=== PATIENT | male | born 1965 | race Caucasian/White ===

== ENCOUNTER 2021-12-31 10:44 | Emergency (ER) | payer OTHER, SELFPAY ==
--- NOTE | ~2021-12-31 | XR_ITS ---
EXAMINATION: XR chest 2V DATE: 12/31/2021 11:24 INDICATION: Chest pain TECHNIQUE: PA and lateral views of the chest were obtained. COMPARISON: None FINDINGS: Hyperexpansion of lungs with increased retrosternal clear space consistent with emphysema better appr eciated on prior cervical spine CT dated 03/20/2015. A couple small calcified nodules in the right low er lung zone and calcified right hilar lymph nodes consistent with old granulomatous disease. No pneu monia, pulmonary edema, pleural effusion or pneumothorax. The cardiomediastinal silhouette is normal. Moderate thoracic spondylosis. Mild anterior wedging of a midthoracic vertebral body. IMPRESSION: 1. No acute cardiopulmonary disease. 2. Emphysema. Reviewed, dictated and finalized at location B.
[2021-12-31 11:03] VITALS: BP 133/56; PULSE 67; RESP 16; TEMP 36.4; O2SAT 99
--- NOTE | 2021-12-31 11:09 | ED.CHESTPAIN ---
HPI - Chest Pain General Chief Complaint: Chest Pain Stated Complaint: Chest pain Time Seen by Provider: 12/31/21 11:09 Source: patient, RN notes reviewed and old records reviewed Mode of arrival: ambulatory Limitations: no limitations History of Present Illness HPI narrative: 56 year old male who presents to [facility] with complaints of upper epigastric pain radiating into chest causing a tightness feeling into his chest. Patient states that pain started about 1300 yesterday and he had to machine puller over on his way home from work due to his discomfort. Patient reports that he has had no nausea or vomiting or any diarrhea,has taken some antacids and also Pepto Bismol for his upper epigastric discomfort, also states that he feels bloated. Patient reports that he is a daily tobacco user, states no alcohol use for 27 years. Patient reports history of hypertension that he takes Lisinopril daily and he has history of anxiety and depression and ADHD. MD complaint: other (chest tightness) Onset (ago): hour(s) (since 1300 yesterday) Pain location: epigastric and parasternal Pain radiation: none Pain scale (0-10): 3 Quality: tightness Treatment prior to arrival: other (antacids) Related Data Allergies Allergy/AdvReac Type Severity Reaction Status Date / Time No Known Allergies Allergy Verified 12/31/21 13:10 Review of Systems Review of Systems: CONSTITUTIONAL: Denies fever, chills, or sweats. EYES: Denies visual changes, redness, or discharge. ENT: Denies rhinorrhea, congestion, sore throat, or otalgia. CARDIOVASCULAR: Reports tightness to his chest,no palpitations, or edema. RESPIRATORY: Denies cough or any acute dyspnea. GASTROINTESTINAL: Reports upper abdominal pain,denies nausea, vomiting, or diarrhea. GENITOURINARY: Denies dysuria or hematuria. SKIN: Denies rash or itching. MUSCULOSKELETAL: Denies back pain, joint pain, or myalgia. NEUROLOGIC: Denies headache, numbness, or weakness. PSYCHIATRIC: Positive for anxiety or depression, ADHD All systems reviewed & are unremarkable except as noted in HPI and below PMFSH Past Medical History Medical History Acute renal failure ADHD Anemia Essential hypertension Herniated disc Surgical History Surgical History H/O inguinal hernia repair History of surgery on lower extremity right lower leg surgery Family History Family History Mother Diabetes mellitus Social History Social History Smoking status: Current every day smoker Tobacco type: cigarettes Alcohol intake: former Alcohol use details: quit 27 years ago Substance use: unknown Gender identity (if verbalized by the patient): Male Comments At time of signature, agree with nursing past medical, surgical, social and family history. There is no relevant family history pertinent to the presenting complaint Exam Narrative: GENERAL: Well-appearing, fair nourished, and in no acute distress. HEAD: Normocephalic, atraumatic. EYES: PERRLA and EOMI. ENT: Nares clear, no rhinorrhea or epistaxis. Mucous membranes moist.TM's normal with good light reflex, throat pink with no lesions or exudate or tonsil swelling NECK: Supple.no lymphadenopathy CHEST: Clear to auscultation. No respiratory distress.SAO2 99% on room air HEART: Regular rate and rhythm. No murmur heard. Normal peripheral pulses.midsternal chest tightness with no radiation of pain no diaphoresis ABDOMEN: Soft, tender upper abdomen, nondistended, normal active bowel sounds denies any vomiting or any nausea or any episodes of diarrhea EXTREMITIES: Normal range of motion. No edema. SKIN: Warm, dry, no rash. NEURO: No focal deficits. Alert and oriented x3. Course Course Level of Care: Express Care Visit Vital Signs Vital signs: Vital Signs Tem
--- NOTE | 2021-12-31 12:01 | ECG_ITS ---
Measurements Intervals [place] Rate: 57 P: 68 OH: 147 QRS: 33 QRSD: 102 T: 66 QT: 417 QTc: 409 Interpretive Statements SINUS BRADYCARDIA POSSIBLE LEFT ATRIAL ENLARGEMENT [-0.1mV P-WAVE IN V1/V2] POSSIBLE LEFT VENTRICULAR HYPERTROPHY [VOLTAGE CRITERIA PLUS LAE OR QRS WIDENING] ABNORMAL ECG NO PREVIOUS ECG AVAILABLE FOR COMPARISON Electronically Signed On 12-31-2021 16:30:13 CDT by Gunnar Villarreal M.D.
== END 2021-12-31 12:14 | disposition short-term general hospital (02) ==
PROVIDERS: Emergency Provider Registered Nurse; PCP Physician Assistant
DX: R07.9 Chest pain, unspecified (principal); I10 Essential (primary) hypertension; Z87.891 Personal history of nicotine dependence; R94.31 Abnormal electrocardiogram [ECG] [EKG]
CPT/HCPCS: 71046; 93005; 99215; G0463

== ENCOUNTER 2021-12-31 12:36 | Observation (INO) | payer OTHER, SELFPAY ==
[2021-12-31] VITALS (12 sets, daily range): BP systolic 125–146; BP diastolic 81–92; PULSE 56–88; RESP 14–20; TEMP 36.2–36.6; O2SAT 98–100
--- NOTE | ~2021-12-31 | CT_ITS ---
EXAMINATION: CT abdomen pelvis wo con DATE: 01/01/2022 08:46 INDICATION: Abdominal pain. TECHNIQUE: Computed tomography (CT) of the abdomen and pelvis was performed without intravenous contr ast. Automated exposure control and iterative reconstruction technique were employed. The dose-length product was 208.31 mGy-cm. COMPARISON: CT abdomen and pelvis 05/27/2018 FINDINGS: The visualized portions of the lung bases demonstrate mild atelectasis. No pleural effusion . The heart size is normal. No pericardial effusion. There is a 13 mm cyst in the liver. The gallblad maureen, spleen, pancreas, and adrenal glands are normal. There is cortical thinning of the kidneys. Ther e are cysts in the kidneys measuring up to 10 mm on the right. There is no urolithiasis. The prostate is mildly enlarged. There are no dilated loops of bowel. The appendix is normal. There is fat strand ing adjacent to the gastric antrum. There are no pathologically enlarged lymph nodes. There is no richard e intraperitoneal fluid. There is severe lower lumbar spondylosis. IMPRESSION: 1. Fat stranding adjacent to the gastric antrum suspicious for peptic ulcer disease. Reviewed, dictated and finalized at location A. IMPRESSION: 1. Fat stranding adjacent to the gastric antrum suspicious for peptic ulcer dis ease.
--- NOTE | ~2021-12-31 | NM_ITS ---
EXAMINATION: NM leelee stress w perfusion DATE: 01/01/2022 13:32 INDICATION: Chest pain TECHNIQUE: Rest images were obtained following intravenous administration of 10.2 mCi Tc99m tetrofosm in (Myoview). The patient was infused intravenously with Lexiscan (Regadenoson). Then, 31.6 mCi Tc99m tetrofosmin (Myoview) was administered intravenously, and stress images were obtained. Data was dmitry nstructed into short axis and horizontal and vertical long axis SPECT images. Gated SPECT images were also obtained. COMPARISON: None. FINDINGS: Mild nonreversible perfusion defect consistent with infarct involving the apical septal, mi d anteroseptal and mid inferoseptal segments. No reversible ischemia. There is normal left ventricul ar chamber size, wall motion and ejection fraction. Left ventricular ejection fraction measures >70% . IMPRESSION: 1. Mild nonreversible infarct at the apical septal, mid anteroseptal and mid posterior septal segment s. 2. Normal left ventricular ejection fraction measuring >70%. Reviewed, dictated and finalized at location B. IMPRESSION: 1. Mild nonreversible infarct at the apical septal, mid anteroseptal and mid po sterior septal segments. 2. Normal left ventricular ejection fraction measuring >70%.
--- NOTE | 2021-12-31 12:40 | ECG_ITS ---
Measurements Intervals [place] Rate: 61 P: 58 DC: 145 QRS: 29 QRSD: 106 T: 71 QT: 395 QTc: 400 Interpretive Statements SINUS RHYTHM NO PREVIOUS ECG AVAILABLE FOR COMPARISON Electronically Signed On 01-02-2022 13:09:15 CDT by Gloria Castillo M.D.
--- NOTE | 2021-12-31 13:04 | ED.CHESTPAIN ---
HPI - Chest Pain General Chief Complaint: Chest Pain Stated Complaint: chest pain Time Seen by Provider: 12/31/21 12:39 Source: patient Mode of arrival: ambulatory Limitations: no limitations History of Present Illness HPI narrative: Patient is a 56-year-old male complain of chest pain, midsternal, tightness, was 6 out of 10, currently no pain, nonradiating started last night. Patient denies any shortness of breath, abdominal pain, nausea, vomiting, diaphoresis, fever or chills. Related Data Allergies Allergy/AdvReac Type Severity Reaction Status Date / Time No Known Allergies Allergy Verified 12/31/21 13:10 Review of Systems Review of Systems: All systems reviewed & are unremarkable except as noted in HPI and below Constitutional: Constitutional: Denies body ache(s), Denies chills, Denies excessive sweating, Denies fatigue, Denies fever(s), Denies headache(s), Denies lethargy, Denies malaise, Denies weakness and Denies weight loss Eyes: Eyes: Denies blurry vision, Denies change in vision and Denies loss of vision ENT: Denies dizziness, Denies ear discharge, Denies headache(s), Denies lip swelling, Denies epistaxis, Denies nasal congestion, Denies neck pain, Denies throat swelling and Denies tongue swelling Cardiovascular: Cardiovascular: Denies chest pain at rest, Denies chest pain with activity, Denies diaphoresis, Denies rapid heart rate, Denies edema, Denies irregular heart rhythm, Denies lightheadedness, Denies palpitations, Denies dyspnea and Denies dyspnea on exertion Respiratory: Respiratory: Denies chest congestion, Denies cough, Denies hemoptysis, Denies dyspnea and Denies dyspnea on exertion Gastrointestinal: Gastrointestinal: Denies abdominal pain, Denies melena, Denies hematochezia, Denies diarrhea, Denies nausea, Denies vomiting and Denies hematemesis Musculoskeletal: Musculoskeletal: Denies abnormal gait, Denies deformity, Denies joint swelling, Denies limited range of motion, Denies neck pain and Denies numbness Neurologic: Denies Abnormal speech present, Denies abnormal gait, Denies confusion, Denies dizziness, Denies headache(s), Denies focal weakness, Denies loss of vision, Denies numbness, Denies Other visual disturbances, Denies Sensory deficit (Neuro) and Denies weakness Psychiatric: Psychiatric: Denies confusion, Denies depression, Denies auditory hallucinations, Denies homicidal ideation and Denies suicidal ideation Endocrine: Endocrine: Denies cold intolerance, Denies excessive sweating, Denies fatigue, Denies heat intolerance and Denies palpitations Hematologic/Lymphatic: Hematologic/Lymphatic: Denies easy bleeding and Denies easy bruising Allergic/Immunologic: Allergic/Immunologic: Denies lip swelling, Denies throat swelling and Denies tongue swelling PMFSH Past Medical History Medical History Acute renal failure ADHD Anemia Essential hypertension Herniated disc Surgical History Surgical History H/O inguinal hernia repair History of surgery on lower extremity right lower leg surgery Family History Family History Mother Diabetes mellitus Social History Social History Smoking status: Current every day smoker Tobacco type: cigarettes Alcohol intake: former Alcohol use details: quit 27 years ago Substance use: unknown Gender identity (if verbalized by the patient): Male Exam Const: General: cooperative, healthy appearing, comfortable, no acute distress, well developed, alert and awake; No confusion Orientation/consciousness: oriented to person, oriented to place, oriented to time, patient oriented x3 and No confusion Limitations: no limitations HENMT: Head: normal to inspection, normocephalic and atraumatic Ears: hearing grossly normal bilaterally,
[2021-12-31] MEDS: ASPIRIN 81 MG CHEWABLE TABLET 324 MG PO (13:11)
[2021-12-31 13:20] LABS: Basophils Percent Auto 0.5 % (0.2-1.2); Eosinophils Absolute Auto 0.2 K/mm3 (0-0.3); Eosinophils Percent Auto 2.3 % (0-4.4); Hematocrit 33.9 % (42.0-52.0); Hemoglobin 10.9 g/dL (14.0-18.0); Immature Granulocyte Absolute 0.02 K/mm3 (0.00-0.031); Immature Granulocyte Percent A 0.2 % (0-0.5); Lymphocytes Percent Auto 23.7 % (18.3-44.2); Mean Corpuscular HGB Conc 32.2 g/dl (32-36); Mean Corpuscular Hemoglobin 30.1 pg (26-34); Mean Corpuscular Volume 93.6 fl (80-100); Mean Platelet Volume 8.7 fl (7.4-10.4); Monocytes Absolute Auto 0.9 K/mm3 (0.1-0.6); Monocytes Percent Auto 9.8 % (2.6-8.5); Neutrophils Absolute Auto 5.6 K/mm3 (1.3-6.7); Neutrophils Percent Auto 63.5 % (45.5-73.1); Platelet Count Result 335 k/mm3 (150-375); Red Blood Count 3.62 M/mm3 (4.6-6.20); Red Cell Distribution Width 13.5 % (11.5-14.5); White Blood Count 8.9 K/mm3 (4.5-10.0)
[2021-12-31 13:29] LABS: Alanine Aminotransferase 21 U/L (4-50); Albumin Level 4.4 g/dL (3.5-5.1); Alkaline Phosphatase 66 U/L (38-126); Anion Gap 6 mmol/L (8-16); Aspartate Amino Transferase 30 U/L (17-59); Bilirubin,Total 0.1 mg/dL (0.2-1.3); Blood Urea Nitrogen 23 mg/dL (9-20); Calcium 9.1 mg/dL (8.4-10.2); Carbon Dioxide 23 mmol/L (22-30); Chloride 108 mmol/L (98-107); Estimated CRCL calculation 54 ml/min; Estimated Glomerular Filt Rate 57; Glucose 85 mg/dL (65-110); Lipase 147 U/L (23-300); Potassium 3.8 mmol/L (3.4-5.0); Sodium 137 mmol/L (137-145)
[2021-12-31 13:41] LABS: Troponin I < 0.012 ng/mL (0.000-0.034)
[2021-12-31 15:39] LABS: Troponin I < 0.012 ng/mL (0.000-0.034)
[2021-12-31 16:01] LABS: INR 1.1; Prothrombin Time 13.9 Seconds (11.1-14.7)
--- NOTE | 2021-12-31 17:07 | PC.NURSE ---
nitro not given, pt denied pain, provider aware
--- NOTE | 2021-12-31 19:52 | PM.IMHP ---
H&P: HPI History of Present Illness Date/Time: 12/31/21 19:52 Chief Complaint: Chest pain. Narrative: This is a 56-year-old male with past medical history significant for hypertension, generalized anxiety disorder. Patient presented to emergency room due to epigastric pain with near-syncope episode, diaphoresis, dizziness, no shortness of breath, no nausea, no vomiting patient had similar episode the day before when driving home have to stop by the side of the road patient resolved on its own to repeat today when patient decided to come to the emergency room for evaluation. Patient initially presented to urgent care facility where he was urged to come to the emergency room and he was sent by ambulance. Patient has been in his usual state of health prior to these denies any PND, orthopnea, leg swelling, shortness of breath. Pain is localized to the epigastric area nonradiating. Preliminary workup has been essentially nonrevealing. Review of Systems Review of Systems: Epigastric pain. Constitutional: Constitutional: Denies chills, Denies fatigue, Denies fever(s), Denies malaise, Denies night sweats, Denies poor appetite and Denies weakness Eyes: Eyes: Denies change in vision ENT: Denies dysphagia, Denies vertigo, Denies nasal congestion, Denies nasal discharge, Denies nasal obstruction and Denies odynophagia Cardiovascular: Cardiovascular: Reports chest pain, Denies pedal edema, Denies leg edema, Reports lightheadedness, Denies radiating jaw, neck or arm pain, Denies palpitations, Denies dyspnea on exertion and Denies orthopnea Respiratory: Respiratory: Denies cough Gastrointestinal: Gastrointestinal: Denies dyspepsia, Denies heartburn, Denies nausea and Denies vomiting Genitourinary: Genitourinary: Denies dysuria Musculoskeletal: Musculoskeletal: Denies arthralgias Integumentary/Breasts: Skin/Breast: Denies rash Neurologic: Denies focal weakness and Denies Sensory deficit (Neuro) Psychiatric: Psychiatric: Reports no additional psychiatric complaints and Reports as per HPI Endocrine: Endocrine: Denies cold intolerance, Denies heat intolerance, Denies polyphagia, Denies polydipsia and Denies palpitations Hematologic/Lymphatic: Hematologic/Lymphatic: Reports no additional hematologic/lymphatic complaints and Reports as per HPI Allergic/Immunologic: Allergic/Immunologic: Reports no additional allergic/immunologic complaints and Reports as per HPI [facility] Past Medical History Medical History (Updated 01/01/22 @ 02:58 by Heydi Martin MD) Acute renal failure ADHD Anemia Essential hypertension Herniated disc Surgical History Surgical History H/O inguinal hernia repair History of surgery on lower extremity right lower leg surgery Family History Family History Mother Diabetes mellitus Social History Social History Smoking status: Light tobacco smoker Tobacco type: cigarettes Alcohol intake: never Alcohol use details: quit 27 years ago Substance use: never Substance use type: does not use Gender identity (if verbalized by the patient): Male Spiritual care concerns: No Meds Home Medications and Allergies Home Medications Medication Instructions Recorded Confirmed Type lisinopril 10 mg tablet 10 mg PO DAILY #90 tablet 12/01/19 12/31/21 Rx bupropion HCl 150 mg PO Q12H 12/31/21 12/31/21 History Allergies Allergy/AdvReac Type Severity Reaction Status Date / Time No Known Allergies Allergy Verified 12/31/21 13:10 Vital Signs Vital Signs - 24 hr 12/31/21 12:36 12/31/21 13:10 12/31/21 13:30 Temperature 97.6 F Pulse Rate 57 L 56 L 63 Respiratory Rate 16 17 Blood Pressure 126/83 125/89 Pulse Oximetry 98 98 12/31/21 14:30 12/31/21 15:19 12/31/21 16:50 Temperature Pulse Rate 58 L 60 88 Respirato
--- NOTE | 2021-12-31 21:12 | PC.NURSE ---
Patient ate [employer] brought in by family member. Reports chest pain worsened after eating. Admitting physician Mario made aware. Morphine ordered and administered.
[2021-12-31] MEDS: MORPHINE SULFATE (*CRX) 2 MG/ML INJ 1 MG IV PUSH (21:13)
[2021-12-31 21:48] LABS: Troponin I < 0.012 ng/mL (0.000-0.034)
--- NOTE | 2021-12-31 21:56 | ADMGEN ---
This patient, Damon Raymundo Jr., was admitted to IMU Room 231-01. Patient/family oriented to hospital policies and general routines including ID bracelet, bed and alarms, visiting hours, pain management, procedures, bathroom and other care routines, personal items, smoking policy, room service/diet, and visiting hours. Information on how to activate the Rapid Response Team has been discussed. Patient/Family are encouraged to report perceived risks to care and to ask questions if they do not understand what they are told or what they should do.
[2021-12-31] MEDS: PANTOPRAZOLE SODIUM IV 40 MG VIAL IV PUSH (23:44)
[2021-12-31] MEDS: buPROPion HCL SR (12 HR) 150 MG TAB PO (23:44)
[2021-12-31] MEDS: polyethylene glycoL 3350 17 GM POWD.PACK PO (23:44)
[2021-12-31] MEDS: HYDROmorphone HCL INJ (*CRX) 1 MG/ML SYR 0.5 MG IV PUSH (23:45)
[2022-01-01] VITALS (15 sets, daily range): BP systolic 101–120; BP diastolic 62–75; PULSE 60–89; RESP 18–20; TEMP 36.1–37.2; O2SAT 96–100
--- NOTE | 2022-01-01 02:51 | EST_ITS ---
Patient Info Name: Damon Raymundo Age: 56 years : 1965 Gender: Male Ht: 68 in Wt: 160 lbs BSA: 1.87 m2 Exam Date: 01/01/2022 12:07 PM Exam Location: [facility] Stress Patient Status: Inpatient Admit Date: 12/31/2021 Staff Ordering Physician: Heydi Martin MD Attending Provider: HELLEN TREVIÑO NP Exercise Technologist: Alyce Montalvo RDCS Nurse: HELLEN TREVIÑO NP Exam Type: CA stress leelee w NM Study Info Indications R07.9 - Chest pain, unspecified A regadenoson stress test was performed. Summary 1. No abnormal ST-T wave changes with lexiscan. 2. Nuclear test results to follow. Protocol: Lexiscan Stress ECG Details Stage: REST Duration (min): 8 min : 8 sec HR (bpm): 64 SBP (mmHg): 113 DBP (mmHg): 81 Stage: REST Duration (min): 21 min : 38 sec HR (bpm): 74 SBP (mmHg): 113 DBP (mmHg): 81 Stage: STAGE 1 Duration (min): 1 min : 0 sec HR (bpm): 84 SBP (mmHg): 121 DBP (mmHg): 81 Stage: RECOVERY Duration (min): 1 min : 0 sec HR (bpm): 92 SBP (mmHg): 138 DBP (mmHg): 84 Stage: RECOVERY Duration (min): 2 min : 0 sec HR (bpm): 93 SBP (mmHg): 138 DBP (mmHg): 84 Stage: RECOVERY Duration (min): 3 min : 0 sec HR (bpm): 88 SBP (mmHg): 136 DBP (mmHg): 73 Stage: RECOVERY Duration (min): 3 min : 4 sec HR (bpm): 88 SBP (mmHg): 136 DBP (mmHg): 73 Rest HR: 74 bpm Peak HR: 98 bpm Rest Sys BP: 113 mmHg Peak Sys BP: 138 mmHg Max Pred HR: 163 bpm % Max Pred HR: 60 % Target HR: 139 bpm Max RPP: 13,524 bpm*mmHg Total Time: 1 min : 0 sec Rest Barger BP: 81 mmHg Peak Barger BP: 84 mmHg Total Dose: 0.4 mg Resting ECG Normal sinus rhythm - normal ECG. Stress ECG No abnormal ST/T wave changes with exercise. Arrhythmias None. Report Signatures
[2022-01-01] MEDS: lisinopriL 10 MG TABLET PO (09:09)
[2022-01-01] MEDS: buPROPion HCL SR (12 HR) 150 MG TAB PO ×2 (09:09→20:52)
[2022-01-01] MEDS: ENOXAPARIN 40 MG/0.4 ML SYRINGE SUB-Q (09:09)
[2022-01-01] MEDS: HYDROmorphone HCL INJ (*CRX) 1 MG/ML SYR 0.5 MG IV PUSH ×3 (09:17→23:30)
--- NOTE | 2022-01-01 11:20 | PC.NURSE ---
Patient off floor to Stress test.
--- NOTE | 2022-01-01 13:20 | PC.NURSE ---
Patient back from stress test without issue.
--- NOTE | 2022-01-01 16:46 | PM.IMPN ---
Progress Note: A&P Assessment and Plan (1) Chest pain: Qualifiers: Chest pain type: unspecified Qualified Code(s): R07.9 - Chest pain, unspecified Code(s): R07.9 - Chest pain, unspecified Status: Acute Assessment and Plan: Stress test in the morning Serial troponins EKG reviewed Continue to monitor Supportive care 01/01/2022 interval history: patient with complaint of chest pain with near syncopal episode, diaphoresis dizziness while driving patient had a similar episodes twice presented emergency department for further evaluation history sets of cardiac enzymes are negative there are no acute changes on EKG to further evaluate patient had a Lexiscan test it showed my non reversible defect, however patient symptoms as a convincing for CO will consult disaster director for further recommendation, will monitor and follow up. (2) Essential hypertension: Code(s): I10 - Essential (primary) hypertension Status: Acute Assessment and Plan: Continue home meds Continue to monitor Subjective Date/time seen: 01/01/22 16:46 Chief Complaint: Chest pain. Narrative: This is a 56-year-old male with past medical history significant for hypertension, generalized anxiety disorder. Patient presented to emergency room due to epigastric pain with near-syncope episode, diaphoresis, dizziness, no shortness of breath, no nausea, no vomiting patient had similar episode the day before when driving home have to stop by the side of the road patient resolved on its own to repeat today when patient decided to come to the emergency room for evaluation. Patient initially presented to urgent care facility where he was urged to come to the emergency room and he was sent by ambulance. Patient has been in his usual state of health prior to these denies any PND, orthopnea, leg swelling, shortness of breath. Pain is localized to the epigastric area nonradiating. Preliminary workup has been essentially nonrevealing. 01/01/2022 interval history: patient with complaint of chest pain with near syncopal episode, diaphoresis dizziness while driving patient had a similar episodes twice presented emergency department for further evaluation history sets of cardiac enzymes are negative there are no acute changes on EKG to further evaluate patient had a Lexiscan test it showed my non reversible defect, however patient symptoms as a convincing for CO will consult disaster director for further recommendation, will monitor and follow up. Review of Systems Review of Systems: All systems reviewed & are unremarkable except as noted in HPI and below Exam Narrative: Patient is comfortable, NAD HEENT: eyes are clear and none icteric LUNGS: normal respiratory effort ABD: not distended Lower extremities: no edema SKIN: nonjaundiced Neuro: grossly intact. Objective Data Vital Signs Vital Signs: Vital Signs - 24 hr 12/31/21 16:50 12/31/21 20:00 12/31/21 21:00 Temperature 98 F Pulse Rate 88 75 69 Respiratory Rate 16 17 18 Blood Pressure 146/88 H 143/85 H 139/89 Pulse Oximetry 98 99 98 12/31/21 21:31 12/31/21 22:00 12/31/21 22:13 Temperature 97.2 F L Pulse Rate 75 64 62 Respiratory Rate 17 20 Blood Pressure 132/89 140/81 Pulse Oximetry 98 100 12/31/21 23:19 01/01/22 00:00 01/01/22 02:00 Temperature 97.2 F L Pulse Rate 72 60 64 Respiratory Rate 18 18 Blood Pressure 135/86 Pulse Oximetry 100 100 01/01/22 04:00 01/01/22 06:00 01/01/22 08:00 Temperature 97.1 F L Pulse Rate 66 68 89 Respiratory Rate 20 Blood Pressure 101/75 Pulse Oximetry 99 01/01/22 08:06 01/01/22 08:12 01/01/22 10:00 Temperature 99.0 F Pulse Rate 80 63 Respiratory Rate 18 Blood Pressure 120/75 Pulse Oximetry 97 97 01/01/22 12:00 01/01/22 14:00 01/01/22 16:00 Temperature Pulse Rate 69 77 76 Respiratory Rate Blood Pressure Pulse Oximetry 01/01/22 16:10 Temperature 98.0 F Pulse Rate 79
--- NOTE | 2022-01-01 17:16 | PM.CNCAR ---
Assessment and Plan Additional Plan This is a 56-year-old man with no prior cardiac history who has had a couple of episodes of concerning chest pain. Risk factors include hypertension and smoking. ECG and biomarkers do not show any evidence of acute coronary syndrome. He does however have a Lexiscan nuclear study which interestingly shows mild fixed defects in the anteroseptal segment and septum. It is therefore not a normal exam. He should undergo a coronary angiogram in this setting I will arrange for the procedure to be done tomorrow morning. The catheterization procedure in detail as well as the risks of been explained to the patient he understands this and is agreeable to proceed Gunnar Villarreal MD [facility] History of Present Illness History of Present Illness Consult date/time: 01/01/22 17:16 Consult reason: chest pain Reason For Visit: Chest Pain Narrative: This is a 56-year-old man that I am seeing at the request of the hospitalist because of chest pain and presumably because of abnormal findings on a nuclear stress test that was done earlier today. The patient has no prior history of cardiac problems. He does have hypertension and a longstanding history of cigarette smoking. 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 in the morning. He described a severe pressure-like sensation in the center of the chest with some radiation into the epigastrium. The discomfort lasted for a while is very hard time answering questions as to how long it was there all together. Eventually it subsided and he went home and rested the rest of the night. The discomfort occurred again this morning while he was at work in his coworkers told him to go home from work he came to the emergency department where he was evaluated and admitted. Patient's electrocardiograms that are in the chart look normal. His troponin levels look normal. A Lexiscan nuclear stress test was done which is mildly abnormal with what is described as a fixed defect in the anteroseptal segment and the septum. The patient in this setting is being seen in consultation. In his usual health he states he is able to conduct normal activities and does not notice any exertional symptomatology. He is not reporting any symptoms orthopnea PND or edema. He appears to be comfortable when I entered the room to see him is a talking on the telephone with his sister. Review of Systems Constitutional: Constitutional: Reports no additional constitutional complaints Eyes: Eyes: Reports no additional eye complaints ENT: Reports system reviewed and no additional complaints, except as documented Cardiovascular: Cardiovascular: Reports as per HPI Respiratory: Respiratory: Reports as per HPI Gastrointestinal: Gastrointestinal: Reports no additional gastrointestinal complaints Musculoskeletal: Musculoskeletal: Reports no additional musculoskeletal complaints Integumentary/Breasts: Skin/Breast: Reports system reviewed and no additional complaints, except as docu Neurologic: Reports system reviewed and no additional complaints, except as documented Endocrine: Endocrine: Reports no additional endocrine complaints Hematologic/Lymphatic: Hematologic/Lymphatic: Reports no additional hematologic/lymphatic complaints Allergic/Immunologic: Allergic/Immunologic: Reports no additional allergic/immunologic complaints [facility] Past Medical History Medical History (Updated 01/01/22 @ 02:58 by Heydi Martin MD) Acute renal failure ADHD Anemia Essential hypertension Herniated disc Surgical History Surgical History H/O inguinal hernia repair History of surgery on lower extremity right lower leg surgery Family History Family History (Reviewed 12/31/21 @ 13:06 by Kunal
--- NOTE | 2022-01-01 19:30 | PC.NURSE ---
Reviewed plan of care with patient and sister
[2022-01-02] VITALS (16 sets, daily range): BP systolic 97–118; BP diastolic 63–77; PULSE 63–88; RESP 16–20; TEMP 36.2–37; O2SAT 94–98
[2022-01-02] MEDS: lisinopriL 10 MG TABLET PO (08:29)
[2022-01-02] MEDS: buPROPion HCL SR (12 HR) 150 MG TAB PO (08:29)
[2022-01-02] MEDS: HYDROmorphone HCL INJ (*CRX) 1 MG/ML SYR 0.5 MG IV PUSH (08:35)
--- NOTE | 2022-01-02 10:21 | WPDCARDPROC ---
Cardiac Cath Procedure Note Date of procedure:: 01/02/22 Performing physician:: Gunnar Villarreal MD Indication:: chest pain abnormal nuclear stress Brief clinical history:: this is a 56-year-old man with a couple of recent episodes of chest pain that are atypical of angina. He does have risk factors including hypertension and dyslipidemia. He had a nuclear stress test yesterday which showed a anteroapical and septal defect that appears to be fixed. Patient's ECG and biomarkers were negative for ACS. In this setting and angiogram has been recommended. Procedure Procedure performed:: Left ventriculogram coronary angiogram Angio-Seal to right femoral artery Sedation/Medication given:: fentanyl 25 mg Versed 2 mg case start time 10:03 a.m. case end time 10:17 a.m. sedation provided by Lizette Voss RN, trained observer Access site:: right femoral artery Estimated blood loss:: 20 cc Procedure note:: patient was brought to the cardiac catheterization lab in the postabsorptive state where the right femoral triangle was prepared and draped in the normal fashion. Anesthesia was provided with 1% lidocaine infiltrated locally. Using the modified Seldinger technique the right common femoral artery was punctured 5 Haitian vascular sheath was placed. After this a 5 Haitian angled pigtail catheter was used to perform a left ventriculogram in the AQUINO projection and to document left-sided central hemodynamics. Following this standard 5 Haitian FL4 catheter was used to engage and inject the left coronary artery in multiple projections. A 5 Haitian JR4 catheter was used to engage and inject the right coronary artery. After this the cineangiograms were reviewed and the case was terminated. An angiogram was done of the femoral artery through the sheath after which an Angio-Seal device was deployed with a good hemostatic result. There were no signs of any procedural complications and patient left the pathology laboratory technologist with no evidence of a groin hematoma. Findings:: Hemodynamics: Central aortic pressure is 130 over 72 left ventricle 130/0 end-diastolic pressure 8 there is no gradient on pullback across the aortic valve. Left ventricle: The LV is normal in size all segments contract appropriately the global ejection fraction I would visually estimated to be 60%. The left main coronary artery is nicely patent the left anterior descending is a medium caliber artery extending down to around the apex providing the apical portion of the inferior wall as well. The LAD has some moderate tortuosity but otherwise is angiographically normal. The circumflex is a medium caliber artery giving rise to the marginal branches. The circumflex is smooth and angiographically normal. The right coronary artery is large caliber dominant to the posterior circulation. The proximal RCA has a copeland's crook appearance but is otherwise widely patent smooth and angiographically normal in appearance. Conclusion:: 1. Right coronary dominant circulation no evidence of coronary artery disease 2. normal left ventricular systolic function 3. based on these findings recent chest pain episodes appear to be not related to myocardial ischemia 4. stress test is a false-positive [facility]real [facility]
[2022-01-02] MEDS: SODIUM CHLORIDE 0.9% IV 1,000 ML 125 ML IV CONT (10:40)
--- NOTE | 2022-01-02 13:47 | PM.DS ---
DS: Admitting Diagnosis Discharge Date 01/02/2022 Admitting Diagnosis Chest pain DS: Discharge Diagnosis Discharge Diagnosis (1) Chest pain: Qualifiers: Chest pain type: unspecified Qualified Code(s): R07.9 - Chest pain, unspecified Code(s): R07.9 - Chest pain, unspecified Status: Acute Assessment and Plan: Stress test in the morning Serial troponins EKG reviewed Continue to monitor Supportive care 01/01/2022 interval history: patient with complaint of chest pain with near syncopal episode, diaphoresis dizziness while driving patient had a similar episodes twice presented emergency department for further evaluation history sets of cardiac enzymes are negative there are no acute changes on EKG to further evaluate patient had a Lexiscan test it showed my non reversible defect, however patient symptoms as a convincing for [place] will consult director of math for further recommendation, will monitor and follow up. (2) Essential hypertension: Code(s): I10 - Essential (primary) hypertension Status: Acute Assessment and Plan: Continue home meds Continue to monitor DS: Summary Hospital Course Reason for hospitalization: Chief Complaint: Chest pain. Narrative: This is a 56-year-old male with past medical history significant for hypertension, generalized anxiety disorder. Patient presented to emergency room due to epigastric pain with near-syncope episode, diaphoresis, dizziness, no shortness of breath, no nausea, no vomiting patient had similar episode the day before when driving home have to stop by the side of the road patient resolved on its own to repeat today when patient decided to come to the emergency room for evaluation. Patient initially presented to urgent care facility where he was urged to come to the emergency room and he was sent by ambulance. Patient has been in his usual state of health prior to these denies any PND, orthopnea, leg swelling, shortness of breath. Pain is localized to the epigastric area nonradiating. Preliminary workup has been essentially nonrevealing. Hospital Course: 01/01/2022 interval history: patient with complaint of chest pain with near syncopal episode, diaphoresis dizziness while driving patient had a similar episodes twice presented emergency department for further evaluation history sets of cardiac enzymes are negative there are no acute changes on EKG to further evaluate patient had a Lexiscan test it showed my non reversible defect, however patient symptoms as a convincing for [place] will consult director of math for further recommendation, will monitor and follow up. patient with chest 3 sets of cardiac enzymes were negative no acute changes on EKG patient had a Lexiscan test did not show any reversible ischemia however patient presentation with chest pain diaphoresis and he had to stop while driving suspicious for coronary artery disease patient was seen by director of math and had a cardiac catheterization was essentially normal suggested his pain did not originate from heart, most likely musculoskeletal and anxiety and patient is on the lateral is from work and home Status at Discharge Functional status at discharge: independent ambulation Overall status at discharge: patient is back to baseline Time Spent with Patient Time attestation: Total time spent providing and/or coordinating discharge services: Patient was seen and examined at the time of the discharge Condition at discharge is stable Code status: Full code. Time spent preparing discharge summary, discharge medications, discussing discharge planning with block and case maker and patient is 35 minutes. Time spent: Greater than 30 minutes Exam Narrative: Patient is comfortable, NAD HEENT: eyes are clear and none icteric LUNGS: normal respiratory effort ABD: not distended Lower extremities: no edema SKIN: nonjaundiced Neuro: grossly intact. Discharge Plan Discharge Attending physician on discharge:
== END 2022-01-02 14:36 | disposition home or self-care (01) ==
LOC: ANHED 15:23 → ANHIMU 22:34
PROVIDERS: Specialist; Admitting Provider Internal Medicine; Emergency Provider Emergency Medicine; PCP Physician Assistant; Visit Provider Family Medicine
PROC: 4A023N7 Measurement of Cardiac Sampling and Pressure, Left Heart, Percutaneous Approach (ICD-10-PCS; CPT 93452; principal; 2022-01-02 10:00)
DX: R07.9 Chest pain, unspecified (principal); I10 Essential (primary) hypertension; F17.210 Nicotine dependence, cigarettes, uncomplicated; R94.39 Abnormal result of other cardiovascular function study; E78.5 Hyperlipidemia, unspecified
CPT/HCPCS: 36415; 71046; 74176; 78452; 80053; 83690; 84484; 85025; 85610; 85730; 93005; 93017; 93458; 96372; 96374; 96375; 96376; 99285; A9270; A9502; C1760; C1887; C1894; C9113; G0269; G0378; J1170; J1644; J1650; J2250; J2270; J2785; J3010; J7030; J7040

== ENCOUNTER 2022-01-25 17:07 | Emergency (ER) | payer OTHER, SELFPAY ==
[2022-01-25 17:19] VITALS: BP 141/101; PULSE 93; RESP 24; TEMP 37.2; O2SAT 97
--- NOTE | 2022-01-25 17:28 | ED.WOUNDLAC ---
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 Patient states that his tetanus is not up to date so will be updated while here today. Patient has moderate amount of bleeding noted from laceration site with full mobility of finger noted. Patient reports that he has no tingling or numbness in his left middle finger, nail bed blanches briskly. Onset (ago): hour(s) (within the past) Extremity Location: Left: hand (dorsal aspect left medial phalange 3rd finger) Place: work Patient tetanus UTD: No Context: accidental Associated symptoms: none Treatments prior to arrival: bandage and other (cleansed with peroxide) Related Data Home Medications Medication Instructions Recorded Confirmed bupropion HCl 150 mg PO Q12H 12/31/21 01/25/22 aripiprazole 2 mg PO DAILY 01/25/22 01/25/22 omeprazole 40 mg PO DAILY 01/25/22 01/25/22 sucralfate 1 g PO DAILY 01/25/22 01/25/22 Allergies Allergy/AdvReac Type Severity Reaction Status Date / Time No Known Allergies Allergy Verified 01/25/22 17:08 Review of Systems Review of Systems: CONSTITUTIONAL: Denies fever, chills, or sweats. EYES: Denies visual changes, redness, or discharge. ENT: Denies rhinorrhea, congestion, sore throat, or otalgia. CARDIOVASCULAR: Denies chest pain, palpitations, or edema. RESPIRATORY: Denies cough or dyspnea. GASTROINTESTINAL: Denies abdominal pain, nausea, vomiting, or diarrhea. GENITOURINARY: Denies dysuria or hematuria. SKIN: Denies rash or itching.Positive for laceration to left dorsal finger 1.5cm linear wound. MUSCULOSKELETAL: Denies back pain, joint pain, or myalgia. NEUROLOGIC: Denies headache, numbness, or weakness. PSYCHIATRIC: Denies anxiety or depression. All systems reviewed & are unremarkable except as noted in HPI and below PMFSH Past Medical History Medical History Acute renal failure ADHD Anemia Essential hypertension Herniated disc Surgical History Surgical History H/O inguinal hernia repair History of surgery on lower extremity right lower leg surgery Family History Family History Mother Diabetes mellitus Social History Social History Smoking status: Light tobacco smoker Tobacco type: cigarettes Alcohol intake: never Alcohol use details: quit 27 years ago Substance use: never Substance use type: does not use Gender identity (if verbalized by the patient): Male Spiritual care concerns: No Comments At time of signature, agree with nursing past medical, surgical, social and family history. There is no relevant family history pertinent to the presenting complaint Exam Narrative: GENERAL: Well-appearing, well-nourished, and in no acute distress. HEAD: Normocephalic, atraumatic. EYES: PERRLA and EOMI. ENT: Nares clear, no rhinorrhea or epistaxis. Mucous membranes moist.TM's normal with good light reflex, throat pink with no lesions or exudates no swelling of tonsils NECK: Supple.no lymphadenopathy CHEST: Clear to auscultation. No respiratory distress.respiration even and nonlabored with SAO2 97% on room air HEART: Regular rate and rhythm. No murmur heard. Normal peripheral pulses. ABDOMEN: Soft, nontender, nondistended, normal active bowel sounds. EXTREMITIES: Normal range of motion. No edema. 1.5cm laceration noted to left dorsal 3rd finger with full mobility of fi
[2022-01-25] MEDS: TETANUS,DIPHTHERIA,AC PERTUSSIS ADULT (0.5 ML) BOOSTRIX IM (18:06)
== END 2022-01-25 18:16 | disposition home or self-care (01) ==
PROVIDERS: Emergency Provider Registered Nurse; PCP Physician Assistant
DX: S61.219A Laceration without foreign body of unspecified finger without damage to nail, initial encounter (principal); W26.8XXA Contact with other sharp object(s), not elsewhere classified, initial encounter; Z23 Encounter for immunization; F17.210 Nicotine dependence, cigarettes, uncomplicated; I10 Essential (primary) hypertension
CPT/HCPCS: 12001; 90471; 90715; 99213; G0463

== ENCOUNTER 2024-02-25 13:34 | Outpatient (CLI) | payer OTHER, SELFPAY ==
--- NOTE | ~2024-02-25 | XR_ITS ---
EXAMINATION: XR barium swallow DATE: 02/25/2024 14:14 INDICATION: Dysphagia. TECHNIQUE: The patient drank thick barium, gas-producing crystals, and thin barium. Fluoroscopy of th e hypopharynx and esophagus was performed. Fluoroscopy exposure time was 0.5 minutes. The total numbe r of images was 492. The dose-area product was 0.7 Gy-cm^2. COMPARISON: CT abdomen and pelvis 01/01/2022 FINDINGS: There is no mass or stricture of the esophagus. Esophageal motility is normal. There is no hiatal hernia. There was no gastroesophageal reflux with provocative maneuvers. IMPRESSION: 1. Normal esophagram. Reviewed, dictated and finalized at location A. IMPRESSION: 1. Normal esophagram.
[2024-02-25 14:30] LABS: Basophils Absolute Auto 0.1 K/mm3 (0.0-0.1); Basophils Percent Auto 0.9 % (0.2-1.2); Eosinophils Absolute Auto 0.5 K/mm3 (0-0.3); Eosinophils Percent Auto 5.5 % (0-4.4); Hematocrit 32.1 % (42.0-52.0); Hemoglobin 10.1 g/dL (14.0-18.0); Immature Granulocyte Absolute 0.02 K/mm3 (0.00-0.031); Immature Granulocyte Percent A 0.2 % (0-0.5); Lymphocytes Absolute Auto 1.85 K/mm3 (0.9-3.2); Lymphocytes Percent Auto 22.6 % (18.3-44.2); Mean Corpuscular HGB Conc 31.5 g/dl (32-36); Mean Corpuscular Volume 92.2 fl (80-100); Mean Platelet Volume 8.7 fl (7.4-10.4); Monocytes Absolute Auto 1.2 K/mm3 (0.1-0.6); Monocytes Percent Auto 14.3 % (2.6-8.5); Neutrophils Absolute Auto 4.6 K/mm3 (1.3-6.7); Neutrophils Percent Auto 56.5 % (45.5-73.1); Platelet Count Result 312 k/mm3 (150-375); Red Blood Count 3.48 M/mm3 (4.6-6.20); Red Cell Distribution Width 14.1 % (11.5-14.5); White Blood Count 8.2 K/mm3 (4.5-10.0)
[2024-02-25 18:06] LABS: Alanine Aminotransferase 25 U/L (6-50); Albumin Level 4.1 g/dL (3.5-5.1); Alkaline Phosphatase 59 U/L (38-126); Anion Gap 6 mmol/L (4-12); Aspartate Amino Transferase 34 U/L (17-59); Bilirubin,Total 0.2 mg/dL (0.2-1.3); Blood Urea Nitrogen 22 mg/dL (9-20); Calcium 9.4 mg/dL (8.4-10.2); Carbon Dioxide 29 mmol/L (22-30); Chloride 109 mmol/L (98-107); Cholesterol 187 mg/dL (0-200); Estimated Glomerular Filt Rate 57; Glucose 84 mg/dL (65-110); HDL Direct 50 mg/dL; Potassium 4.3 mmol/L (3.4-5.0); Sodium 144 mmol/L (137-145); Triglycerides 116 mg/dL (<150)
[2024-02-25 18:19] LABS: LDL Cholesterol Direct 107 mg/dL
[2024-02-25 18:38] LABS: Prostate Specific Antigen 5.5 ng/mL (< OR = 4.0); Thyroid Stimulating Hormone 0.465 uIU/mL (0.465-4.680)
[2024-02-25 18:52] LABS: Hemoglobin A1C 5.2 % (<5.7)
== END 2024-02-25 13:35 | disposition home or self-care (01) ==
PROVIDERS: PCP Physician Assistant; Visit Provider Physician Assistant
DX: R13.19 Other dysphagia (principal); Z79.899 Other long term (current) drug therapy; Z13.29 Encounter for screening for other suspected endocrine disorder; Z13.220 Encounter for screening for lipoid disorders; Z13.1 Encounter for screening for diabetes mellitus; Z12.5 Encounter for screening for malignant neoplasm of prostate
CPT/HCPCS: 36415; 74220; 80053; 80061; 83036; 84153; 84439; 84443; 85025

== ENCOUNTER 2024-10-08 09:51 | Emergency (ER) | payer OTHER, SELFPAY ==
--- NOTE | ~2024-10-08 | CT_ITS ---
EXAMINATION: CTA chest PE protocol DATE: 10/08/2024 13:32 LEASE EXAMINER INDICATION: Chest pain and shortness of breath with near syncope TECHNIQUE: Computed tomographic angiography (CTA) of the chest was performed with 100 mL Omnipaque-35 0 intravenous contrast. The dose-length product was 217.01 mGy-cm. Maximum intensity projection 3D-re constructions of the aorta and other arteries were constructed by the technologist on a separate work station. COMPARISON: None. FINDINGS: No filling defect is identified within the main or proximal pulmonary arteries. The thoracic aorta is nonaneurysmal, and otherwise unremarkable. No dissection is appreciated. The heart is of normal size, without pericardial effusion. Calcified granuloma within the right lower lobe. Azygous fissure is incidentally noted. Reflux of intravenous contrast is present within the hepatic veins suggesting right heart dysfunction . IMPRESSION: No pulmonary embolus. No aortic dissection. The lungs are clear. Reviewed, dictated and finalized at location A. E EXAMINER
--- NOTE | ~2024-10-08 | XR_ITS ---
EXAMINATION: XR chest 2V 10/08/2024 10:56 INDICATION: Chest pain PROCEDURE: 2 view chest COMPARISON: 12/31/2021 FINDINGS: The lungs are clear. The cardiomediastinal silhouette is within normal limits. There are no pleural effusions. There is no pneumothorax suspected. There is a healed right seventh rib fract ure laterally. There are calcified granulomas of the lungs. IMPRESSION: 1: NO ACUTE CARDIOPULMONARY DISEASE. Reviewed, dictated and finalized at location A. STAPLER
--- NOTE | 2024-10-08 09:55 | ECG_ITS ---
Test Date: 2024-10-08 09:59:09 Measurements Intervals Butler Rate: 65 P: 78 MD: 137 QRS: 20 QRSD: 108 T: 50 QT: 408 QTc: 425 Interpretive Statements SINUS RHYTHM POSSIBLE LEFT ATRIAL ENLARGEMENT [-0.1mV P WAVE IN V1/V2] POSSIBLE LEFT VENTRICULAR HYPERTROPHY [VOLTAGE CRITERIA PLUS LAE OR QRS WIDENING] No previous ECG available for comparison Electronically Signed On 10-08-2024 14:37:53 DIRECTOR OF PROPERTY MANAGEMENT by Nichole Tapia M.D.
--- OUTSIDE RECORDS SUMMARY | 2024-10-08 10:07 | XMS_ITS | Clinical Summary ---
Author Organization [facility] Address [address] [place] [address] Care Team Providers Care Lifeguard Name Role Phone Beto Rivers DO Primary Care Provider [phone] Source Comments [facility],non-owned Affiliates and Associated Physician Practices is amultiple site organization consisting of ambulatory clinics and hospital sitesin [place], [place], [place] and [place]. This disclosure is being madepursuant to the Care Everywhere program and may not contain all information available regarding this patient. Last updated 18.[facility] Social History Tobacco Use Types Packs/Day Years Used Date Smoking Tobacco: Never Assessed Sex and Gender Information Value Date Recorded Sex Assigned at Not on file Gender Identity Not on file Sexual Orientation Not on file Last Filed Vital Signs Vital Sign Reading Time Taken Comments Blood Pressure 127/83 10/29/2017 9:01 AM ELDERLY COMPANION Pulse 74 10/29/2017 9:01 AM ELDERLY COMPANION Temperature 36.7 ??C (98 ??F) 10/01/2017 8:44 AM ELDERLY COMPANION Respiratory Rate - - Oxygen Saturation 97% 10/29/2017 9:01 AM ELDERLY COMPANION Inhaled Oxygen Concentration - - Weight 74.8 kg (165 lb) 10/29/2017 9:01 AM ELDERLY COMPANION Height 182.9 cm (6') 10/29/2017 9:01 AM ELDERLY COMPANION Body Mass Index 22.38 10/29/2017 9:01 AM ELDERLY COMPANION Plan of Treatment Health Maintenance Due Date Last Done Comments OGLIOR (AGES 45-75) - COL ON CA SCREENING 1964 COLON MONITORING 1964 COLONOSCOPY - COLON CA SCREENING 1964 CT COLONOGRAPHY - COLON CA SCREENING 1964 Colorectal Cancer Screening 1964 FIT - COLON CA SCREENING 1964 FLEX SIG - COLON CA SCREENING 1964 LIPID TESTING 1964 HIV SCREENING 1979 HEPATITIS C SCREENING 08/27/1982 DTAP/TDAP/TD VACCINES (1 - Tdap) 1983 PNEUMOCOCCAL VACCINE 50+ (1 of 1 - PCV) 2014 ZOSTER VACCINE (1 of 2) 2014 COVID-19 VACCINE (1 - 2023-2 5 season) 2024 INFLUENZA VACCINE (#1) 2024 DEPRESSION SCREENING 09/08/2024 Respiratory Syncytial Virus (RSV) Vaccine Pt: or over 60 yrs (1 - 1-dose 75+ series) 2039 HEPATITIS B VACCINE Aged Out No longe r eligible based on patient's age to complete this topic HIB VACCINE Aged Out No longer eligi ble based on patient's age to complete this topic HPV VACCINE Aged Out No longer eligi ble based on patient's age to complete this topic MENINGOCOCCAL (Group B) VACCINE Aged Out No longer eligible based on patient's age to complete this topic MENINGOCOCCAL VACCINE Aged Out No oren vignesh eligible based on patient's age to complete this topic PNEUMOCOCCAL VACCINE Aged Out No long er eligible based on patient's age to complete this topic Care Teams Lifeguard Relationship Specialty Start Date End Date Beto Rivers DO PCP - General 07/22/18
--- OUTSIDE RECORDS SUMMARY | 2024-10-08 10:07 | XMS_ITS | Continuity of Care Document ---
Author Organization [facility] Address [address] [place] [address] Phone Care Team Providers Care Store Facility Technician Name Role Phone Unavailable Unavailable Unavailable Allergies, Adverse Reactions, Alerts Substance Reaction Status Criticality No Known allergies Medications Medication Instructions Dosage Effective Dates (start - stop) Status Comments Bactrim DS 800 mg-160 mg Tab take 1 tablet by oral route every 12 hours 1.00 tablet - Active Procedures Procedure Date OFFICE/OUTPATIENT VISIT, [facility] Advance Directives Directive Yes / No Effective Date File Name Resuscitation Not Answered N/A N/A Life Support Not Answered N/A N/A Intubation Not Answered N/A N/A Antibiotics Not Answered N/A N/A IV Fluid Support Not Answered N/A N/A Tube Feed Not Answered N/A N/A Other Directive N/A N/A WARNING:The information contained in this section is historical and is provided for information only and does not constitute a legal document or any assurance that the information is still accurate. Please verify the information with the feliz of the legal document before using it for clinical purposes. Encounters Encounter Description Practice Location Reason(s) For Visit Diagnoses Date Provider Providers Copied on Encounter OFFICE/OUTPAT IENT VISIT, [facility] , [address], [place], [place], [id number], [place] tel:[phone] Tsering Middleton Rommel swollen face (chief complaint) Sialoadenitis 1 No Information Family History Family Member Type Diagnosis Age At Onset No Information Payers Payer name Insurance type Covered republican ID Authoriza tion(s) No Information Social History Type Description Quantity Date Captured Comments Alcohol Use Details Unknown Caffeine Use Details Unknown Tobacco Use Status No Information Smoking Status No Information Sex Male Vital Signs Date / Time: Height Weight BMI Pulse Rate Blood Pressure Temperature Respiratory Rate Body Surface Area Head Circumference Head Circ. Percentile Wt./John. Percentile BMI percentile Pulse Ox Inhaled Ox 3:25 PM 72.00 in 158.00 lbs 21.4 3 kg/m eter (2) 75 /min 98/69 mm[Hg] 97.10 F 18 /min Chief Complaint And Reason For Visit From encounter dated 09/04/2011 13:40'. swollen face (chief complaint) Reason For Referral Reason For Referral No Information History Of Present Illness Encounter Date Complaint History Of Prese nt Illness No Information Functional Status Date Functional Assessmen t Pain Score 7/10 Instructions Date Instruction Additional Infor mation No Information Assessments Type Assessment Date No Information Patient Care Teams Name Effective Dates (start - stop) Status Members No Information
--- OUTSIDE RECORDS SUMMARY | 2024-10-08 10:07 | XMS_ITS | Data Portability ---
Author Organization [facility] Address [address] [place] [address] Care Team Providers Care Booth Usher Name Role Phone NOELLE NG Primary Care Provider Unavailab le Assessment No assessment recorded. Plan of Treatment Reminders Order Date Submit Date Provider Last Modified By Organization Details Last Modified Time Details Appointments ANY 15 2024 10:15A M NELLY Yang Not available Not available Not available NEW PATIENT 60 2024 09:30A M Ferny gonsalves NP Not available Not available Not available Lab urinalysi s, dipstick 2017 018 [facility] In-Office Order, Internal Use Only DO Not Attach Compendium DO Not Attach Compendium, Do Not Delete/merge, [id number] 05/29/2018 16:47:24 CT + NG RNA, PCR, unspecifi ed specimen 2017 018 [facility], [address] [place] [address], [address], [place], [address], 06/01/2018 20:08:40 TSH + free T4, serum 2023 024 [facility], [address], [place], [address], 03/19/2024 15:33:25 CBC w/ auto diff 2023 024 [facility], [address], [place], [address], 03/15/2024 16:37:19 CMP, serum or plasma 2023 024 [facility], [address], [place], [address], 03/19/2024 15:33:24 lipid panel, serum 2023 024 [facility], [address], [place], [address], 03/19/2024 15:33:24 PSA, total, serum or plasma 2023 024 [facility], [address], [place], [address], 03/19/2024 15:33:25 HbA1c (hemoglob in A1c), blood 2023 024 [facility], [address], [place], [address], 03/19/2024 15:33:24 Referral None recorded. Procedures None recorded. Surgeries None recorded. Imaging XR, esophagra m 2023 024 [facility], [address], [place], [address], 02/25/2024 17:46:58 Medication Orders bupropion HCl SR 150 mg tablet,12 hr sustained -release 2017 018 [facility] #[id number], [address] [place], [place], [id number], 12/04/2023 14:24:53 prednison e 20 mg tablet 2018 019 [id number], [address], [place], [id number], 12/04/2023 14:13:24 triamcino lone acetonide 0.1 % topical cream 2018 019 [facility] #[id number], [address], [place], [id number], 02/04/2024 15:31:35 quetiapin e 25 mg tablet 2023 025 [facility] [address] [place], [address], 09/28/2024 11:49:31 sertralin e 50 mg tablet 2023 024 [facility] [address] [place], [address], 02/04/2024 16:03:20 bupropion HCl SR 200 mg tablet,12 hr sustained -release 2023 024 [facility] [address] [place], [address], 09/28/2024 11:23:53 lisinopri l 10 mg tablet 2023 024 [facility] [address] [place], [address], 09/28/2024 11:23:05 Patient TargetsNo targets recorded. Patient Instructions Encounter Date Encounter Id Patient Instructions Last Modified By Organization Details Last Modified Time 05/29/2018 [id number] peptic ulcer disease: care instructions graciela Not available 05/29/2018 15:37:06 bladder training : care instructions graciela Not available 05/29/2018 15:37:06 -Getting records from Pt's last pcm, Dr Porsha Rivers and [facility], where pt recently went to ER. I was present and available in the Family Medicine clinic to discuss this patients care during the appointment. I agree with the residents assessment and plan as documented. JESUS melton Not available 06/03/2018 14:58:10 11/12/2018 [id number] I certify that I was present and available in the family medicine clinic for discussion of this patient. I have reviewed the resident's note and agree with the stated assessment and treatment plan. DESIRE [email or web address] Not available 11/18/2018 23:30:07 Reason for Referral Psychiatrist Referral for Mi xed anxiety and depressive disorder establish care. really needs specialist of mental health med management. and restructure. Referring Physician: Noelle Ng, Internal Medicine, Encounter Date: 09/28/2024 Results Created Date Observation Date Name Description Value Unit Range Abnormal Flag Note LastModifiedBy Organization Detail LastModifiedTime 05/29/20 18 06/01/2018 CT + NG RNA, PCR, unspe cifie d speci men chlamydia trachomatis, MARITZA Negati ve negati ve Not Available [facility] ([facility]) [address] [place], [address], 06/01/2018 20:08:40 05/29/20 18 06/01/2018 CT + NG RNA, PCR, unspe cifie d speci men neisseria gonorrhoeae, MARITZA Negati ve negati ve Not Available [facility] ([facility]) [address] [facility], [place], [address], 06/01/2018 20:08:40 05/29/20 18 05/29/2018 urina lysis , dipst ick Color Yellow Not Available In-Office Order Internal Use Only DO Not Attach Compendium DO Not Attach Compendium, Do Not Delete/merge, [id number] 05/29/2018 15:36:58 05/29/20 18 05/29/2018 urina lysis , dipst ick Appearance Slight ly Cloudy Not Available In-Office Order Internal Use Only DO Not Attach Compendium DO Not Attach Compendium, Do Not Delete/merge, [id number] 05/29/2018 15:36:58 05/29/20 18 05/29/2018 urina lysis , dipst ick Glucose Negati ve Not Available In-Office Order Internal Use Only DO Not Attach Compendium DO Not Attach Compendium, Do Not Delete/merge, [id number] 05/29/2018 15:36:58 05/29/20 18 05/29/2018 urina lysis , dipst ick Bilirubin Negati ve Not Available In-Office Order Internal Use Only DO Not Attach Compendium DO Not Attach Compendium, Do Not Delete/merge, 05/29/2018 15:36:58 05/29/20 18 05/29/2018 urina lysis , dipst ick Ketone Negati ve Not Available In-Office Order Internal Use Only DO Not Attach Compendium DO Not Attach Compendium, Do Not Delete/merge, 05/29/2018 15:36:58 05/29/20 18 05/29/2018 urina lysis , dipst ick Specific [place] 1.020 Not Available In-Off ice Order Internal Use Only DO Not Attach Compendium DO Not Attach Compendium, Do Not Delete/merge, 05/29/2018 15:36:58 05/29/20 18 05/29/2018 urina lysis , dipst ick Blood Negati ve Not Available In-Office Order Internal Use Only DO Not Attach Compendium DO Not Attach Compendium, Do Not Delete/merge, 05/29/2018 15:36:58 05/29/20 18 05/29/2018 urina lysis , dipst ick pH 6.0 Not Available In-Office Order Internal Use Only DO Not Attach Compendium DO Not Attach Compendium, Do Not Delete/merge, 05/29/2018 15:36:58 05/29/20 18 05/29/2018 urina lysis , dipst ick Protein Negati ve Not Available In-Office Order Internal Use Only DO Not Attach Compendium DO Not Attach Compendium, Do Not Delete/merge, 05/29/2018 15:36:58 05/29/20 18 05/29/2018 urina lysis , dipst ick Urobilinogen .2 Not Available In-Of fice Order Internal Use Only DO Not Attach Compendium DO Not Attach Compendium, Do Not Delete/merge, 05/29/2018 15:36:58 05/29/20 18 05/29/2018 urina lysis , dipst ick Nitrite negati ve Not Available In-Office Order Internal Use Only DO Not Attach Compendium DO Not Attach Compendium, Do Not Delete/merge, 05/29/2018 15:36:58 05/29/20 18 05/29/2018 urina lysis , dipst ick Leukocytes Negati ve Not Available In-Office Order Internal Use Only DO Not Attach Compendium DO Not Attach Compendium, Do Not Delete/merge, [id number] 05/29/2018 15:36:58 02/25/20 24 02/25/2024 XR, william meier No observ ation record ed. [place] [address], [place], [address], 02/27/2024 15:54:26 Result Notes None recorded. Problems Name Problem SNOMED Code Status Onset Date Resolution Date Notes Provider Name and Address Organization Details Recorded Time Dysuria 12992120 Active Dary [place], [place] [facility] 8 15:25:19 Urinary incontinenc e 040830394 Active 2017 D[place] [facility] 15:27:25 Abdominal pain 15300130 Active 2017 D[place] [facility] 15:30:17 Cramp in lower limb 180590905 Active 2017 [place] [facility] 15:31:34 Dysphagia 00355627 Active 2017 [place] [facility] 15:39:26 Hypertensiv e disorder 68705476 Completed 201705/29/2018 [place] [facility] 16:48:07 Essential hypertensio n 87496714 Active 2017 [place] [facility] 16:48:13 Tobacco user 031534312 Active [place] [facility] 16:51:13 Dyssomnia 29934204 Active 2023 NELLY Yang Attn: Elma umana,[address] [facility], [place], [address], [place] - [facility] 4 10:47:54 Intermitten t dysphagia 43274145 Active 2023 NELLY Yang Attn: Accountin g,[address] [facility], [place], [address], [place] - [facility] 4 10:47:56 Benign essential hypertensio n 1331023 Active 2023 NELLY Yagn Attn: Accountin g,[address] [facility], [place], [address], [place] [facility] 4 10:47:57 Mixed anxiety and depressive disorder 769833263 Active 2023 NELLY Yang Attn: Accountin g,[address] [facility], [place], [address], [place] [facility] 4 10:47:59 Prostate specific antigen above reference range 823396326 Active 2024 NELLY Yang Attn: Accountin g,[address] [facility], [place], [address], [place] [facility] 5 11:51:33 Anemia 410720162 Active 2024 NELLY Yang Attn: Accountin g,[address] [facility], [place], [address], [place] [facility] 5 11:51:34 Long-term drug therapy Active 2024 NELLY Yang Attn: Accountin g,[address] [facility], [place], [address], [place] [facility] 5 11:51:39 Body mass index less than 20 657667416 Active 2024 NELLY Yang Attn: Accountin g,[address] [facility], [place], [address], [place] [facility] 5 11:51:52 Problem Notes None recorded. Procedures Surgical History Date Name Laterality Status Provider Name and Address Organization Details Recorded Time 10/09/19 24 Cholecystectomy completed Eri Resendiz [place] [facility] 02/04/2024 16:06:38 04/03/20 23 colonoscopy completed Nadine Espino LPN [place] [facility] 04/01/2024 09:50:38 09/08/19 14 Hernia Repair completed Dary Le [place] [facility] 05/29/2018 14:39:31 Back Surgery completed Eri Resendiz [place] - [facility] 02/04/2024 16:06:29 Imaging Results Imaging Date Name Status LastModified by Organiz ation Details LastModified Time 02/25/2024 XR, esophagram completed [facility] [address], [place], [address], 02/27/2024 15:54:26 Procedure Notes None recorded. Medical Equipment None Reported. Allergies No known drug allergies Medications Name Sig Start Date Stop Date Status Note LastModified by Organization Details LastModified Time quetiapine 25 mg tablet Take 1 tablet every day by oral route for 30 days. 09/28 completed Not Available Not Available Not Available amoxicillin 500 mg capsule 05/29 completed Not Available Not Available Not Available bupropion HCl SR 150 mg tablet,12 hr sustained-r elease TAKE 2 TABLETS BY MOUTH EVERY DAY 12/03 completed Not Available Not Available Not Available trazodone 50 mg tablet TAKE 1 TABLET BY MOUTH NEEDED AT BEDTIME FOR 30 DAYS 02/03 completed Not Available Not Available Not Available ibuprofen 800 mg tablet 05/29 completed Not Available Not Available Not Available hydrocodone 5 mg-acetamin ophen 325 mg tablet 05/29 completed Not Available Not Available Not Available famotidine 40 mg tablet TAKE 1 TABLET BY MOUTH TWICE DAILY WITH MEALS active Not Available Not Available No t Available methylpheni date 5 mg tablet 05/29 completed Not Available Not Available Not Available prednisone 20 mg tablet Day 1-7: Take three tablets in am with foodDay 8-14: Take two tablets in am with foodDay 15-21: Take one tablet in am with food 12/03 completed Not Available Not Available Not Available hydroxyzine pamoate 50 mg capsule TAKE 1 CAPSULE BY MOUTH NEEDED AT BEDTIME 02/03 completed Not Available Not Available Not Available hydroxyzine HCl 50 mg tablet Take 1 tablet every day by oral route at bedtime. 2024 active Not Available Not Available Not Avai lable peg-electro lyte solution 420 gram oral solution DRINK 1/2 OF THE SOLUTION AT 5PM ON 04/02 AND THE OTHER 1/2 AT 5AM ON 04/03 completed Not Available Not Available Not Available triamcinolo ne acetonide 0.1 % topical cream APPLY A THIN LAYER TO THE AFFECTED AREA(S) BY TOPICAL ROUTE 2 TIMES PER DAY 02/03 completed Not Available Not Available Not Available pantoprazol e 40 mg tablet,leslie yed release 02/03 completed Not Available Not Available Not Available lisinopril 10 mg tablet Take 1 tablet every day by oral route. 2024 active Not Available Not Available Not Avai lable sertraline 50 mg tablet Take 1.5 tablets every day by oral route. 2024 active Not Available Not Available Not Avai lable hydroxyzine pamoate 25 mg capsule TAKE 1 CAPSULE BY MOUTH NEEDED AT BEDTIME FOR 30 DAYS 02/03 completed Not Available Not Available Not Available bupropion HCl SR 200 mg tablet,12 hr sustained-r elease Take 1 tablet twice a day by oral route. 2024 active Not Available Not Available Not Avai lable nicotine (polacrilex ) 2 mg buccal lozenge 05/29 completed Not Available Not Available Not Available Vitals Date Recorded Body height Provider Name an d Address Organization Details Last Updated DateTime 05/29/2018 179.07 cm Neel Knott [facility] 05/29/20 18 13:52:35 Date Recorded Body mass index (BMI) Body weight Provider Name and Address Organization Details Last Updated DateTime 05/29/2018 21.1 kg/m2 89013.06 g Neel Knott [facility] 05/29/2018 13:52:41 Date Recorded Heart rate Provider Name an d Address Organization Details Last Updated DateTime 05/29/2018 57 /min Neel Knott [facility] 05/29/20 18 13:55:38 Date Recorded Oxygen saturation Oxygen saturation in Arterial blood by Pulse oximetry Provider Name and Address Organization Details Last Updated DateTime 05/29/2018 98 % 98 % Neel Knott [facility] 05/29/2018 13:55:41 Date Recorded Body temperature Provider Name a nd Address Organization Details Last Updated DateTime 05/29/2018 97.7 [degF] Neel Knott CMA [facility] 018 13:55:45 Date Recorded Respiratory rate Provider Name a nd Address Organization Details Last Updated DateTime 05/29/2018 16 /min Neel Knott CMA [facility] 05/29/20 18 13:55:47 Date Recorded Body height Provider Name an d Address Organization Details Last Updated DateTime 11/12/2018 179.07 cm [place] [facility] 11/12 15:40:55 Date Recorded Body mass index (BMI) Body weight Provider Name and Address Organization Details Last Updated DateTime 11/12/2018 21.5 kg/m2 71904.04 g [place] [facility] 11/12/2018 15:40:59 Date Recorded Heart rate Provider Name an d Address Organization Details Last Updated DateTime 11/12/2018 79 /min [place] [facility] 11/12 15:41:38 Date Recorded Oxygen saturation Oxygen saturation in Arterial blood by Pulse oximetry Provider Name and Address Organization Details Last Updated DateTime 11/12/2018 98 % 98 % [place] [facility] 11/12/2018 15:41:39 Date Recorded Body temperature Provider Name a nd Address Organization Details Last Updated DateTime 11/12/2018 98 [degF] [place] [facility] 11/12/2018 15:44:16 Date Recorded Body height Provider Name an d Address Organization Details Last Updated DateTime 02/04/2024 179.07 cm Eri Resendiz [place] [facility] 2023 15:24:30 Date Recorded Body mass index (BMI) Body weight Provider Name and Address Organization Details Last Updated DateTime 02/04/2024 18.8 kg/m2 00937.14 g Eri Resendiz [place] [facility] 02/04/2024 15:34:27 Date Recorded Respiratory rate Provider Name a nd Address Organization Details Last Updated DateTime 02/04/2024 18 /min Eri Resendiz [place] [facility] 02/04/2024 15:34:29 Date Recorded Oxygen saturation Oxygen saturation in Arterial blood by Pulse oximetry Provider Name and Address Organization Details Last Updated DateTime 02/04/2024 97 % 97 % Eri Resendiz [place] [facility] 02/04/2024 15:34:49 Date Recorded Heart rate Provider Name an d Address Organization Details Last Updated DateTime 02/04/2024 73 /min Eri Resendiz [place] [facility] 2023 15:34:50 Date Recorded Body height Provider Name an d Address Organization Details Last Updated DateTime 09/28/2024 179.07 cm Eri Resendiz [place] [facility] 2024 11:19:57 Date Recorded Body mass index (BMI) Body weight Provider Name and Address Organization Details Last Updated DateTime 09/28/2024 19 kg/m2 93145.38 g Eri Resendiz [place] [facility] 09/28/2024 11:21:27 Date Recorded Oxygen saturation Oxygen saturation in Arterial blood by Pulse oximetry Provider Name and Address Organization Details Last Updated DateTime 09/28/2024 98 % 98 % Eri Resendiz [place] [facility] 09/28/2024 11:25:52 Date Recorded Heart rate Provider Name an d Address Organization Details Last Updated DateTime 09/28/2024 70 /min Eri Resendiz [place] [facility] 2024 11:26:58 Date Recorded Respiratory rate Provider Name a nd Address Organization Details Last Updated DateTime 09/28/2024 18 /min NELLY Yang Attn: Accounting,[address] [place], [address], [facility] 09/28/2024 11:51:29 Date Recorded Systolic blood pressure Diastolic blood pressure Provider Name and Address Organization Details Last Updated DateTime 05/29/2018 132 mm[Hg] 88 mm[Hg] Neel [place]nott C[place] [facility] 05/29/2018 13:56:37 Date Recorded Systolic blood pressure Diastolic blood pressure Provider Name and Address Organization Details Last Updated DateTime 11/12/2018 130 mm[Hg] 90 mm[Hg] [place] [facility] 11/12/2018 15:44:14 Date Recorded Systolic blood pressure Diastolic blood pressure Provider Name and Address Organization Details Last Updated DateTime 02/04/2024 142 mm[Hg] 98 mm[Hg] Eri Resendiz MA [facility] 02/04/2024 15:35:54 Date Recorded Systolic blood pressure Diastolic blood pressure Provider Name and Address Organization Details Last Updated DateTime 02/04/2024 140 mm[Hg] 80 mm[Hg] NELLY Yang Attn: Accounting,[address] [place], [address], [facility] 02/04/2024 15:56:36 Date Recorded Systolic blood pressure Diastolic blood pressure Provider Name and Address Organization Details Last Updated DateTime 09/28/2024 138 mm[Hg] 82 mm[Hg] Eri Resendiz MA [facility] 09/28/2024 11:27:02 Date Recorded Systolic blood pressure Diastolic blood pressure Provider Name and Address Organization Details Last Updated DateTime 09/28/2024 130 mm[Hg] 84 mm[Hg] NELLY Yang Attn: Accounting[address] [place], [address], [facility] 09/28/2024 11:51:27 Social History Question Answer Notes LastModified by Organizat ion Details LastModified Time Tobacco Smoking Status Current Every Day Smoker DENNIS Chris, [facility] 05/29/2018 13:54:25 Do You Have An Advance Directive? No Information not available 02/04/2024 What Is Your Level Of Alcohol Consumption? None Information not available 02/04/2024 Are You Blind Or Do You Have Difficulty Seeing? No Information not available 02/04/2024 What Is Your Level Of Caffeine Consumption? Moderate [employer] Drink Information not available 02/04/2024 In The 14 Days Before Symptom Onset, Have You Had Close Contact With A Laboratory-confir med COVID-19 While That Case Was Ill? No Information not available 02/04/2024 In The 14 Days Before Symptom Onset, Have You Had Close Contact With A Person Who Is Under Investigation For COVID-19 While That Person Was Ill? No Information not available 02/04/2024 Have You Been To An Area Known To Be High Risk For COVID-19? No Information not available 02/04/2024 Are You Currently Employed? Yes Information not available 09/28/2024 Are You Deaf Or Do You Have Serious Difficulty Hearing? No Information not available 02/04/2024 What Type Of Diet Are You Following? REGULAR Information not available 02/04/2024 Are There Any Guns Present In Your Home? No Information not available 02/04/2024 What Was The Date Of Your Most Recent Tobacco Screening? 09/28/2024 Information not available 09/28/2024 Do You Use Your Seat Belt Or Car Seat Routinely? Yes Information not available 02/04/2024 Do You Have Smoke And Carbon Monoxide Detectors In Your Home? Yes Information not available 02/04/2024 How Much Tobacco Do You Smoke? 0.25 PPD 2 A Day Information not available 09/28/2024 Do You Use Any Illicit Or Recreational Drugs? No Information not available 02/04/2024 Do You Use Sunscreen Routinely? No Information not available 02/04/2024 Has Tobacco Cessation Counseling Been Provided? Yes Information not available 02/04/2024 On What Date Was Tobacco Cessation Counseling Provided? 09/28/2024 Information not available 09/28/2024 How Many Years Have You Smoked Tobacco? 38 tshopema Information not available 05/29/2018 Do You Or Have You Ever Used Any Other Forms Of Tobacco Or Nicotine? No Information not available 02/04/2024 Sex: Male Functional Status Question Answer Note LastModified by Organization D etails LastModified Time Are you able to care for yourself? Yes Information n ot available 02/04/2024 What is your exercise level? None Information not available 02/04/2024 Mental Status None recorded. Family History Relationship Description Onset Age of this Age Resolved Age Notes LastModified by Organization Details LastModified Time Sister Migraine [email or web address] Not availabl e 02/04/2024 16:07:05 Medical History Condition Response Coronary Artery Disease N Other N Atrial Fibrillation N High Blood Pressure Y Thyroid Problems N Kidney or Bladder Problems N Depression N COPD N Blood Clots N GI Problems N Skin Problems N Anemia N Heart Attack (MD) N Diabetes N Anxiety Disorder N Muscle, Joint, or Bone Problems N Seizures/Epilepsy N Acid Reflux (GERD) N Cancer N Stroke N Allergies N Asthma N High Cholesterol N Hepatitis N Liver Disease N Headaches N Osteoporosis N Heart Failure N Past Encounters Encounter ID Performer Location Encounter Start Date Encounter Closed Date Diagnosis/Indication Diagnosis SNOMED-CT Code Diagnosis ICD10 Code Diagnosis Note [id number] Laurie Bernabe MD [facility] [address] [facility] [address] [place] [address] 05/29/2018 13:00:43 06/02/2018 09:48:42 Dysuria 40871539 R30.0 Burning sensation when urinating. UA WNL. DDX STI. Urinary incontinence 165 135285 R32 Pt waits until he suddenly has to urinate to go to the bathroom, sometimes loses control of his bladder for 1-2 months. Assoc dysuria and nocturia. Likely urge incontinen ce.-Advise d pt to: schedule bathroom breaks every 1-2 hr whether he has to go or not, reduce caffeine intake, limit beverages 2 hours before bed and urinate before sleeping-P rovided handout Abdominal pain 09213757 R10.9 Diffuse abdominal pain alleviated w/ food, pantoprazo le helps a little. Assoc dark stool and constipati on, unintentio nal 20lb weight loss in last couple months. Smokes cigarettes . Epigastric and RLQ tenderness on PE. DDx ulcer and constipati on.-Contin ue Pantoprazo le. Pt to call if no improvemen t-Begin OTC stool softener PRN-Counse lled on smoking cessation Cramp in lower limb 1176 42563 R25.2 B/l LE cramps like 2/2 standing on feet all day.-Provi ded handout on leg stretches Dysphagia 37405046 R13.1 0 Food getting stuck in his throat and coming back up while swallowing for 4 months, drinking water w/ food helps.-Ref erral for GI for swallow study or endoscopy Essential hypertension 80207459 I10 132/88 today. Has been on lisinopril 10mg but stopped in mid april (1 month ago).-F/u in 6 months, restart lisinopril if elevated Tobacco user [id number] Z 72.0 1/2 ppd, 39 pack year hx. Reports Wellbutrin has worked in the past.-Coun selled on tobacco use risks. Pt understand s. [id number] [facility] [address] [facility] [facility] [address] [place] [address] 11/12/2018 15:18:17 11/16/2018 09:50:03 Contact dermatitis [id number] L25.9 Allergic contact dermatitis since starting new job wearing nitrile gloves. Erythemato us excoriated rash on palm and dorsal hands and wrist and elbows bilaterall y.- stop wearing nitrile gloves, note provided to work- steroid 60-40-20, 3 wk taper- kenalog cream- fu one week [id number] NELLY Yang [facility] [employer] [address] [place] [address] 02/04/2024 15:14:27 04/26/2024 19:46:32 Mixed anxiety and depressive disorder [id number] F41.8 refill on sertraline 75mg total daily. refill on wellbutrin SR 200mg bid. Benign ess ential hypertension 0389494 I10 refill on lisinopril 10mg daily. Dyssomnia 29463543 G47.9 trial of quetiapine 25mg qhs for sleep and mood combinatio n. Long-term drug therapy [id number] Z79.899 routine labs are due Intermitte nt dysphagia 78809747 R13.19 refer for esophagram screening xray Cholesterol screening 27 5290047 Z13.220 fasting lipids due Diabetes m ellitus screening 696629285 Z13.1 a1c screening due Screening for malignant neoplasm of prostate 292488784 Z12.5 annual psa due Thyroid di sorder screening 999246969 Z13.29 routine thyroid panel due [id number] NELLY Yang [facility] [employer] [address] [place] [address] 09/28/2024 11:14:03 09/28/2024 15:03:39 Mixed anxiety and depressive disorder [id number] F41.8 on sertraline 75mg total daily. refill on wellbutrin SR 200mg bid. Benign ess ential hypertension 0173564 I10 on lisinopril 10mg daily. Intermitte nt dysphagia 94380772 R13.19 esophagram summer 2023 was normal. EGD was still ordered but he lost his insurance and did not f/u to schedule this. Dyssomnia 97394908 G47.9 Long-term drug therapy 309373739 Z79.899 Prostate s pecific antigen above reference range 963674760 R97.20 pt did not complete additional UA and psa labs that were ordered in f/u for mildly elevated PSA. calls were made to remind and also letter mailed. He must go to [facility] to complete. Anemia 261186367 D64.9 pt did not complete additional labs that were ordered in the summer 2023. Body mass index less than 20 [id number] Z68.1 Health Concerns Section Related Observation LastModified by Organization Detai ls LastModified Time None Recorded Concern Status LastModified by Organization Details LastModified Time None Recorded Advance Directives Directive N: Payers Encounter Date Sequence Insurance Name Policy Number Policy Stephens Covered Member ID Stephens Member ID Guarantor Name 05/29/2018 1 [employer] (MEDICAID HMO) Damon Raymundo [id number] Damon Raymundo 02/04/2024 2 [place] [facility] Damon Raymundo [id number] Damon Raymundo 02/04/2024 1 [facility] [id number] Damon Raymundo [id number] Damon Raymundo Notes Date Note Type Note Provider Name and Address Organization Details Recorded Time 05/29/20 18 text/htm l 52yo M w/ a PMH of HTN coming in to urinary incontinence, ER f/u for abdominal pain, and to establish care.ER: Went to ER on 05/27 for 6/10 abdominal pain, worsening for 4 days and dark stools. Alleviated w/ GI cocktail. Negative FOBT. Discharged w/ pantoprazole 40mg QD. Also c/o dysuria--neg UA. abdominal pain: diffuse abdominal pain but more so on R side described as pressure sensation but sometimes sharp. Intermittent. Alleviated w/ food, pantoprazole helps a little. Currently 4/10. Nonradiating. Reports dark stool since onset. Last BM was yesterday, 05/28, and hard, pt was straining to go. C/o: gas, unintentional 20lb weight loss in last couple months. Also reports food getting stuck in his throat and coming back up while swallowing for 4 months, drinking water w/ food helps. Has not seen a GI for this. Denies: bright red blood in his stool, nausea, vomiting, diarrhea, previous episodes. urinary incontinence: 1-2 months. Pt usually waits until he has the sudden urge to go to urinate. C/o urgency, urinary incontinence w/ anxiety, on his feet and moving a lot. Wakes up 2x/night to urinate. C/o dysuria. Denies: feeling like he still has to go after urinating, trouble initiating stream, blood in urine. Leg cramps: muscle cramps in b/l calves and soles of feet. Pt on feet all day for work. Social: Drinks 1 cola/day, no coffee. 1/2ppd since 14yo, 19 pack year hx, wants to quit smoking and Wellbutrin worked before. Denies sexually activity, Etoh use, rec drug use. 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 Lives w/ roommate. 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 Itchy and painful. Does not remember any abnormal exposure i.e new chemicals or plant exposures (addended as we now know nitrile gloves). Work as a learning engineer whom wears gloves. Rash on palm and dorsal surface with spread to wrists and elbows bilaterally. Denies any recent f/c/cp/sob/n/v/changes in bowel or bladder habits/changes in vision/dizziness/lightheadedne ss/unexplained weight loss Mckenna Montes DO Attn: Accounting,[address] [facility], [place], [address], [facility] 11/18/2018 23:30:10 02/04/20 24 text/htm l Anxiety/DepressionReported bypatient.Notes:pt has depression and anxiety with long hx of mental health diagnosis.DysphagiaReported bypatient.Location:throat Quality:tightness;sticking Severity:mild Duration:intermittent; present for 1-6 months Onset/Timing:gradual onset Context:no specific foods cause problems; no history of GERD Alleviating Factors:drinking liquids; clears on its own Aggravating Factors:eating fast;eating large volumes of food;specific foods Associated Symptoms:no chest pain; no weight loss; not spitting up blood; not spitting up coffee ground-like material; no anemia; no red blood in stool; no black/tarry stoolsHypertensionReported bypatient.Notes:pt is taking lisinopril 10mg daily.InsomniaReported bypatient.Notes:pt is waking up several times nightly still. hydroxyzine is not helping. pt has questions about adhd diagnosis from remote past psychiatry. he thinks he has it and wonders if he should be treated. NELLY Yang Attn: Accounting,[address] [facility], [place], [address], [facility] 04/15/2024 17:49:56
--- OUTSIDE RECORDS SUMMARY | 2024-10-08 10:07 | XMS_ITS | Referral Summary ---
Author Organization [facility] Address [address] [place] [address] Care Team Providers Care Cash Management Associate Name Role Phone Beto Rivers DO Primary Care Provider [phone] Source Comments [facility],non-owned Affiliates and Associated Physician Practices is amultiple site organization consisting of ambulatory clinics and hospital sitesin [place], [place], [place] and [place]. This disclosure is being madepursuant to the Care Everywhere program and may not contain all information available regarding this patient. Last updated 18.[facility] [employer] Social History Tobacco Use Types Packs/Day Years Used Date Smoking Tobacco: Never Assessed Sex and Gender Information Value Date Recorded Sex Assigned at Not on file Gender Identity Not on file Sexual Orientation Not on file Last Filed Vital Signs Vital Sign Reading Time Taken Comments Blood Pressure 127/83 10/29/2017 9:01 AM MUSIC PRODUCER Pulse 74 10/29/2017 9:01 AM MUSIC PRODUCER Temperature 36.7 ??C (98 ??F) 10/01/2017 8:44 AM MUSIC PRODUCER Respiratory Rate - - Oxygen Saturation 97% 10/29/2017 9:01 AM MUSIC PRODUCER Inhaled Oxygen Concentration - - Weight 74.8 kg (165 lb) 10/29/2017 9:01 AM MUSIC PRODUCER Height 182.9 cm (6') 10/29/2017 9:01 AM MUSIC PRODUCER Body Mass Index 22.38 10/29/2017 9:01 AM MUSIC PRODUCER Plan of Treatment Not on file Care Teams Cash Management Associate Relationship Specialty Start Date End Date Beto Rivers DO PCP - General 07/22/18
--- OUTSIDE RECORDS SUMMARY | 2024-10-08 10:07 | XMS_ITS | Patient Health Summary ---
Author Organization [facility] [employer] Address [address] [place] [address] Care Team Providers Care Radio News Anchor Name Role Phone Beto Rivers DO Primary Care Provider [phone] Note from [facility],non-owned Affiliates and Associated Physician Practices is amultiple site organization consisting of ambulatory clinics and hospital sitesin [place], [place], [place] and [place]. This disclosure is being madepursuant to the Care Everywhere program and may not contain all information available regarding this patient. Last updated 18.[facility] [employer] Social History Tobacco Use Types Packs/Day Years Used Date Smoking Tobacco: Never Assessed Sex and Gender Information Value Date Recorded Sex Assigned at Not on file Gender Identity Not on file Sexual Orientation Not on file Last Filed Vital Signs Vital Sign Reading Time Taken Comments Blood Pressure 127/83 10/29/2017 9:01 AM LEARNING SERVICES COORDINATOR Pulse 74 10/29/2017 9:01 AM LEARNING SERVICES COORDINATOR Temperature 36.7 ??C (98 ??F) 10/01/2017 8:44 AM LEARNING SERVICES COORDINATOR Respiratory Rate - - Oxygen Saturation 97% 10/29/2017 9:01 AM LEARNING SERVICES COORDINATOR Inhaled Oxygen Concentration - - Weight 74.8 kg (165 lb) 10/29/2017 9:01 AM LEARNING SERVICES COORDINATOR Height 182.9 cm (6') 10/29/2017 9:01 AM LEARNING SERVICES COORDINATOR Body Mass Index 22.38 10/29/2017 9:01 AM LEARNING SERVICES COORDINATOR Procedures * MRI CERVICAL SPINE WO CONTRAST(Performed 10/14/2017) * MRI LUMBAR SPINE WO CONTRAST(Performed 10/14/2017) * HEMOGLOBIN A1C(Performed 10/01/2017) * CULTURE AEROBIC(Performed 03/08/2017) * LAB HISTORICAL RESULTS-ONBASE(Performed 03/06/2017) Results * MRI CERVICAL SPINE WO CONTRAST (10/14/2017 4:05 PM LEARNING SERVICES COORDINATOR) Anatomical Region Laterality Modality Pelvis Other Impressions 10/14/2017 4:07 PM LEARNING SERVICES COORDINATOR IMPRESSION: 1. Multilevel degenerative disc disease in the cervical spine most pronounced at C5-6 where there is mild to moderate central canal stenosis. 2. Multilevel facet and uncovertebral joint osteoarthritis most pronounced at C5-6 where there is moderate to severe bilateral neural foraminal stenosis and at C6- 7 where there is moderate bilateral neural foraminal stenosis. No definite abnormal cord signal is identified in the cervical spine. This report was electronically signed by SHEA MARTINEZ M.D. ??on 10/14/2017 4:07 PM . Narrative 10/14/2017 4:07 PM LEARNING SERVICES COORDINATOR This is a summary report. The complete report is available in the patient's medical record. If you cannot access the medical record, please contact the sending organization for a detailed fax or copy. EXAMINATION: Magnetic resonance imaging (MRI) of the cervical spine without contrast HISTORY: abnormal mri in 2016. myelopathy, SS and NF stenosis. Symptoms worsened TECHNIQUE: MRI of the cervical spine was performed without contrast according to standard protocol. FINDINGS: No prior study is available for comparison at the time of this dictation. There is mild kyphosis centered at C5-6. Mild anterior wedging of the C5 vertebral body without STIR hyperintensity to suggest acute fracture. Modic endplate changes noted at C6-7. The craniocervical junction and visualized portions of the posterior fossa appear normal. The spinal cord appears normal. Multilevel degenerative disc disease is present. There is a T1 and T2 hyperintense lesion in the C7 vertebral body which does not completely suppress on STIR imaging and is indeterminate but may represent atypical hemangioma. No soft tissue abnormality is identified. Normal flow voids are identified in the vertebral arteries. C2-3: There is no disc bulge. There is no central canal stenosis. There is mild bilateral facet osteoarthritis. There is no uncovertebral joint osteoarthritis. There is no neural foraminal stenosis. C3-4: There is posterior disc osteophyte complex. There is no central canal stenosis. There is mild bilateral facet osteoarthritis. There is mild bilateral uncovertebral joint osteoarthritis. There is mild left neural foraminal stenosis. C4-5: There is a posterior disc osteophyte complex. There is no central canal stenosis. There is mild bilateral facet osteoarthritis. There is mild bilateral uncovertebral joint osteoarthritis. There is mild left neural foraminal stenosis. C5-6: There is a posterior disc osteophyte complex. There is mild to moderate central canal stenosis. There is mild bilateral facet osteoarthritis. There is severe bilateral uncovertebral joint osteoarthritis. There is moderate to severe bilateral neural foraminal stenosis. C6-7: There is posterior disc osteophyte complex. There is mild central canal stenosis. There is mild bilateral facet osteoarthritis. There is moderate bilateral uncovertebral joint osteoarthritis. There is moderate bilateral neural foraminal stenosis. C7-T1: There is no disc bulge. There is no central canal stenosis. There is no facet osteoarthritis. There is no uncovertebral joint osteoarthritis. There is no neural foraminal stenosis. Procedure Note Shea Martinez MD - 12/10/2017 This is a summary report. The complete report is available in thepatient's medical record. If you cannot access the medical record, pleasecontact the sending organization for a detailed fax or copy. EXAMINATION: Magnetic resonance imaging (MRI) of the cervical spinewithout contrast HISTORY: abnormal mri in 2016. myelopathy, SS and NF stenosis. Symptomsworsened TECHNIQUE: MRI of the cervical spine was performed without contrastaccording to standard protocol. FINDINGS: No prior study is available for comparison at the time of thisdictation. There is mild kyphosis centered at C5-6. Mild anterior wedging of the H0vdewmkvsw body without STIR hyperintensity to suggest acute fracture.Modic endplate changes noted at C6-7. The craniocervical junction andvisualized portions of the posterior fossa appear normal. The spinal cord appears normal. Multileveldegenerative disc disease is present. There is a T1 and T2 hyperintenselesion in the C7 vertebral body which does not completely suppress on STIRimaging and is indeterminate but may represent atypical hemangioma. No soft tissue abnormality is identified.Normal flow voids are identified in the vertebral arteries. C2-3: There is no disc bulge. There is no central canal stenosis. There ismild bilateral facet osteoarthritis. There is no uncovertebral jointosteoarthritis. There is no neural foraminal stenosis. C3-4: There is posterior disc osteophyte complex. There is no centralcanal stenosis. There is mild bilateral facet osteoarthritis. There ismild bilateral uncovertebral joint osteoarthritis. There is mild leftneural foraminal stenosis. C4-5: There is a posterior disc osteophyte complex. There is no centralcanal stenosis. There is mild bilateral facet osteoarthritis. There ismild bilateral uncovertebral joint osteoarthritis. There is mild leftneural foraminal stenosis. C5-6: There is a posterior disc osteophyte complex. There is mild tomoderate central canal stenosis. There is mild bilateral facetosteoarthritis. There is severe bilateral uncovertebral jointosteoarthritis. There is moderate to severe bilateral neural foraminal stenosis. C6-7: There is posterior disc osteophyte complex. There is mild centralcanal stenosis. There is mild bilateral facet osteoarthritis. There ismoderate bilateral uncovertebral joint osteoarthritis. There is moderatebilateral neural foraminal stenosis. C7-T1: There is no disc bulge. There is no central canal stenosis. Thereis no facet osteoarthritis. There is no uncovertebral jointosteoarthritis. There is no neural foraminal stenosis. IMPRESSION IMPRESSION: 1. Multilevel degenerative disc disease in the cervical spine mostpronounced at C5-6 where there is mild to moderate central canalstenosis. 2. Multilevel facet and uncovertebral joint osteoarthritis most pronouncedat C5- 6 where there is moderate to severe bilateral neural foraminalstenosis and at C6-7 where there is moderate bilateral neural foraminalstenosis. No definite abnormal cord signal is identified in the cervical spine. This report was electronically signed by SHEA MARTINEZ M.D. on 10/14/20174:07 PM . Amalia Pizano MD MR ORDERABLES * MRI LUMBAR SPINE WO CONTRAST (10/14/2017 4:05 PM LEARNING SERVICES COORDINATOR) Anatomical Region Laterality Modality Spine Other Impressions 10/14/2017 4:27 PM LEARNING SERVICES COORDINATOR IMPRESSION: 1. Disc protrusion at the level of L3-L4 with narrowing of the foramina but no root compression 2. Disc bulge at the level of L5-S1 with posterior osteophytes causing narrowing of the right intervertebral foramen with root compression. This report was electronically signed by DESHAUN Marie?on 10/14/2017 4:27 PM . Narrative 10/14/2017 4:27 PM LEARNING SERVICES COORDINATOR This is a summary report. The complete report is available in the patient's medical record. If you cannot access the medical record, please contact the sending organization for a detailed fax or copy. EXAMINATION: Magnetic resonance imaging (MRI) of the lumbar spine without contrast HISTORY: Myelopathy hyperreflexia right leg symptoms TECHNIQUE: MRI of the lumbar spine was performed without contrast according to standard protocol. FINDINGS: No prior study is available for comparison. The alignment is normal. Vertebral bodies are normal in height without compression fractures. Marrow signal ??intensity is normal. The conus medullaris terminates at the level of L1-L2 and the distal spinal cord signal intensity is normal. Intervertebral discs are normal in height and signal intensity except for desiccation at the level of L5-S1. No soft tissue abnormality is identified. L1-L2: The disc is normal without central canal stenosis. The facets are normal without foraminal stenosis. L2-L3: The disc is normal without central canal stenosis. The facets are normal with foraminal stenosis but no root compression seen. L3-L4: Mild disc protrusion at the level of L3-L4 is noted without central canal stenosis. The facets are normal without foraminal stenosis. L4-L5: The disc is normal without central canal stenosis. The facets are normal without foraminal stenosis. L5-S1: The disc is narrowed with disc protrusion and posterior osteophytes seen without central canal stenosis. The facets are normal with foraminal stenosis seen bilaterally more on the right side associated with compression. Irregularity of the outline of the right kidney is noted Procedure Note Marielena, Deshaun Buckley MD - 12/10/2017 This is a summary report. The complete report is available in thepatient's medical record. If you cannot access the medical record, pleasecontact the sending organization for a detailed fax or copy. EXAMINATION: Magnetic resonance imaging (MRI) of the lumbar spine withoutcontrast HISTORY: Myelopathy hyperreflexia right leg symptoms TECHNIQUE: MRI of the lumbar spine was performed without contrastaccording to standard protocol. FINDINGS: No prior study is available for comparison. The alignment is normal. Vertebral bodies are normal in height withoutcompression fractures. Marrow signal intensity is normal. The conusmedullaris terminates at the level of L1-L2 and the distal spinal cordsignal intensity is normal. Intervertebral discs are normal in height and signal intensity except for desiccation atthe level of L5-S1. No soft tissue abnormality is identified. L1-L2: The disc is normal without central canal stenosis. The facets arenormal without foraminal stenosis. L2-L3: The disc is normal without central canal stenosis. The facets arenormal with foraminal stenosis but no root compression seen. L3-L4: Mild disc protrusion at the level of L3-L4 is noted without centralcanal stenosis. The facets are normal without foraminal stenosis. L4-L5: The disc is normal without central canal stenosis. The facets arenormal without foraminal stenosis. L5-S1: The disc is narrowed with disc protrusion and posterior osteophytesseen without central canal stenosis. The facets are normal with foraminalstenosis seen bilaterally more on the right side associated withcompression. Irregularity of the outline of the right kidney is noted IMPRESSION IMPRESSION: 1. Disc protrusion at the level of L3-L4 with narrowing of the foraminabut no root compression 2. Disc bulge at the level of L5-S1 with posterior osteophytes causingnarrowing of the right intervertebral foramen with root compression. This report was electronically signed by DESHAUN BA on 10/14/20174:27 PM . Amalia Pizano MD MR ORDERABLES * HEMOGLOBIN A1C (10/01/2017 10:11 AM LEARNING SERVICES COORDINATOR) Hemoglobin A1c 6.2 4.4 - 6.3 % [facility] Estimated Average Glucose 131 mg/dL [facility] Comment: HbA1c Interpretation: Treatment target values recommended by ADA and other clinical organizations should be used to evaluate metabolic control in patients. Treatment Target Values: Normal : < 5.7% Pre-diabetes: 5.7-6.4% Diabetes: Equal to or greater than 6.5% Reference: [place] Diabetes Association Standards of Care in Diabetes -2014 In patients 70 years and older consider HbA1c target range of 7.0-7.5% Reference: ??Diabetes Mellitus in Older People: Position Statement on behalf of the International Association of Gerontology and Geriatrics (IAGG), the Diabetes Working Libertarian for Older People (EDWPOP), and the International Task Force of Experts in Diabetes. ??Jm Smith, et al. J [employer] Association. 2012 Test results diagnostic of diabetes should be repeated for confirmation. The Tosoh G8 assay for the measurement of HbA1c is a National Glycohemoglobin Standardization Program (NGSP)certified method. Results for patients with HbE disease should be interpreted with caution as this hemoglobinopathy has been shown to interfere with the Tosoh G8 assay. Blood specimen (specimen) BLOOD SPECIMEN / Unknown 10/01/2017 10:11 AM LEARNING SERVICES COORDINATOR 10/01/2017 10:28 AM LEARNING SERVICES COORDINATOR Amalia Pizano MD LAB - CHEMISTRY ANDRE BETTENCOURT [facility] [address] [phone] * CULTURE AEROBIC (03/08/2017 2:00 PM CDT) Culture Aerobic SEE NOTE [facility] ([facility]) Comment: ??CULTURE, AEROBIC BACTERIA WITH GRAM STAIN ?MICRO NUMBER: ?[id number] ??TEST STATUS: ? FINAL ??SPECIMEN SOURCE: ?? L FOREARM ??SPECIMEN QUALITY: ??ADEQUATE ??GRAM STAIN: ?Rare epithelial cells ? No white blood cells seen ? Rare Gram positive cocci ? Few Gram negative bacilli ??RESULT: ?A mix of non-predominating organisms of ? questionable significance was recovered on culture ? and not further identified. (Note: Growth did not ? detect the presence of S. Aureus, beta-hemolytic ? Streptococci or P. Aeruginosa). NO COLLECTION DATE RECEIVED. WE HAVE USED THE DATE THE SPECIMEN WAS RECEIVED BY THIS LABORATORY THE COLLECTION DATE. IF THIS IS INCORRECT, PLEASE CONTACT CLIENT SERVICES. PHONE NUMBER: [phone] Test Performed at: [facility] [address] ??[id number] NUZHAT SARABIA MD 03/08/2017 2:00 PM CDT 03/06/2017 2:34 AM CDT Riccardo Chase MD LAB - MICROBIOLOGY O TOPHER Performing Organization Address [facility] Co de Phone Number [facility] ([facility]) * LAB HISTORICAL RESULTS-ONBASE (03/06/2017) 03/06/2017 Historical Provider LAB - CHEMISTRY O TOPHER Performing Organization Address [facility] Co de Phone Number [place] [phone] Care Teams Radio News Anchor Relationship Specialty Start Date End Date Beto Rivers DO PCP - General 07/22/18
--- OUTSIDE RECORDS SUMMARY | 2024-10-08 10:07 | XMS_ITS | Clinical Summary ---
Author Organization [facility] Address [address] [place] [address]. [place] [address] [place] [address] Care Team Providers Care City Controller Name Role Phone Unavailable Primary Care Provider Unavailabl e Social History Tobacco Use Types Packs/Day Years Used Date Smoking Tobacco: Never Assessed Sex and Gender Information Value Date Recorded Sex Assigned at Not on file Legal Sex Male 7:23 PM CDT Gender Identity Not on file Sexual Orientation Not on file Plan of Treatment Health Maintenance Due Date Last Done Comments Colorectal Cancer Screening Colonoscopy (10 Years) 1964 Annual Physical 1967 Hepatitis C 1982 DTaP, Tdap and Td Vaccines ( 1 - Tdap) 1983 Zoster Vaccines (1 of 2) 2014 COVID-19 Vaccine ( - 2023-2 5 season) 2024 Influenza Adult (#1) 2024 RSV Immunization or 60+ Years (1 - 1-dose 75+ series) 2039 Meningococcal B Vaccine Aged Out No l onger eligible based on patient's age to complete this topic Meningococcal Vaccine Aged Out No oren vignesh eligible based on patient's age to complete this topic Pneumococcal Vaccine: Pediat rics (0 to 5 Years) and At-Risk Patients (6 to 64 Years) Aged Out No longer eligible b ased on patient's age to complete this topic RSV Immunizations Under 20 Months Aged Out No longer eligible based on patient's age to complete this topic
--- OUTSIDE RECORDS SUMMARY | 2024-10-08 10:07 | XMS_ITS | Clinical Summary ---
Author Organization 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 Role Phone Unavailable Primary Care Provider Unavailabl e Social History Tobacco Use Types Packs/Day Years Used Date Smoking Tobacco: Never Assessed Sex and Gender Information Value Date Recorded Sex Assigned at Not on file Legal Sex Male 1:13 PM CDT Gender Identity Not on file Sexual Orientation Not on file Plan of Treatment Health Maintenance Due Date Last Done Comments Hepatitis C Virus (HCV) Screening 1965 TdaP Immunization 1965 Colonoscopy 2009 Colorectal Cancer Screening 2009 Cologuard 2014 Immunochemical Fecal Occult Blood 2014 Pneumococcal Immunization (5 0+ years) (1 of 1 - PCV) 2014 Zoster Immunization (1 of 2) 2014 PSA Discussion 2019 Influenza Immunization (#1) 2024 SARS-COV-2 Immunization (1 - 2023- season) 2024 Respiratory Syncytial Virus (RSV) Immunization (Adult) (1 - 1-dose 75+ series) 2039 Hepatitis B Immunization Aged Out No longer eligible based on patient's age to complete this topic Meningococcal Immunization (ACWY) Aged Out No longer eligible based on patient's age to complete this topic Pneumococcal Immunization Combined Aged Out No longer eligible based on patient's age to complete this topic Rotavirus Immunization Aged Out No lo nger eligible based on patient's age to complete this topic
--- OUTSIDE RECORDS SUMMARY | 2024-10-08 10:07 | XMS_ITS | Data Portability ---
Author Organization [place] - [facility] [employer], Main Office Address [address] [place] [address] Assessment No assessment recorded. Plan of Treatment Reminders Order Date Submit Date Provider Last Modified By Organization Details Last Modified Time Details Appointments None recorded. Lab TSH + free T4, serum 2022 023 [email or web address] [facility], [address], [place], [address], 4 14:37:39 lipid panel, serum 2022 023 [email or web address] [facility], [address], [place], [address], 4 14:37:38 iron + total iron-bindin g capacity (TIBC), serum 2022 023 [email or web address] [facility], [address], [place], [address], 4 14:37:38 ferritin, serum or plasma 2022 023 [email or web address] [facility], [address], [place], [address], 4 14:37:38 CBC w/ auto diff 2022 023 [email or web address] [facility], [address], [place], [address], 4 14:37:38 CMP, serum or plasma 2022 023 [email or web address] [facility], [address], [place], [address], 4 14:37:39 PSA, total, serum or plasma 2022 023 [email or web address] [facility], [address], [place], [address], 4 14:37:38 HbA1c (hemoglobin A1c), blood 2022 023 [email or web address] [facility], [address], [place], [address], 4 14:37:38 Referral psychiatris t referral 2022 023 [email or web address] [facility], [address] [place] [address], [address], [place], [address], 3 15:53:22 Procedures colonoscopy screening (PROC) 2022 023 [email or web address] Not available 3 15:52:45 Surgeries None recorded. Imaging None recorded. Medication Orders bupropion HCl SR 200 mg tablet,12 hr sustained-r elease 2022 023 [facility] [place], [address], 3 12:25:59 lisinopril 10 mg tablet 2022 023 [facility] [address] [place], [address], 3 12:26:01 Patient TargetsNo targets recorded. Patient InstructionsNo instructions recorded. Reason for Referral Psychiatrist Referral for Mi xed anxiety and depressive disorder Referring Physician: Noelle Ng, Internal Medicine, Encounter Date: 02/19/2023 Results Created Date Observation Date Name Description Value Unit Range Abnormal Flag Note LastModifiedBy Organization Detail LastModifiedTime 01/08/20 22 01/08/2022 CBC (INCL UDES DIFF/ PLT) white blood cell count 8.2 thous and/u L 3.8-10 .8 normal Not Available [address], [address], 01/08/2022 07:49:18 01/08/20 22 01/08/2022 CBC (INCL UDES DIFF/ PLT) red blood cell count 3.79 marycarmen on/uL 4.20-5 .80 low Not Available [facility] [address], [address], 01/08/2022 07:49:18 01/08/20 22 01/08/2022 CBC (INCL UDES DIFF/ PLT) hemoglobin 11.1 g/dL 13.2-1 7.1 low Not Available [facility] [address], [address], 01/08/2022 07:49:18 01/08/20 22 01/08/2022 CBC (INCL UDES DIFF/ PLT) hematocrit 34.0 % 38.5-5 0.0 low Not Available [facility] [address], [address], 01/08/2022 07:49:18 01/08/20 22 01/08/2022 CBC (INCL UDES DIFF/ PLT) MCV 89.7 fL 80.0-1 00.0 normal Not Available [address], [address], 01/08/2022 07:49:18 01/08/20 22 01/08/2022 CBC (INCL UDES DIFF/ PLT) MCH 29.3 pg 27.0-3 3.0 normal Not Available [facility] [address], [address], 01/08/2022 07:49:18 01/08/20 22 01/08/2022 CBC (INCL UDES DIFF/ PLT) MCHC 32.6 g/dL 32.0-3 6.0 normal Not Available [address], [address], 01/08/2022 07:49:18 01/08/20 22 01/08/2022 CBC (INCL UDES DIFF/ PLT) RDW 12.5 % 11.0-1 5.0 normal Not Available [address], [address], 01/08/2022 07:49:18 01/08/20 22 01/08/2022 CBC (INCL UDES DIFF/ PLT) platelet count 388 thous and/u L 140-40 0 normal Not Available [address], [address], 01/08/2022 07:49:18 01/08/20 22 01/08/2022 CBC (INCL UDES DIFF/ PLT) MPV 10.3 fL 7.5-12 .5 normal Not Available [address], [address], 01/08/2022 07:49:18 01/08/20 22 01/08/2022 CBC (INCL UDES DIFF/ PLT) absolute neutrophils 5027 cells /uL 1500-7 800 normal Not Available [address], [address], 01/08/2022 07:49:18 01/08/20 22 01/08/2022 CBC (INCL UDES DIFF/ PLT) absolute lymphocytes 2173 cells /uL 850-39 00 normal Not Available [facility] [address], [address], 01/08/2022 07:49:18 01/08/20 22 01/08/2022 CBC (INCL UDES DIFF/ PLT) absolute monocytes 763 cells /uL 200-95 0 normal Not Available [address], [address], 01/08/2022 07:49:18 01/08/20 22 01/08/2022 CBC (INCL UDES DIFF/ PLT) absolute eosinophils 189 cells /uL 15-500 normal Not Available [facility] [address], [address], 01/08/2022 07:49:18 01/08/20 22 01/08/2022 CBC (INCL UDES DIFF/ PLT) absolute basophils 49 cells /uL 0-200 normal Not Available [facility] [address], [address], 01/08/2022 07:49:18 01/08/20 22 01/08/2022 CBC (INCL UDES DIFF/ PLT) neutrophils 61.3 % normal Not Available [facility] [address], [address], 01/08/2022 07:49:18 01/08/20 22 01/08/2022 CBC (INCL UDES DIFF/ PLT) lymphocytes 26.5 % normal Not Available [facility] [address], [address], 01/08/2022 07:49:18 01/08/20 22 01/08/2022 CBC (INCL UDES DIFF/ PLT) monocytes 9.3 % normal Not Available [facility] [address], [address], 01/08/2022 07:49:18 01/08/20 22 01/08/2022 CBC (INCL UDES DIFF/ PLT) eosinophils 2.3 % normal Not Available [facility] [address], [address], 01/08/2022 07:49:18 01/08/20 22 01/08/2022 CBC (INCL UDES DIFF/ PLT) basophils 0.6 % normal Not Available [facility] [address], [address], 01/08/2022 07:49:18 01/08/20 22 01/08/2022 IRON, TIBC AND KEKE TIN PANEL iron, total 69 mcg/d L 50-180 normal Not Available [address] [address] [place], [address], 01/08/2022 07:49:17 01/08/20 22 01/08/2022 IRON, TIBC AND KEKE TIN PANEL iron binding capacity 384 mcg/d L_(ca lc) 250-42 5 normal Not Available [facility] [address] [address] [place], [address], 01/08/2022 07:49:17 01/08/20 22 01/08/2022 IRON, TIBC AND KEKE TIN PANEL % saturation 18 %_(ca lc) 20-48 low Not Available [address] [place], [address], 01/08/2022 07:49:17 01/08/20 22 01/08/2022 IRON, TIBC AND KEKE TIN PANEL ferritin 29 NG/mL 38-380 low Not Available [address] [place], [address], 01/08/2022 07:49:17 01/10/20 22 01/01/2022 CT, abdom en + pelvi s, w/ contr ast No observ ation record ed. [id number], [place], [address], 11/06/2022 17:50:29 Result Notes None recorded. Problems Name Problem SNOMED Code Status Onset Date Resolution Date Notes Provider Name and Address Organization Details Recorded Time Peptic ulcer 41877950 Active 2021 Not Available [facility] 3 17:47:19 Mixed anxiety and depressive disorder 709788589 Active 2021 Not Available [facility] 3 17:47:19 Anemia 103700662 Active 2021 Not Available [facility] 3 17:47:19 Hypertensive disorder 34878450 Active 2019 Not Available [facility] 3 17:47:19 Problem Notes None recorded. Procedures Surgical History Date Name Laterality Status Provider Name and Address Organization Details Recorded Time 01/03/20 cardiac catheterization completed Not Available [facility] 11/06/2022 17:44:52 09/08/19 Hernia repair w/mesh completed Not Available [facility] 11/06/2022 17:44:52 Imaging Results Imaging Date Name Status LastModified by Organiz ation Details LastModified Time 01/01/2022 CT, abdomen + pelvis, w/ contrast completed [id number] [address] [place] [address] [address], [place], [address], 11/06/2022 17:50:29 Procedure Notes None recorded. Medical Equipment None Reported. Allergies No known drug allergies Medications Name Sig Start Date Stop Date Status Note LastModified by Organization Details LastModified Time bupropion HCl SR 150 mg tablet,12 hr sustained-r elease Take 1 tablet twice a day by oral route as directed. active Not Available Not Available No t Available promethazin e-DM 6.25 mg-15 mg/5 mL oral syrup TK 5 ML PO Q 4 TO 6 H PRN COU AND NAUSEA 05/26 completed Not Available Not Available Not Available trazodone 50 mg tablet TAKE 1 TABLET BY MOUTH NEEDED AT BEDTIME FOR 30 DAYS active Not Available Not Available No t Available sucralfate 1 gram tablet TAKE 1 TABLET BY MOUTH TWICE DAILY 02/19 completed Not Available Not Available Not Available hydroxyzine pamoate 50 mg capsule TAKE 1 CAPSULE BY MOUTH NEEDED AT BEDTIME FOR 30 DAYS active Not Available Not Available No t Available peg-electro lyte solution 420 gram oral solution DRINK 1/2 OF THE SOLUTION AT 5PM ON 04/02 AND THE OTHER 1/2 AT 5AM ON 04/03 active Not Available Not Available No t Available omeprazole 40 mg capsule,del ayed release TAKE 1 CAPSULE BY MOUTH ONCE DAILY WITH MEALS 02/19 completed Not Available Not Available Not Available triamcinolo ne acetonide 0.1 % topical cream [place] THIN LAYER EXT AA BID 05/30 completed Not Available Not Available Not Available cephalexin 500 mg capsule TAKE 1 CAPSULE BY MOUTH EVERY 8 HOURS 02/19 completed Not Available Not Available Not Available lisinopril 10 mg tablet TAKE 1 TABLET BY MOUTH ONCE DAILY active Not Available Not Available No t Available prednisone 50 mg tablet TK 1 T PO D. TK WITH FOOD OR MILK. 05/26 completed Not Available Not Available Not Available mupirocin 2 % topical ointment [place] TOPICALLY AA BID 05/30 completed Not Available Not Available Not Available sertraline 50 mg tablet TAKE 1 & 1/2 (ONE & ONE-HALF) TABLETS BY MOUTH ONCE DAILY active Not Available Not Available No t Available hydroxyzine pamoate 25 mg capsule TAKE 1 CAPSULE BY MOUTH NEEDED AT BEDTIME FOR 30 DAYS active Not Available Not Available No t Available bupropion HCl SR 200 mg tablet,12 hr sustained-r elease TAKE 1 TABLET BY MOUTH TWICE DAILY DIRECTED active Not Available Not Available No t Available aripiprazol e 5 mg tablet Take 1 tablet every day by oral route. 02/19 completed Not Available Not Available Not Available melatonin active Not Available Not Lauren ilable Not Available Fish Oil otc, takes daily 2019 active Not Available Not Available Not Avai lable [place] 3 otc, takes daily 2019 active Not Available Not Available Not Avai lable Multivitami n 50 Plus takes daily 2019 active Not Available Not Available Not Avai lable aripiprazol e 2 mg tablet TAKE 1 TABLET BY MOUTH ONCE DAILY 02/19 completed Not Available Not Available Not Available Fruit and Vegetable Daily otc, takes daily 01/04 completed Not Available Not Available Not Available Vitals Date Recorded Body mass index (BMI) Body mass index (BMI) Body mass index (BMI) Systolic blood pressure Diastolic blood pressure Systolic blood pressure Diastolic blood pressure Provider Name and Address Organization Details Last Updated DateTime 3 20.8 kg/m2 19.4 kg/m2 20 kg/m2 120 mm[Hg] 80 mm[Hg] 124 mm[Hg] 80 mm[Hg] Not Available [facility] 3 17:46:15 Date Recorded Body height Body height Body height Oxygen saturation Oxygen saturation in Arterial blood by Pulse oximetry Oxygen saturation Oxygen saturation in Arterial blood by Pulse oximetry Oxygen saturation Oxygen saturation in Arterial blood by Pulse oximetry Heart rate Systolic blood pressure Diastolic blood pressure Systolic blood pressure Diastolic blood pressure Provider Name and Address Organization Details Last Updated DateTime 3 182.88 cm 182.88 cm 182.88 cm 96 % 96 % 99 % 99 % 97 % 97 % 72 /min 140 mm[Hg] 90 mm[Hg] 122 mm[Hg] 72 mm[Hg] Not Available [facility] 3 17:46:16 Date Recorded Heart rate Heart rate Respiratory rate Respiratory rate Body temperature Body temperature Body temperature Body weight Body weight Body weight Provider Name and Address Organization Details Last Updated DateTime 3 70 /min 89 /min 16 /min 16 /min 97.7 [degF] 97.8 [degF] 97.6 [degF] 72932.3 5 g 83515.7 1 g 12025.9 5 g Not Available [facility] 3 17:46:17 Date Recorded Body height Provider Name an d Address Organization Details Last Updated DateTime 02/19/2023 182.88 cm Sonia Arndt [facility] [employer] 02/19/2023 11:46:58 Date Recorded Body temperature Provider Name a nd Address Organization Details Last Updated DateTime 02/19/2023 97.6 [degF] Sonia Arndt [facility] [employer] 02/19/2023 11:47:06 Date Recorded Body mass index (BMI) Body weight Provider Name and Address Organization Details Last Updated DateTime 02/19/2023 19.4 kg/m2 71300.71 g MATTY Coello [employer] 02/19/2023 11:54:50 Date Recorded Respiratory rate Provider Name a nd Address Organization Details Last Updated DateTime 02/19/2023 16 /min Sonia Arndt [facility] [employer] 02/19/2023 11:55:50 Date Recorded Oxygen saturation Oxygen saturation in Arterial blood by Pulse oximetry Provider Name and Address Organization Details Last Updated DateTime 02/19/2023 97 % 97 % MATTY Coello [employer] 02/19/2023 11:55:57 Date Recorded Heart rate Provider Name an d Address Organization Details Last Updated DateTime 02/19/2023 61 /min MATTY Coello [facility] 02/19/2023 11:56:00 Date Recorded Systolic blood pressure Diastolic blood pressure Provider Name and Address Organization Details Last Updated DateTime 02/19/2023 128 mm[Hg] 80 mm[Hg] MATTY Coello [facility] 02/19/2023 11:55:49 Social History Question Answer Notes LastModified by Organizat ion Details LastModified Time Tobacco Smoking Status Current Every Day Smoker MATTY Coello [email or web address] [place] [facility] 02/19/2023 11:46:38 Do You Have An Advance Directive? No [id number] Information not available 11/06/2022 What Is Your Level Of Alcohol Consumption? None [id number] Information not available 11/06/2022 Do You Wear A Helmet When Biking? No [email or web address] Information not available 02/19/2023 What Is Your Level Of Caffeine Consumption? Moderate [id number] Information not available 11/06/2022 In The 14 Days Before Symptom Onset, Have You Had Close Contact With A Laboratory-confir med COVID-19 While That Case Was Ill? No [email or web address] Information not available 02/19/2023 In The 14 Days Before Symptom Onset, Have You Had Close Contact With A Person Who Is Under Investigation For COVID-19 While That Person Was Ill? No [email or web address] Information not available 02/19/2023 Are You Currently Employed? Yes [email or web address] Information not available 02/19/2023 What Type Of Diet Are You Following? 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 No [email or web address] Information no t available 02/19/2023 Are There Any Guns Present In Your Home? No [email or web address] Information not available 02/19/2023 Do You Use Insect Repellent Routinely? Yes [email or web address] Information not available 02/19/2023 Do You Have A Medical Power Of Visual Designer? No [email or web address] Information not available 02/19/2023 What Is Your Relationship Status? Single [id number] Information not available 11/06/2022 Do You Use Your Seat Belt Or Car Seat Routinely? Yes [email or web address] Information not available 02/19/2023 Do You Have Smoke And Carbon Monoxide Detectors In Your Home? Yes [email or web address] Information not available 02/19/2023 Are You Passively Exposed To Smoke? No [email or web address] Information no t available 02/19/2023 Are There Any Smokers In Your House? Yes [email or web address] Information not available 02/19/2023 How Much Tobacco Do You Smoke? 0.25 PPD [id number] Information not available 11/06/2022 Do You Feel Stressed (tense, Restless, Nervous, Or Anxious, Or Unable To Sleep At Night)? [id number] [email or web address] Information not available 02/19/2023 Do You Use Any Illicit Or Recreational Drugs? No [email or web address] Information not available 02/19/2023 Do You Use Sunscreen Routinely? Yes [email or web address] Information not available 02/19/2023 Has Tobacco Cessation Counseling Been Provided? No [email or web address] Information not available 02/19/2023 How Many Years Have You Smoked Tobacco? 26 Information not available 02/19/2023 Have You Recently Traveled Abroad? No [email or web address] Information not available 02/19/2023 Do You Have Any Dietary Restrictions? No [email or web address] Information not available 02/19/2023 Do You Or Have You Ever Used Any Other Forms Of Tobacco Or Nicotine? No Information not available 02/19/2023 Sex: Male Functional Status Question Answer Note LastModified by Organizat ion Details LastModified Time What is your exercise level? Moderate [id number] Information not available 11/06/2022 Mental Status None recorded. Family History Relationship Description Onset Age of this Age Resolved Age Notes LastModified by Organization Details LastModified Time Mother Type 2 diabetes mellitus [email or web address] Not available 02/19 11:46:37 Father Heart disease [id number] Not available 11/06/2022 17:44:54 Medical History Condition Response HEADACHES/MIGRAINES Y ANXIETY DISORDER Y DEPRESSION (INCLUDING POST ) Y DIZZINESS Y ASTHMA Y Past Encounters Encounter ID Performer Location Encounter Start Date Encounter Closed Date Diagnosis/Indication Diagnosis SNOMED-CT Code Diagnosis ICD10 Code Diagnosis Note [id number] [facility] [address] [place] [address] 07/03/2021 00:00:00 07/03/2021 13:54:38 [id number] [facility] [address] [place] [address] 01/04/2022 00:00:00 01/04/2022 17:25:27 [id number] [facility] [address] [place] [address] 01/30/2022 00:00:00 01/30/2022 11:59:01 [id number] NELLY Yang [facility] [address] [place] [address] 02/19/2023 11:44:15 02/19/2023 12:28:43 Adult health examination 047967067 Z00.01 well exam completed. Anemia 880065269 D64.9 hx of anemia from PUD> screening iron studies and cbc due Mixed anxi ety and depressive disorder 096555557 F41.[address] for more involved evaluation /managemen t of mental health. History of peptic ulcer 867456968 Z87.11 stable. asymptomat ic of flare up Cholesterol screening 27 2959371 Z13.220 fasting lipids due Diabetes m ellitus screening 285958987 Z13.1 a1c screening due Screening for malignant neoplasm of prostate 435438035 Z12.5 PSA due Screening for malignant neoplasm of colon 795159154 Z12.11 colonoscop y ordered again Thyroid di sorder screening 741076842 Z13.29 screening TFTs due Hypertensive disorder 38 069028 I10 stable on lisinopril 10mg daily Renewal of prescription 790001073 Z76.0 refill meds [id number] Madison Caicedo NP [facility] [address] [facility] [place], [address] [address] 03/13/2023 09:23:07 03/13/2023 15:54:27 [id number] Madison Caicedo NP [facility] [address] [facility] [address] 04/10/2023 11:22:32 04/10/2023 14:48:26 [id number] Madison Caicedo NP [facility] [address] [place] [address] [address] 05/08/2023 11:06:17 05/08/2023 11:46:32 [id number] Madison Caicedo NP [facility] [address] [facility] [address] 06/05/2023 11:24:59 06/05/2023 12:49:23 [id number] Madison Caicedo NP [facility] [address] [facility] [address] 07/03/2023 11:59:32 07/03/2023 12:38:30 [id number] Madison Caicedo NP [facility] [address] [place] [address] [address] 08/07/2023 12:14:40 08/07/2023 15:14:48 [id number] Madison Caicedo NP [facility] [address] [place] [address] [address] 09/11/2023 10:51:12 09/11/2023 13:17:31 Health Concerns Section Related Observation LastModified by Organization Detai ls LastModified Time None Recorded Concern Status LastModified by Organization Details LastModified Time None Recorded Advance Directives Directive N: Payers Encounter Date Sequence Insurance Name Policy Number Policy Stephens Covered Member ID Stephens Member ID Guarantor Name 02/19/2023 1 [facility] [id number] Damon Raymundo [id number] Damon Raymundo Notes Date Note Type Note Provider Name and Address Organization Details Recorded Time 07/03/20 21 text/htm l Anxiety, Generalized DisorderReported bypatient.Associated Symptoms:no difficulty concentrating; no difficulty controlling worry; no difficulty swallowing; no anxiety; no excessive sweating; no hot flashes; no palpitations; no shortness of breath; no nausea; no diarrhea; no fatigue; no irritability; no muscle tension; no muscle aches; no trembling; no twitching; no headaches; no restlessness; no sleep disturbancesHypertensionReport ed bypatient.Onset/Timing:better Self Care:not under emotional stress Associated Symptoms:no shortness of breath; no fatigue; no palpitations; no decline in exercise capacity; no snoring Not Available [facility] 07/03/2021 13:54:38 01/05/20 22 text/htm l Generic HPI TemplateReported bypatient.Notes:Pt is here for a en e/r f/u from 12/31/21 for chest pain. They ended up admitting him and doing a heart cath. It was normal. Records are in the room w/him. (D/C was not signed off yet so I dont have that yet. ) Today he is feeling alright. This morning he did get up at 2am and got oatmeal and when he came up stairs he got the chest pain and dizziness that lasted 1-2 min. At the hospital they did find emphysema in both lungs. Upon review of notes, a CT scan a/p shows some signs of peptic ulcer disease and his labs showed lower H/H that wasn't discussed with him. Not Available [facility] [employer] 01/04/2022 17:25:27 01/31/20 22 text/htm l Generic HPI TemplateReported bypatient.Notes:Pt is here to f/u on a peptic ulcer after starting omeprazole. He is getting his scopes done next week. He is feeling good today and no issues w/the omeprazole. also following up on abilify 2mg daily that was added to his wellbutrin to help with the depression and emotional episodes that happen often for him. He isn't noticing much of any change yet on that dose. He is interested in re-establishing with psychiatry to help evaluate and manage him in more depth. Not Available [facility] [employer] [facility] 01/30/2022 11:59:01 02/20/20 23 text/htm l Anxiety/DepressionReported bypatient.Quality:symptoms worse during the day Severity:denies suicidal ideations; able to maintain relationships;interference with sleep Duration:symptoms lasting over 2 weeks Onset/Timing:still present Context:no major life stressors Modifying Factors:rx Associated Symptoms:denies homicidal ideations; no significant weight gain; no significant weight loss; no visual/auditory hallucinations; no delusions; no shortness of breathHypertensionReported bypatient.Duration:has noted for years Onset/Timing:better Alleviating Factors:medication Associated Symptoms:no shortness of breath; no palpitations; no decline in exercise capacity; no snoring;fatigue Wellness NELLY Yang [address] [facility] [address], [place], [address], [facility] 03/07/2023 22:23:09
[2024-10-08 10:09] VITALS: BP 146/90; PULSE 68; RESP 16; TEMP 36.6; O2SAT 100
[2024-10-08 10:10] LABS: Basophils Absolute Auto 0.1 K/mm3 (0.0-0.1); Basophils Percent Auto 0.9 % (0.2-1.2); Eosinophils Absolute Auto 0.6 K/mm3 (0-0.3); Eosinophils Percent Auto 7.5 % (0-4.4); Hematocrit 35.7 % (42.0-52.0); Hemoglobin 11.3 g/dL (14.0-18.0); Immature Granulocyte Absolute 0.01 K/mm3 (0.00-0.031); Immature Granulocyte Percent A 0.1 % (0-0.5); Lymphocytes Absolute Auto 1.88 K/mm3 (0.9-3.2); Lymphocytes Percent Auto 24.4 % (18.3-44.2); Mean Corpuscular HGB Conc 31.7 g/dl (32-36); Mean Corpuscular Volume 88.6 fl (80-100); Monocytes Absolute Auto 0.7 K/mm3 (0.1-0.6); Monocytes Percent Auto 9.2 % (2.6-8.5); Neutrophils Absolute Auto 4.4 K/mm3 (1.3-6.7); Neutrophils Percent Auto 57.9 % (45.5-73.1); Platelet Count Result 378 k/mm3 (150-375); Red Blood Count 4.03 M/mm3 (4.6-6.20); Red Cell Distribution Width 15.7 % (11.5-14.5); White Blood Count 7.7 K/mm3 (4.5-10.0)
[2024-10-08 10:20] LABS: Alanine Aminotransferase 28 U/L (6-50); Albumin Level 4.3 g/dL (3.5-5.1); Alkaline Phosphatase 80 U/L (38-126); Anion Gap 10 mmol/L (4-12); Aspartate Amino Transferase 36 U/L (17-59); Bilirubin,Total 0.3 mg/dL (0.2-1.3); Blood Urea Nitrogen 25 mg/dL (9-20); Calcium 10.4 mg/dL (8.4-10.2); Carbon Dioxide 28 mmol/L (22-30); Chloride 102 mmol/L (98-107); Estimated CRCL calculation 52 ml/min; Estimated Glomerular Filt Rate > 60; Glucose 99 mg/dL (65-110); Lipase 282 U/L (23-300); Potassium 4.2 mmol/L (3.4-5.0); Sodium 140 mmol/L (137-145)
[2024-10-08 10:30] LABS: INR 0.9; Partial Thromboplastin Time 27.4 Seconds (22.3-36.8); Prothrombin Time 12.8 Seconds (11.1-14.7)
[2024-10-08 10:31] LABS: Troponin I < 0.012 ng/mL (0.000-0.034)
[2024-10-08 10:46] LABS: Influenza A QL RT-PCR Negative (Negative); Influenza B QL RT-PCR Negative (Negative); RSV RNA, RT-PCR Negative (Negative); SARS-CoV-2 RNA PCR Negative (Negative)
--- OUTSIDE RECORDS SUMMARY | 2024-10-08 12:08 | XMS_ITS | Clinical Summary ---
Author Organization [facility] Address [address] [place] [address] Care Team Providers Care City Carrier Name Role Phone Unavailable Primary Care Provider [...]
--- OUTSIDE RECORDS SUMMARY | 2024-10-08 12:08 | XMS_ITS | Referral Summary ---
Author Organization [facility] Address [address] [place] [address] Care Team Providers Care Systems Software Manager Name Role Phone Beto Rivers DO Primary Care Provider [phone] Source Comments [facility],non-owned Affiliates and Associated Physician Practices is amultiple site organization consisting of ambulatory clinics and hospital sitesin [place], [place], [place] and [place]. This disclosure is being madepursuant to the Care Everywhere program and may not contain all information available regarding this patient. Last updated 18.[facility] [employer] Social History Tobacco Use Types Packs/Day Years Used Date Smoking Tobacco: Never Assessed Sex and Gender Information Value Date Recorded Sex Assigned at Not on file Gender Identity Not on file Sexual Orientation Not on file Last Filed Vital Signs Vital Sign Reading Time Taken Comments Blood Pressure 127/83 10/29/2017 9:01 AM CORN CHIP MAKER Pulse 74 10/29/2017 9:01 AM CORN CHIP MAKER Temperature 36.7 ??C (98 ??F) 10/01/2017 8:44 AM CORN CHIP MAKER Respiratory Rate - - Oxygen Saturation 97% 10/29/2017 9:01 AM CORN CHIP MAKER Inhaled Oxygen Concentration - - Weight 74.8 kg (165 lb) 10/29/2017 9:01 AM CORN CHIP MAKER Height 182.9 cm (6') 10/29/2017 9:01 AM CORN CHIP MAKER Body Mass Index 22.38 10/29/2017 9:01 AM CORN CHIP MAKER Plan of Treatment Not on file Care Teams Systems Software Manager Relationship Specialty Start Date End Date Beto Rivers DO PCP - General 07/22/18
--- OUTSIDE RECORDS SUMMARY | 2024-10-08 12:08 | XMS_ITS | Clinical Summary ---
Author Organization [facility] Address [address] [place] [address] Care Team Providers Care Hop Farm Worker Name Role Phone Beto Rivers DO Primary Care Provider [phone] Source Comments [facility],non-owned Affiliates and Associated Physician Practices is amultiple site organization consisting of ambulatory clinics and hospital sitesin [place], [place], [place] and [place]. This disclosure is being madepursuant to the Care Everywhere program and may not contain all information available regarding this patient. Last updated 18.[facility] Social History Tobacco Use Types Packs/Day Years Used Date Smoking Tobacco: Never Assessed Sex and Gender Information Value Date Recorded Sex Assigned at Not on file Gender Identity Not on file Sexual Orientation Not on file Last Filed Vital Signs Vital Sign Reading Time Taken Comments Blood Pressure 127/83 10/29/2017 9:01 AM CITY DISPATCH SUPERVISOR Pulse 74 10/29/2017 9:01 AM CITY DISPATCH SUPERVISOR Temperature 36.7 ??C (98 ??F) 10/01/2017 8:44 AM CITY DISPATCH SUPERVISOR Respiratory Rate - - Oxygen Saturation 97% 10/29/2017 9:01 AM CITY DISPATCH SUPERVISOR Inhaled Oxygen Concentration - - Weight 74.8 kg (165 lb) 10/29/2017 9:01 AM CITY DISPATCH SUPERVISOR Height 182.9 cm (6') 10/29/2017 9:01 AM CITY DISPATCH SUPERVISOR Body Mass Index 22.38 10/29/2017 9:01 AM CITY DISPATCH SUPERVISOR Plan of Treatment Health Maintenance Due Date [...] age to complete this topic Care Teams Hop Farm Worker Relationship Specialty Start Date End Date Beto Rivers DO PCP - General 07/22/18
--- OUTSIDE RECORDS SUMMARY | 2024-10-08 12:08 | XMS_ITS | Clinical Summary ---
Author Organization [facility] Address [address] [place] [address]. [place] [address] [place] [address] Care Team Providers Care Bank Reconciliator Name Role Phone Unavailable Primary Care Provider [...]
--- OUTSIDE RECORDS SUMMARY | 2024-10-08 12:08 | XMS_ITS | Continuity of Care Document ---
Author Organization [facility] Address [address] [place] [address] Phone Care Team Providers Care Odd Bundle Worker Name Role Phone Unavailable Unavailable Unavailable Allergies, Adverse Reactions, Alerts Substance Reaction Status Criticality No Known allergies Medications Medication Instructions Dosage Effective Dates (start - stop) Status Comments Bactrim DS 800 mg-160 mg Tab take 1 tablet by oral route every 12 hours 1.00 tablet - Active Procedures Procedure Date OFFICE/OUTPATIENT VISIT, [facility] Advance Directives Directive Yes / No [...] Providers Copied on Encounter OFFICE/OUTPAT IENT VISIT, [facility] , [address], [place], [place], [id number], [place] tel:[phone] Tsering Middleton Rommel swollen face (chief complaint) Sialoadenitis 1 No Information Family History Family Member Type Diagnosis Age At Onset No Information Payers Payer name Insurance type Covered green party ID Authoriza tion(s) No Information Social History [...]
--- OUTSIDE RECORDS SUMMARY | 2024-10-08 12:08 | XMS_ITS | Patient Health Summary ---
Author Organization [facility] Address [address] [place] [address] Care Team Providers Care Child And Adolescent Psychiatrist Name Role Phone Beto Rivers DO Primary Care Provider [phone] Note from [facility],non-owned Affiliates and Associated Physician Practices is amultiple site organization consisting of ambulatory clinics and hospital sitesin [place], [place], [place]. This disclosure is being madepursuant to the Care Everywhere program and may not contain all information available regarding this patient. Last updated 18.[facility] Social History Tobacco Use Types Packs/Day Years Used Date Smoking Tobacco: Never Assessed Sex and Gender Information Value Date Recorded Sex Assigned at Not on file Gender Identity Not on file Sexual Orientation Not on file Last Filed Vital Signs Vital Sign Reading Time Taken Comments Blood Pressure 127/83 10/29/2017 9:01 AM SENIOR SPECIALIST Pulse 74 10/29/2017 9:01 AM SENIOR SPECIALIST Temperature 36.7 ??C (98 ??F) 10/01/2017 8:44 AM SENIOR SPECIALIST Respiratory Rate - - Oxygen Saturation 97% 10/29/2017 9:01 AM SENIOR SPECIALIST Inhaled Oxygen Concentration - - Weight 74.8 kg (165 lb) 10/29/2017 9:01 AM SENIOR SPECIALIST Height 182.9 cm (6') 10/29/2017 9:01 AM SENIOR SPECIALIST Body Mass Index 22.38 10/29/2017 9:01 AM SENIOR SPECIALIST Procedures * MRI CERVICAL SPINE WO CONTRAST(Performed 10/14/2017) * MRI LUMBAR SPINE WO CONTRAST(Performed 10/14/2017) * HEMOGLOBIN A1C(Performed 10/01/2017) * CULTURE AEROBIC(Performed 03/08/2017) * LAB HISTORICAL RESULTS-ONBASE(Performed 03/06/2017) Results * MRI CERVICAL SPINE WO CONTRAST (10/14/2017 4:05 PM SENIOR SPECIALIST) Anatomical Region Laterality Modality Pelvis Other Impressions 10/14/2017 4:07 PM SENIOR SPECIALIST IMPRESSION: 1. Multilevel degenerative disc disease in [...] 4:07 PM . Narrative 10/14/2017 4:07 PM SENIOR SPECIALIST This is a summary report. The complete [...] at C5-6. Mild anterior wedging of the V8eewyiaogs body without STIR hyperintensity to suggest acute [...] LUMBAR SPINE WO CONTRAST (10/14/2017 4:05 PM SENIOR SPECIALIST) Anatomical Region Laterality Modality Spine Other Impressions 10/14/2017 4:27 PM SENIOR SPECIALIST IMPRESSION: 1. Disc protrusion at the level of L3-L4 with narrowing of the foramina but no root compression 2. Disc bulge at the level of L5-S1 with posterior osteophytes causing narrowing of the right intervertebral foramen with root compression. This report was electronically signed by DESHAUN Marie?on 10/14/2017 4:27 PM . Narrative 10/14/2017 4:27 PM SENIOR SPECIALIST This is a summary report. The complete [...] ORDERABLES * HEMOGLOBIN A1C (10/01/2017 10:11 AM SENIOR SPECIALIST) Hemoglobin A1c 6.2 4.4 - 6.3 % [facility] Estimated Average Glucose 131 mg/dL [facility] Comment: HbA1c Interpretation: Treatment target values recommended by ADA and other clinical organizations should be used to evaluate metabolic control in patients. Treatment Target Values: Normal : < 5.7% Pre-diabetes: 5.7-6.4% Diabetes: Equal to or greater than 6.5% Reference: [place] [employer] Association Standards of Care in Diabetes -2014 In patients 70 years and older consider HbA1c target range of 7.0-7.5% Reference: ??Diabetes Mellitus in Older People: Position Statement on behalf of the International Association of Gerontology and Geriatrics (IAGG), the Diabetes Working Constitution Party for Older People (EDWPOP), and the International Task Force of Experts in Diabetes. ??Jm Smith, et al. J [employer] Association. 2012 Test results diagnostic [...] BLOOD SPECIMEN / Unknown 10/01/2017 10:11 AM SENIOR SPECIALIST 10/01/2017 10:28 AM SENIOR SPECIALIST Amalia Pizano MD LAB - CHEMISTRY ANDRE BETTENCOURT [facility] [address] [phone] * CULTURE AEROBIC (03/08/2017 2:00 PM CDT) Culture Aerobic SEE NOTE [facility] ([facility]) Comment: ??CULTURE, AEROBIC BACTERIA WITH GRAM STAIN ?MICRO NUMBER: ?[id number] ??TEST STATUS: ? FINAL ??SPECIMEN SOURCE: ?? [...] INCORRECT, PLEASE CONTACT CLIENT SERVICES. PHONE NUMBER: [phone] Test Performed at: [facility] [address] ??[id number] NUZHAT SARABIA MD 03/08/2017 2:00 PM CDT 03/06/2017 2:34 AM CDT Riccardo Chase MD LAB - MICROBIOLOGY O TOPHER Performing Organization Address [facility] Phone Number [facility] ([facility]) * LAB HISTORICAL RESULTS-ONBASE (03/06/2017) 03/06/2017 Historical Provider LAB - CHEMISTRY O TOPHER Performing Organization Address [facility] Phone Number [place] [id number] Care Teams Child And Adolescent Psychiatrist Relationship Specialty Start Date End Date Beto Rivers DO PCP - General 07/22/18
[2024-10-08 12:40] VITALS: PULSE 60; RESP 13; O2SAT 98
--- NOTE | 2024-10-08 12:50 | ED.GENADULT ---
HPI - General Adult General Chief complaint: Chest Pain Stated complaint: chest pain Time Seen by Provider: 10/08/24 12:03 History of Present Illness HPI narrative: 59-year-old male presenting to the emergency department for evaluation for chest pain. Patient states that he was walking to toilet time this morning when he had onset of dizziness. Patient states when he sat down on the toilet he had approximately 40 seconds chest pain that did radiate to his lower back. Patient states the pain then resolved. Patient denies any current chest pain. Patient's only complaint at this time is feel tired. Patient states he was not bearing down at that time. Patient states he did not fall from the toilet has no pain or injury. Patient states he is currently being worked up for gastritis and is taking omeprazole. Related Data Home Medications ?Medication ?Instructions ?Recorded ?Confirmed ?Last Taken ?Type bupropion HCl 150 mg tablet,12 hr 150 mg PO Q12H 12/31/21 01/25/22 Unknown History sustained-release aripiprazole 2 mg tablet 2 mg PO DAILY 01/25/22 01/25/22 Unknown History omeprazole 40 mg capsule,delayed 40 mg PO DAILY 01/25/22 01/25/22 Unknown History release sucralfate 1 gram tablet 1 g PO DAILY 01/25/22 01/25/22 Unknown History Allergies Allergy/AdvReac Type Severity Reaction Status Date / Time No Known Allergies Allergy Verified 01/25/22 17:08 Review of Systems Review of Systems: All systems reviewed & are unremarkable except as noted in HPI and below PMFSH Past Medical History Medical History Acute renal failure ADHD Anemia Essential hypertension Herniated disc Surgical History Surgical History H/O inguinal hernia repair History of surgery on lower extremity right lower leg surgery Family History Family History Mother Diabetes mellitus Social History Social History Smoking status: Light tobacco smoker Tobacco type: cigarettes Alcohol intake: never Alcohol use details: quit 27 years ago Substance use: never Substance use type: does not use Living arrangements: alone Gender identity (if verbalized by the patient): Male Spiritual care concerns: No Exam Narrative: APPEARANCE: Well appearing, no pain, no distress, well-nourished. HEAD: normocephalic, atraumatic. EYES: PERRLA/EOMI, conjunctivae clear. NOSE: Normal no drainage EARS:TMS clear with good light reflex. THROAT: Pharynx clear, no exudate. NECK: Supple. No adenopathy, no masses. RESPIRATORY: Airway patent, respirations nonlabored. Clear to auscultation bilaterally, no rales, rhonchi, wheezing. CARDIOVASCULAR: Regular rate and rhythm without murmurs rubs or gallops. ABDOMINAL: Soft, nontender, nondistended, normal bowel sounds MUSCULOSKELETAL: Moves all extremities. Strength/ROM intact, No edema, No calf tenderness. NEURO: Alert. Cranial nerves II through XII intact. Good gait. Good coordination SKIN: Warm, dry. Normal Color PSYCHIATRIC: Anxious affect Course Vital Signs Vital signs: Vital Signs Temperature 97.9 F 10/08/24 10:09 Pulse Rate 68 10/08/24 10:09 Respiratory Rate 16 10/08/24 10:09 Blood Pressure 146/90 H 10/08/24 10:09 Pulse Oximetry 100 10/08/24 10:09 Oxygen Delivery Room Air 10/08/24 10:09 Temperature 98.5 F 10/08/24 15:45 Pulse Rate 70 10/08/24 15:45 Respiratory Rate 17 10/08/24 15:45 Blood Pressure 139/76 10/08/24 15:45 Pulse Oximetry 98 10/08/24 15:45 Oxygen Delivery Room Air 10/08/24 13:24 Medical Decision Making [facility] Narrative Medical decision making narrative: 59-year-old male present to the emergency department for evaluation for 40 seconds of chest pain. Patient is afebrile with no leukocytosis and hemoglobin 11.3. Patient had negative serial troponins and negative serial EKGs. Patient was negative for influenza RSV and for COVID. CT was negative for pulmonary embolism and dissection. At time of re-evaluation patient continues to deny any current pain. Patient was encouraged of close follow-up with his primary care physician. All questions concerns were addressed patient was well-appearing at time of discharge. Differential Diagnosis Differential Diagnosis: Costochondritis, ACS, pulmonary embolism, pneumonia, pneumothorax, pleurisy COVID, RSV, influenza Vital Signs Vital Signs: Vital Signs Temperature 97.9 F 10/08/24 10:09 Pulse Rate 68 10/08/24 10:09 Respiratory Rate 16 10/08/24 10:09 Blood Pressure 146/90 H 10/08/24 10:09 Pulse Oximetry 100 10/08/24 10:09 Oxygen Delivery Room Air 10/08/24 10:09 Temperature 98.5 F 10/08/24 15:45 Pulse Rate 70 10/08/24 15:45 Respiratory Rate 17 10/08/24 15:45 Blood Pressure 139/76 10/08/24 15:45 Pulse Oximetry 98 10/08/24 15:45 Oxygen Delivery Room Air 10/08/24 13:24 Lab Data Lab results reviewed: Yes I reviewed the patient's lab results. 10/08/24 10:01 10/08/24 10:01 Labs: Lab Results 10/08/24 10/08/24 Range/Units 10:01 13:26 WBC 7.7 (4.5-10.0) K/mm3 RBC 4.03 L (4.6-6.20) M/mm3 Hgb 11.3 L (14.0-18.0) g/dL Hct 35.7 L (42.0-52.0) % MCV 88.6 (80-100) fl MCH 28.0 (26-34) pg MCHC 31.7 L (32-36) g/dl RDW 15.7 H (11.5-14.5) % Plt Count 378 H (150-375) k/mm3 MPV 9.0 (7.4-10.4) fl Immature Gran % (Auto) 0.1 (0-0.5) % Neut % (Auto) 57.9 (45.5-73.1) % Lymph % (Auto) 24.4 (18.3-44.2) % Harney % (Auto) 9.2 H (2.6-8.5) % Eos % (Auto) 7.5 H (0-4.4) % Baso % (Auto) 0.9 (0.2-1.2) % Lymph # (Auto) 1.88 (0.9-3.2) K/mm3 Harney # (Auto) 0.7 H (0.1-0.6) K/mm3 Eos # (Auto) 0.6 H (0-0.3) K/mm3 Baso # (Auto) 0.1 (0.0-0.1) K/mm3 Abs Immat Gran (auto) 0.01 (0.00-0.031) K/mm3 Absolute Neuts (auto) 4.4 (1.3-6.7) K/mm3 Absolute Nucleated RBC 0.000 (0.0-0.012) K/mm3 Nucleated RBC % 0.0 (0.0-0.2) % PT 12.8 (11.1-14.7) Seconds INR 0.9 APTT 27.4 (22.3-36.8) Seconds Sodium 140 (137-145) mmol/L Potassium 4.2 (3.4-5.0) mmol/L Chloride 102 (98-107) mmol/L Carbon Dioxide 28 (22-30) mmol/L Anion Gap 10 (4-12) mmol/L BUN 25 H (9-20) mg/dL Creatinine 1.14 (0.7-1.3) mg/dL Estim Creat Clear Calc 52 ml/min Estimated GFR > 60 (59 - ) Glucose 99 (65-110) mg/dL Calcium 10.4 H (8.4-10.2) mg/dL Total Bilirubin 0.3 (0.2-1.3) mg/dL AST 36 (17-59) U/L ALT 28 (6-50) U/L Alkaline Phosphatase 80 (38-126) U/L Troponin I < 0.012 < 0.012 (0.000-0.034) ng/mL Total Protein 8.0 (6.3-8.2) g/dL Albumin 4.3 (3.5-5.1) g/dL Lipase 282 (23-300) U/L Influenza A (RT-PCR) Negative (Negative) Influenza B (RT-PCR) Negative (Negative) RSV (RT-PCR) Negative (Negative) SARS-CoV-2 RNA (RT-PCR) Negative (Negative) Imaging Data Radiologist's impression: Impressions Chest X-Ray 10/08/24 10:57 IMPRESSION: 1: NO ACUTE CARDIOPULMONARY DISEASE. Chest CTA 10/08/24 13:31 IMPRESSION: No pulmonary embolus. No aortic dissection. The lungs are clear. Discharge Plan Discharge Clinical Impression: Atypical chest pain Patient Disposition: Home, Self-Care Condition: Stable Instructions: Antibiotic Form, Costochondritis (ED), Chest Wall Pain (ED) Additional Instructions: Ibuprofen for pain control. Have close follow-up with your primary care physician for additional outpatient cardiac follow-up. If you have any worsening symptoms then please call or return to the emergency department. Patient Language: South African Prescriptions: No Action sucralfate 1 gram tablet 1 g PO DAILY omeprazole 40 mg capsule,delayed release(DR/EC) 40 mg PO DAILY aripiprazole 2 mg tablet 2 mg PO DAILY cephalexin 500 mg capsule 500 mg PO Q8H 7 Days Qty: 21 0RF bupropion HCl 150 mg tablet sustained-release 12 hr 150 mg PO Q12H lisinopril 10 mg tablet 10 mg PO DAILY Qty: 90 0RF Follow-up/Referrals: Hernandez,JENNIFER Drake [Primary Care Provider] - Stand Alone Forms: Work/School Release IP Quality HEART score for chest pain patients History: slightly suspicious ECG: normal Age: > 45 and < 65 years Risk factors: 1 or 2 risk factors Troponin: < or = to 1x normal limit Heart score: 2
[2024-10-08 13:23] VITALS: BP 155/100; PULSE 68; RESP 19; O2SAT 100
[2024-10-08 13:24] VITALS: O2SAT 100
--- NOTE | 2024-10-08 13:26 | ECG_ITS ---
Test Date: 2024-10-08 14:21:45 Measurements Intervals [place] Rate: 61 P: 69 UT: 141 QRS: 8 QRSD: 109 T: 44 QT: 436 QTc: 441 Interpretive Statements SINUS RHYTHM POSSIBLE LEFT ATRIAL ENLARGEMENT [-0.1mV P WAVE IN V1/V2] POSSIBLE LEFT VENTRICULAR HYPERTROPHY [VOLTAGE CRITERIA PLUS LAE OR QRS WIDENING] Compared to ECG 10/08/2024 09:59:09 No significant changes Electronically Signed On 10-08-2024 14:49:31 HORTICULTURE/FLORICULTURE TEACHER by Nichole Tapia M.D.
[2024-10-08 14:02] LABS: Troponin I < 0.012 ng/mL (0.000-0.034)
[2024-10-08 14:17] VITALS: BP 139/92; PULSE 63; RESP 16; O2SAT 98
[2024-10-08 15:45] VITALS: BP 139/76; PULSE 70; RESP 17; TEMP 36.9; O2SAT 98
== END 2024-10-08 15:45 | disposition home or self-care (01) ==
PROVIDERS: Emergency Medicine; Emergency Provider Emergency Medicine; PCP Physician Assistant
DX: R07.89 Other chest pain (principal); I10 Essential (primary) hypertension; F90.9 Attention-deficit hyperactivity disorder, unspecified type; F17.210 Nicotine dependence, cigarettes, uncomplicated; D64.9 Anemia, unspecified; R94.31 Abnormal electrocardiogram [ECG] [EKG]
CPT/HCPCS: 36415; 71046; 71275; 80053; 83690; 84484; 85025; 85610; 85730; 87637; 93005; 99284; Q9967

== ENCOUNTER 2024-12-25 13:05 | Emergency (ER) | payer OTHER, SELFPAY ==
--- OUTSIDE RECORDS SUMMARY | 2024-12-25 13:07 | XMS_ITS ---
Author Organization [facility] Address [address] [place], [place] [address] Care Team Providers Care Clinical Lab Specialist Name Role Phone MISAEL PITTMAN Unavailable [phone] Noelle Ng Unavailable Unavailable REASON FOR VISIT *General care Encounters Encounter Location Date Provider Diagnosis [facility] [address] [facility] [address] [place], [place] [id number] 10/22/2023 MISAEL PITTMAN Plan Of Treatment No Information Progress Notes * Damon RAYMUNDODOB:1965 (59 yo M)Acc No.[id number]:10/22/2023 Patient: Damon TOM Provider: Aime Pittman DPM :1965 A ge:58 Y S ex:Male Date:10/22/2023 Address:[facility] [address] [id number] Subjective: * Chief Complaints: * 1 . *General care. * Medical History: Objective: * Vitals: Assessment: Plan: * Treatment: * Billing Information: * Visit Code: * Procedure Codes: * Electronic signature of MISAEL PITTMAN DPM on 12/25/2024 at 01:07 PM CDT Sign off status: Pending * Provider: Aime Pittman DPM Date: 10/22/2023 Generated for Jay monet/Brittany/eTransmitting on: 0 12/25/2024 01:07 PM CDT
--- OUTSIDE RECORDS SUMMARY | 2024-12-25 13:07 | XMS_ITS | Continuity of Care Document ---
Author Organization [facility] Address [address] [place] [address] Phone Care Team Providers Care Ore Roaster Name Role Phone Unavailable Unavailable Unavailable Allergies, Adverse Reactions, Alerts Substance Reaction Status Criticality No Known allergies Medications Medication Instructions Dosage Effective Dates (start - stop) Status Comments Bactrim DS 800 mg-160 mg Tab take 1 tablet by oral route every 12 hours 1.00 tablet - Active Procedures Procedure Date OFFICE/OUTPATIENT VISIT, [facility] Advance Directives Directive Yes / No Effective [...] Providers Copied on Encounter OFFICE/OUTPAT IENT VISIT, [facility] , [address], [place], [place], [id number], [place] tel:[phone] Tsering Escoto swollen face (chief complaint) Sialoadenitis No Information Family History Family Member Type Diagnosis Age At Onset No Information Payers Payer name Insurance type Covered constitution party ID Authoriza tion(s) No Information Social [...] And Reason For Visit From encounter dated '09/04/2011 13:40'. swollen face (chief complaint) Reason For [...]
--- OUTSIDE RECORDS SUMMARY | 2024-12-25 13:08 | XMS_ITS | Data Portability ---
Author Organization JILLIAN [facility] L[facility]SAY Address [address] [facility] [place] [address] Care Team Providers Care Airport Guide Name Role Phone NOELLE NG Primary Care Provider Unavailab le Assessment No assessment recorded. Plan of Treatment Reminders Order Date Submit Date Provider Last Modified By Organization Details Last Modified Time Details Appointments ANY 15 2024 10:45A M NELLY Yang Not available Not available Not available Lab PSA, serum or plasma 2024 025 [facility], [address], [place], [address], 12/14/2024 16:06:31 culture, urine 2024 025 [email or web address], [address], [place], [address], 12/14/2024 16:06:49 urinalysi s, complete 2024 025 [email or web address], [address], [place], [address], 12/14/2024 16:06:25 CMP, serum or plasma 2024 025 [email or web address], [address], [place], [address], 12/14/2024 16:06:18 CBC w/ auto diff 2024 025 [email or web address] [facility], [address], [place], [address], 12/14/2024 16:06:43 iron + TIBC + ferritin, serum [email or web address], [address], [place], [address], 12/14/2024 16:06:37 TSH + free T4, serum 2023 024 [facility], [address], [place], [address], 03/19/2024 15:33:25 CBC w/ auto diff 2023 024 [facility], [address], [place], [address], 03/15/2024 16:37:19 CMP, serum or plasma 2023 024 [facility], [address], [place], [address], 03/19/2024 15:33:24 lipid panel, serum 2023 024 [facility], [address], [place], [address], 03/19/2024 15:33:24 PSA, total, serum or plasma 2023 024 [facility], [address], [place], [address], 03/19/2024 15:33:25 HbA1c (hemoglob in A1c), blood 2023 024 [facility], [address], [place], [address], 03/19/2024 15:33:24 urinalysi s, dipstick 2017 018 [facility] In-Office Order, Internal Use Only DO Not Attach Compendium DO Not Attach Compendium, Do Not Delete/merge, [id number] 05/29/2018 16:47:24 CT + NG RNA, PCR, unspecifi ed specimen 2017 018 [facility], [address] [facility], [address], [place], [address], 06/01/2018 20:08:40 Referral psychiatr ist referral 2024 025 selene Rawls (), [address] [place], [address], 12/22/2024 14:15:04 Procedures None recorded. Surgeries None recorded. Imaging XR, esophagra m 2023 024 [facility], [address], [place], [address], 02/25/2024 17:46:58 Medication Orders hydroxyzi ne HCl 50 mg tablet 2024 025 [facility], [address], [place], [id number], 09/28/2024 11:51:07 lisinopri l 10 mg tablet 2024 025 [facility] #45177, [address], [place], [id number], 09/28/2024 11:51:12 bupropion HCl SR 200 mg tablet,12 hr sustained -release 2024 025 [facility] #94313, [address], [place], [id number], 09/28/2024 11:51:06 sertralin e 50 mg tablet 2024 025 [facility] #82246, [address], [place], [id number], 09/28/2024 11:51:08 quetiapin e 25 mg tablet 2023 025 [facility] [address], [place], [address], 09/28/2024 11:49:31 sertralin e 50 mg tablet 2023 024 [facility] [address], [place], [address], 02/04/2024 16:03:20 bupropion HCl SR 200 mg tablet,12 hr sustained -release 2023 024 [facility] [address], [place], [address], 09/28/2024 11:23:53 lisinopri l 10 mg tablet 2023 024 [facility] [address], [place], [address], 09/28/2024 11:23:05 prednison e 20 mg tablet 2018 019 [facility] #22863, [address], [place], [id number], 12/04/2023 14:13:24 triamcino lone acetonide 0.1 % topical cream 2018 019 [facility] #79638, [address] [facility] [place], [id number], 02/04/2024 15:31:35 bupropion HCl SR 150 mg tablet,12 hr sustained -release 2017 018 [facility] #18115, [address], [place], [id number], 12/04/2023 14:24:53 Patient TargetsNo targets recorded. Patient Instructions Encounter Date Encounter Id Patient Instructions Last Modified By Organization Details Last Modified Time 05/29/2018 [id number] peptic ulcer disease: care instructions graciela Not available 05/29/2018 15:37:06 bladder training : care instructions graciela Not available 05/29/2018 15:37:06 -Getting records from Pt's last pcm, Dr Porsha Rivers and [facility], where pt recently went to ER. I was present and available in the Family Medicine clinic to discuss this patients care during the appointment. I agree with the residents assessment and plan as documented. JESUS melton Not available 06/03/2018 14:58:10 11/12/2018 [id number] I certify that I was present and available in the family medicine clinic for discussion of this patient. I have reviewed the resident's note and agree with the stated assessment and treatment plan. DESIRE nick Not available 11/18/2018 23:30:07 Reason for Referral [...] Negati ve negati ve Not Available [facility] ([facility]) [address] [place], [address], 06/01/2018 20:08:40 05/29/20 18 06/01/2018 CT + NG RNA, PCR, unspe cifie d speci men neisseria gonorrhoeae, MARITZA Negati ve negati ve Not Available [facility] ([facility]) [address] [place], [address], 06/01/2018 20:08:40 05/29/20 18 05/29/2018 urina lysis [...] 05/29/2018 urina lysis , dipst ick Specific [place] 1.020 Not Available In-Off ice Order Internal [...] DO Not Attach Compendium, Do Not Delete/merge, [id number] 05/29/2018 15:36:58 05/29/20 18 05/29/2018 urina lysis [...] Attach Compendium, Do Not Delete/merge, 05/29/2018 15:36:58 01/08/20 22 01/08/2022 CBC W Auto Diffe renti al panel - Blood leukocytes [#/volume] in blood by automated count white blood cell count Not Available Not Available 11/01/2024 17:56:58 01/08/20 22 01/08/2022 CBC W Auto Diffe renti al panel - Blood erythrocytes [#/volume] in blood by automated count low red blood cell count Not Available Not Available 11/01/2024 17:56:58 01/08/20 22 01/08/2022 CBC W Auto Diffe renti al panel - Blood hemoglobin [mass/volume ] in blood low hemog lobin Not Available Not Available 11/01/2024 17:56:58 01/08/20 22 01/08/2022 CBC W Auto Diffe renti al panel - Blood hematocrit [volume fraction] of blood by automated count low hemat ocrit Not Available Not Available 11/01/2024 17:56:58 01/08/20 22 01/08/2022 CBC W Auto Diffe renti al panel - Blood MCV [entitic volume] by automated count MCV Not Available Not Available 10/10 17:56:58 01/08/20 22 01/08/2022 CBC W Auto Diffe renti al panel - Blood MCH [entitic mass] by automated count MCH Not Available Not Available 10/10 17:56:58 01/08/20 22 01/08/2022 CBC W Auto Diffe renti al panel - Blood MCHC [mass/volume ] by automated count MCHC Not Available Not Available 10/10 17:56:58 01/08/20 22 01/08/2022 CBC W Auto Diffe renti al panel - Blood erythrocyte distribution width [ratio] by automated count RDW Not Available Not Available 10/10 17:56:58 01/08/20 22 01/08/2022 CBC W Auto Diffe renti al panel - Blood platelets [#/volume] in blood by automated count plate let count Not Available Not Available 11/01/2024 17:56:58 01/08/20 22 01/08/2022 CBC W Auto Diffe renti al panel - Blood platelet mean volume [entitic volume] in blood by selam MPV Not Available Not Available 0 11/01/2024 17:56:58 01/08/20 22 01/08/2022 CBC W Auto Diffe renti al panel - Blood neutrophils [#/volume] in blood by automated count [place] neutr ophil s Not Available Not Available 11/01/2024 17:56:58 01/08/20 22 01/08/2022 CBC W Auto Diffe renti al panel - Blood lymphocytes [#/volume] in blood by automated count absol [place] lymph ocyte s Not Available Not Available 11/01/2024 17:56:58 01/08/20 22 01/08/2022 CBC W Auto Diffe renti al panel - Blood monocytes [#/volume] in blood by automated count [place] monoc ytes Not Available Not Available 11/01/2024 17:56:58 01/08/20 22 01/08/2022 CBC W Auto Diffe renti al panel - Blood eosinophils [#/volume] in blood by automated count [place] eosin ophil s Not Available Not Available 11/01/2024 17:56:58 01/08/20 22 01/08/2022 CBC W Auto Diffe renti al panel - Blood basophils [#/volume] in blood by automated count [place] basop hils Not Available Not Available 11/01/2024 17:56:58 01/08/20 22 01/08/2022 CBC W Auto Diffe renti al panel - Blood neutrophils/ 100 leukocytes in blood by automated count neutr ophil s Not Available Not Available 11/01/2024 17:56:58 01/08/20 22 01/08/2022 CBC W Auto Diffe renti al panel - Blood lymphocytes/ 100 leukocytes in blood by automated count lymph ocyte s Not Available Not Available 11/01/2024 17:56:58 01/08/20 22 01/08/2022 CBC W Auto Diffe renti al panel - Blood monocytes/10 0 leukocytes in blood by automated count monoc ytes Not Available Not Available 11/01/2024 17:56:58 01/08/20 22 01/08/2022 CBC W Auto Diffe renti al panel - Blood eosinophils/ 100 leukocytes in blood by automated count eosin ophil s Not Available Not Available 11/01/2024 17:56:58 01/08/20 22 01/08/2022 CBC W Auto Diffe renti al panel - Blood basophils/10 0 leukocytes in blood by automated count basop hils Not Available Not Available 11/01/2024 17:56:58 02/25/20 24 02/25/2024 XR, esoph agram No observ ation record ed. [address] [place] [address], [address], 10/10/2024 17:09:40 10/08/19 25 10/08/2024 XR, chest , 2 view No observ ation record ed. [address] [place] [address], [address], 10/08/2024 14:02:46 10/08/19 25 10/08/2024 CT, angio gram, chest , w/ contr ast No observ ation record ed. [address], [address], 10/08/2024 17:23:25 Result Notes None recorded. Problems Name Problem SNOMED Code Status Onset Date Resolution Date Notes Provider Name and Address Organization Details Recorded Time Dysuria 16395705 Active Dary buckley, [place] - [facility] 8 15:25:19 Urinary incontinenc e 447793837 Active 2017 Dary [place] [facility] 8 15:27:25 Abdominal pain 61770089 Active 2017 [place] [facility] 15:30:17 Cramp in lower limb 511443265 Active 2017 [place] [facility] 8 15:31:34 Dysphagia 71147674 Active 2017 [place] [facility] 15:39:26 Hypertensiv e disorder 95561160 Completed 201705/29/2018 [place] [facility] 16:48:07 Essential hypertensio n 88196100 Active 2017 [place] [facility] 16:48:13 Tobacco user 618457586 [place] [facility] 16:51:13 Dyssomnia 43723562 Active 2023 NELLY Yang Attn: Elma g,[address] [facility], [place], [address], [place] - [facility] 4 10:47:54 Intermitten t dysphagia 72415575 Active 2023 NELLY Yang Attn: Accountin g,[address] [facility], [place], [address], [place] [facility] 4 10:47:56 Benign essential hypertensio n 2173065 Active 2023 NELLY Yang Attn: Accountin g,[address] [facility], [place], [address], [place] [facility] 4 10:47:57 Mixed anxiety and depressive disorder 284430346 Active 2023 NELLY Yang Attn: Elma umana,[address] [facility], [place], [address], [place] - [facility] 4 10:47:59 Prostate specific antigen above reference range 845342067 Active 2024 NELLY Yang Attn: Elma umana,[address] [facility], [place], [address], [place] - [facility] 5 11:51:33 Anemia 143481210 Active 2024 NELLY Yang Attn: Elma umana,[address] [place], [address], [place] [facility] 5 11:51:34 Long-term drug therapy Active 2024 NELLY Yang Attn: Elma umana,[address] [place], [address], [place] [facility] 5 11:51:39 Body mass index less than 20 890312394 Active 2024 NELLY Yang Attn: Elma umana,[address] [place], [address], [place] [facility] 5 11:51:52 Problem Notes None recorded. Procedures Surgical History Date Name Laterality Status Provider Name and Address Organization Details Recorded Time 10/09/19 24 Cholecystectomy completed Eri Resendiz [place] - [facility] 02/04/2024 16:06:38 04/03/20 23 colonoscopy completed Nadine Espino LPN [place] - [facility] 04/01/2024 09:50:38 09/08/19 14 Hernia Repair completed Dary Le [place] [facility] 05/29/2018 14:39:31 Back Surgery completed Eri Resendiz [place] [facility] 02/04/2024 16:06:29 Imaging Results Imaging Date Name Status LastModified by Organiz ation Details LastModified Time 02/25/2024 XR, esophagram completed [email or web address] [address], [place], [address], 10/10/2024 17:09:40 10/08/2024 XR, chest, [address], [place], [address], 10/08/2024 14:02:46 10/08/2024 CT, angiogram, chest, w/ contrast completed [address], [place], [address], 10/08/2024 17:23:25 Procedure Notes None recorded. Medical Equipment None [...] Available Not Available famotidine 40 mg tablet Take by oral route for 30 days. active Not Available Not Available No t [...] every day by oral route at bedtime. 04/18/ 2025 active Not Available Not Available Not Avai [...] Not Available Vitals Date Recorded Body height Body mass index (BMI) Body weight Heart rate Oxygen saturation Oxygen saturation in Arterial blood by Pulse oximetry Body temperature Respiratory rate Systolic blood pressure Diastolic blood pressure Provider Name and Address Organization Details Last Updated DateTime 8 179.07 cm 21.1 kg/m2 61517.0 6 g 57 /min 98 % 98 % 97.7 [degF] 16 /min 132 mm[Hg] 88 mm[Hg] Neel Knott CMA [place] - [facility] 8 13:56:37 Date Recorded Body height Body mass index (BMI) Body weight Heart rate Oxygen saturation Oxygen saturation in Arterial blood by Pulse oximetry Body temperature Systolic blood pressure Diastolic blood pressure Provider Name and Address Organization Details Last Updated DateTime 9 179.07 cm 21.5 kg/m2 29443.0 4 g 79 /min 98 % 98 % 98 [degF] 130 mm[Hg] 90 mm[Hg] Hendria Cade, [place] [facility] 9 15:44:14 Date Recorded Body height Body mass index (BMI) Body weight Respiratory rate Oxygen saturation Oxygen saturation in Arterial blood by Pulse oximetry Heart rate Systolic blood pressure Diastolic blood pressure Provider Name and Address Organization Details Last Updated DateTime 4 179.07 cm 18.8 kg/m2 92027.1 4 g 18 /min 97 % 97 % 73 /min 142 mm[Hg] 98 mm[Hg] Eri Resendiz MA [facility] 4 15:35:54 Date Recorded Systolic blood pressure Diastolic blood pressure Provider Name and Address Organization Details Last Updated DateTime 02/04/2024 140 mm[Hg] 80 mm[Hg] NELLY Yang Attn: Accounting, [place], [address], [facility] 02/04/2024 15:56:36 Date Recorded Body height Body mass index (BMI) Body weight Oxygen saturation Oxygen saturation in Arterial blood by Pulse oximetry Heart rate Systolic blood pressure Diastolic blood pressure Provider Name and Address Organization Details Last Updated DateTime 5 179.07 cm 19 kg/m2 77180.3 8 g 98 % 98 % 70 /min 138 mm[Hg] 82 mm[Hg] Eri Resendiz MA [facility] 5 11:27:02 Date Recorded Respiratory rate Systolic blood pressure Diastolic blood pressure Provider Name and Address Organization Details Last Updated DateTime 09/28/2024 18 /min 130 mm[Hg] 84 mm[Hg] NELLY Yang Attn: Accounting, [address] [place], [address], [facility] 09/28/2024 11:51:27 Social History Question Answer Notes LastModified by Organizat ion Details LastModified Time Tobacco Smoking Status Current Every Day Smoker DENNIS Chris, [facility] 05/29/2018 13:54:25 Do You Have An [...] Response Coronary Artery Disease N Other N High Blood Pressure Y Atrial Fibrillation N Kidney or Bladder Problems N Thyroid Problems N GI Problems N Depression N COPD N Blood Clots N Skin Problems N Anemia N Heart Attack ([place]) N Anxiety Disorder N Diabetes N Muscle, Joint, or Bone Problems N Seizures/Epilepsy N Acid Reflux (GERD) N Cancer N Stroke N Asthma N Allergies N High Cholesterol N Hepatitis N Liver Disease N Headaches N Osteoporosis N Heart Failure N Past Encounters Encounter ID Performer Location Encounter Start Date Encounter Closed Date Diagnosis/Indication Diagnosis SNOMED-CT Code Diagnosis ICD10 Code Diagnosis Note [id number] Laurie Bernabe MD [facility] [address] [address] 05/29/2018 13:00:43 06/02/2018 09:48:42 Dysuria 06755494 R30.0 Burning sensation when urinating. UA WNL. DDX STI. Urinary incontinence 165 390172 R32 Pt waits until he suddenly has [...] urinate before sleeping-P rovided handout Abdominal pain 94194754 R10.9 Diffuse abdominal pain alleviated w/ food, pantoprazo le helps a little. Assoc dark stool and constipati on, unintentio nal 20lb weight loss in last couple months. Smokes cigarettes . Epigastric and RLQ tenderness on PE. DDx ulcer and constipati on.-Contin ue Pantoprazo le. Pt to call if no improvemen t-Begin OTC stool softener PRN-Counse lled on smoking cessation Cramp in lower limb 4499 99779 R25.2 B/l LE cramps like 2/2 standing on feet all day.-Provi ded handout on leg stretches Dysphagia 61762514 R13.1 0 Food getting stuck in his throat and coming back up while swallowing for 4 months, drinking water w/ food helps.-Ref erral for GI for swallow study or endoscopy Essential hypertension 69429264 I10 132/88 today. Has been on lisinopril 10mg but stopped in mid april (1 month ago).-F/u in 6 months, restart lisinopril if elevated Tobacco user 517810978 Z 72.0 1/2 ppd, 39 pack year hx. Reports Wellbutrin has worked in the past.-Coun selled on tobacco use risks. Pt understand s. [id number] Mckenna Montes DO [facility] 47 [address] [facility] [address] [place] [address] 11/12/2018 15:18:17 11/16/2018 09:50:03 Contact dermatitis 93698565 L25.9 Allergic contact dermatitis since starting new job wearing nitrile gloves. Erythemato us excoriated rash on palm and dorsal hands and wrist and elbows bilaterall y.- stop wearing nitrile gloves, note provided to work- steroid 60-40-20, 3 wk taper- kenalog cream- fu one week [id number] NELLY Yang [facility] [place] [address] [place] [address] 02/04/2024 15:14:27 04/26/2024 19:46:32 Mixed anxiety and depressive disorder 183302769 F41.8 refill on sertraline 75mg total daily. refill on wellbutrin SR 200mg bid. Benign ess ential hypertension 2627289 I10 refill on lisinopril 10mg daily. Dyssomnia 22554869 G47.9 trial of quetiapine 25mg qhs for sleep and mood combinatio n. Long-term drug therapy 375597884 Z79.899 routine labs are due Intermitte nt dysphagia 36049393 R13.19 refer for esophagram screening xray Cholesterol screening 27 9417041 Z13.220 fasting lipids due Diabetes m ellitus screening 979743146 Z13.1 a1c screening due Screening for malignant neoplasm of prostate 333465673 Z12.5 annual psa due Thyroid di sorder screening 078227045 Z13.29 routine thyroid panel due [id number] NELLY Yang [facility] [place] [address] [place] [address] 09/28/2024 11:14:03 09/28/2024 15:03:39 Mixed anxiety and depressive disorder 925964903 F41.8 on sertraline 75mg total daily. refill on wellbutrin SR 200mg bid. We are also referring him to a psychiatri st to establish and take over management of his mental health Benign ess ential hypertension 8774627 I10 on lisinopril 10mg daily. Refill given blood pressure stable Intermitte nt dysphagia 43960280 R13.19 esophagram summer 2023 was normal. EGD was still ordered but he lost his insurance and did not f/u to schedule this. Patient needs to investigat e looking into seeing if he can get state medical insurance at this time. He says that he will do that this week to inquire with the public aid office. He needs to have an EGD scope due to persisting intermitte nt dysphagia despite esophagram being stable Dyssomnia 04660668 G47.9 For persistent insomnia we will trial hydroxyzin e 50 mg at bedtime Long-term drug therapy 723239343 Z79.899 CMP is due Prostate s pecific antigen above reference range 613575623 R97.20 pt did not complete additional UA and psa labs that were ordered in f/u for mildly elevated PSA. calls were made to remind and also letter mailed. He must go to [facility] to complete. New orders provided today Anemia 378743952 D64.9 pt did not complete additional labs that were ordered in the summer 2023. These labs including CBC and iron studies are ordered again. Body mass index less than 20 292086728 Z68.1 BMI is 19 Health Concerns Section Related Observation LastModified by Organization Detai ls LastModified Time None Recorded Concern Status LastModified by Organization Details LastModified Time None Recorded Advance Directives Directive N: Payers Encounter Date Sequence Insurance Name Policy Number Policy Stephens Covered Member ID Stephens Member ID Guarantor Name 05/29/2018 1 [facility] (MEDICAID HMO) Damon Raymundo [id number] Damon Raymundo 02/04/2024 2 [place] [employer] [place] Damon Raymundo [id number] Damon Raymundo 02/04/2024 1 [facility] [id number] Damon Raymundo [id number] Damon Raymundo Notes Date Note Type Note [...] w/ food, pantoprazole helps a little. Currently 10. Nonradiating. Reports dark stool since onset. Last [...] Etoh use, rec drug use. 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 Lives w/ roommate. HTN: Hx of HTN, on lisinopril 10 mg daily, hasn't taken it since mid april 09 issues w/ insurance and seeing alst . Last PCM: dr porsha Bernabe MD Attn: Accounting,[address] 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 Itchy and painful. Does not remember any abnormal exposure i.e new chemicals or plant exposures (addended as we now know nitrile gloves). 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 Rash on palm and dorsal surface with spread to wrists and elbows bilaterally. Denies any recent f/c/cp/sob/n/v/changes in bowel or bladder habits/changes in vision/dizziness/lightheadedne ss/unexplained weight loss Mckenna Montes DO Attn: Accounting,[address] [facility], [place], [address], [facility] 11/18/2018 23:30:10 02/04/20 24 text/htm l Anxiety/DepressionReported [...] be treated. NELLY Yang Attn: Accounting,[address] [facility], [place], [address], [facility] 04/15/2024 17:49:56 09/28/19 25 text/htm l AnemiaReported bypatient.Notes:Patient had anemia on his previous labs and an upper endoscopy procedure was ordered on April 02 but he has not completed that at this time because he lost his insurance. He does have colon screening completed Marchnxiety/DepressionReported bypatient.Notes:pt has depression and anxiety with long [...] stoolsHypertensionReported bypatient.Notes:pt is taking lisinopril 10mg daily.InsomniaReported bypatient.Quality:symptoms worse in the evening Severity:worsening Duration:frequent Modifying Factors:new stressors in life Associated Symptoms:anxiety;depression psa mild elevation: pt was to complete free and % psa additional labs and never completed those labs and was not able to get referred to urology as he lost his insurance. NELLY Yang Attn: Accounting,[address] [facility], [place], [address], [facility] 10/10/2024 17:13:19
--- OUTSIDE RECORDS SUMMARY | 2024-12-25 13:08 | XMS_ITS | Data Portability ---
Author Organization [facility], Main Office Address [address] [place] [address] Assessment No assessment recorded. Plan of Treatment Reminders Order Date Submit Date Provider Last Modified By Organization Details Last Modified Time Details Appointments None recorded. Lab TSH + free T4, serum 2022 023 [email or web address] [facility], 2022 [address], [address], [place], [address], 4 14:37:39 lipid panel, serum 2022 023 [email or web address] [facility], 2022 Dilia [address], [place], [address], 4 14:37:38 iron + total iron-bindin g capacity (TIBC), serum 2022 023 [email or web address] [facility], 2022 [address], [place], [address], 4 14:37:38 ferritin, serum or plasma 2022 023 [email or web address] [facility], 2022 [address], [place], [address], 4 14:37:38 CBC w/ auto diff 2022 023 [email or web address] [facility], 2022 [address], [place], [address], 4 14:37:38 CMP, serum or plasma 2022 023 [email or web address] [facility], 2022 [address], [place], [address], 4 14:37:39 PSA, total, serum or plasma 2022 023 [email or web address] [facility], 2022 [address], [place], [address], 4 14:37:38 HbA1c (hemoglobin A1c), blood 2022 023 [email or web address] [facility], 2022 [address], [place], [address], 4 14:37:38 Referral psychiatris t referral 2022 023 [email or web address] [facility], [address] [place] [address], [address], [place], [address], 3 15:53:22 Procedures colonoscopy screening (PROC) 2022 023 [email or web address] Not available 3 15:52:45 Surgeries None recorded. Imaging None recorded. Medication Orders bupropion HCl SR 200 mg tablet,12 hr sustained-r elease [address] [facility] [address] [place], [address], 3 12:25:59 lisinopril 10 mg tablet [address] [facility] [address] [place], [address], 3 12:26:01 Patient TargetsNo targets recorded. Patient [...] and/u L 3.8-10 .8 normal Not Available [address], [address], 01/08/2022 07:49:18 01/08/20 22 01/08/2022 CBC (INCL UDES DIFF/ PLT) red blood cell count 3.79 marycarmen on/uL 4.20-5 .80 low Not Available [facility] [address], [address], 01/08/2022 07:49:18 01/08/20 22 01/08/2022 CBC (INCL UDES DIFF/ PLT) hemoglobin 11.1 g/dL 13.2-1 7.1 low Not Available [facility] [address], [address], 01/08/2022 07:49:18 01/08/20 22 01/08/2022 CBC (INCL UDES DIFF/ PLT) hematocrit 34.0 % 38.5-5 0.0 low Not Available [facility] [address], [address], 01/08/2022 07:49:18 01/08/20 22 01/08/2022 CBC (INCL UDES DIFF/ PLT) MCV 89.7 fL 80.0-1 00.0 normal Not Available [address], [address], 01/08/2022 07:49:18 01/08/20 22 01/08/2022 CBC (INCL UDES DIFF/ PLT) MCH 29.3 pg 27.0-3 3.0 normal Not Available [facility] [address], [address], 01/08/2022 07:49:18 01/08/20 22 01/08/2022 CBC (INCL UDES DIFF/ PLT) MCHC 32.6 g/dL 32.0-3 6.0 normal Not Available [address], [address], 01/08/2022 07:49:18 01/08/20 22 01/08/2022 CBC (INCL UDES DIFF/ PLT) RDW 12.5 % 11.0-1 5.0 normal Not Available [address], [address], 01/08/2022 07:49:18 01/08/20 22 01/08/2022 CBC (INCL UDES DIFF/ PLT) platelet count 388 thous and/u L 140-40 0 normal Not Available [address], [address], 01/08/2022 07:49:18 01/08/20 22 01/08/2022 CBC (INCL UDES DIFF/ PLT) MPV 10.3 fL 7.5-12 .5 normal Not Available [address], [address], 01/08/2022 07:49:18 01/08/20 22 01/08/2022 CBC (INCL UDES DIFF/ PLT) absolute neutrophils 5027 cells /uL 1500-7 800 normal Not Available [address], [address], 01/08/2022 07:49:18 01/08/20 22 01/08/2022 CBC (INCL UDES DIFF/ PLT) absolute lymphocytes 2173 cells /uL 850-39 00 normal Not Available [facility] [address], [address], 01/08/2022 07:49:18 01/08/20 22 01/08/2022 CBC (INCL UDES DIFF/ PLT) absolute monocytes 763 cells /uL 200-95 0 normal Not Available [address], [address], 01/08/2022 07:49:18 01/08/20 22 01/08/2022 CBC (INCL UDES DIFF/ PLT) absolute eosinophils 189 cells /uL 15-500 normal Not Available [facility] [address], [address], 01/08/2022 07:49:18 01/08/20 22 01/08/2022 CBC (INCL UDES DIFF/ PLT) absolute basophils 49 cells /uL 0-200 normal Not Available [facility] [address], [address], 01/08/2022 07:49:18 01/08/20 22 01/08/2022 CBC (INCL UDES DIFF/ PLT) neutrophils 61.3 % normal Not Available [facility] [address], [address], 01/08/2022 07:49:18 01/08/20 22 01/08/2022 CBC (INCL UDES DIFF/ PLT) lymphocytes 26.5 % normal Not Available [facility] [address], [address], 01/08/2022 07:49:18 01/08/20 22 01/08/2022 CBC (INCL UDES DIFF/ PLT) monocytes 9.3 % normal Not Available [facility] [address], [address], 01/08/2022 07:49:18 01/08/20 22 01/08/2022 CBC (INCL UDES DIFF/ PLT) eosinophils 2.3 % normal Not Available [facility] [address], [address], 01/08/2022 07:49:18 01/08/20 22 01/08/2022 CBC (INCL UDES DIFF/ PLT) basophils 0.6 % normal Not Available [facility] [address], [address], 01/08/2022 07:49:18 01/08/20 22 01/08/2022 IRON, TIBC AND KEKE TIN PANEL iron, total 69 mcg/d L 50-180 normal Not Available [address] [address] [place], [address], 01/08/2022 07:49:17 01/08/20 22 01/08/2022 IRON, TIBC AND KEKE TIN PANEL iron binding capacity 384 mcg/d L_(ca lc) 250-42 5 normal Not Available [facility] [address] [address] [place], [address], 01/08/2022 07:49:17 01/08/20 22 01/08/2022 IRON, TIBC AND KEKE TIN PANEL % saturation 18 %_(ca lc) 20-48 low Not Available [address] [place], [address], 01/08/2022 07:49:17 01/08/20 22 01/08/2022 IRON, TIBC AND KEKE TIN PANEL ferritin 29 NG/mL 38-380 low Not Available [address] [place], [address], 01/08/2022 07:49:17 01/10/20 22 01/01/2022 CT, abdom en + pelvi s, w/ contr ast No observ ation record ed. [id number], [place], [address], 11/06/2022 17:50:29 Result Notes None recorded. 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 Procedures Surgical History Date Name Laterality Status Provider Name and Address Organization Details Recorded Time 01/03/20 cardiac catheterization completed Not Available [facility] 11/06/2022 17:44:52 09/08/19 Hernia repair w/mesh completed Not Available [facility] 11/06/2022 17:44:52 Imaging Results Imaging Date Name Status LastModified by Organiz ation Details LastModified Time 01/01/2022 CT, abdomen + pelvis, w/ contrast completed [id number] [address] [place] [address] [address], [place], [address], 11/06/2022 17:50:29 Procedure Notes None recorded. Medical [...] Not Available Not Available Not Avai lable [place] 3 otc, takes daily 2019 active Not [...] Date Recorded Body mass index (BMI) Body height Oxygen saturation Oxygen saturation in Arterial blood by Pulse oximetry Heart rate Body temperature Body weight Systolic blood pressure Diastolic blood pressure Systolic blood pressure Diastolic blood pressure Provider Name and Address Organization Details Last Updated DateTime 1 20.8 kg/m2 182.88 cm 96 % 96 % 72 /min 97.7 [degF] 01212.3 5 g 120 mm[Hg] 80 mm[Hg] 124 mm[Hg] 80 mm[Hg] Not Available [facility] 3 17:46:15 Date Recorded Body mass index (BMI) Body height Oxygen saturation Oxygen saturation in Arterial blood by Pulse oximetry Heart rate Respiratory rate Body temperature Body weight Systolic blood pressure Diastolic blood pressure Provider Name and Address Organization Details Last Updated DateTime 2 19.4 kg/m2 182.88 cm 99 % 99 % 70 /min 16 /min 97.8 [degF] 04950.7 1 g 140 mm[Hg] 90 mm[Hg] Not Available [facility] 3 17:46:16 Date Recorded Body mass index (BMI) Body height Oxygen saturation Oxygen saturation in Arterial blood by Pulse oximetry Heart rate Respiratory rate Body temperature Body weight Systolic blood pressure Diastolic blood pressure Provider Name and Address Organization Details Last Updated DateTime 2 20 kg/m2 182.88 cm 97 % 97 % 89 /min 16 /min 97.6 [degF] 60042.9 5 g 122 mm[Hg] 72 mm[Hg] Not Available [facility] 3 17:46:16 Date Recorded Body height Body temperature Body mass index (BMI) Body weight Respiratory rate Oxygen saturation Oxygen saturation in Arterial blood by Pulse oximetry Heart rate Systolic blood pressure Diastolic blood pressure Provider Name and Address Organization Details Last Updated DateTime 3 182.88 cm 97.6 [degF] 19.4 kg/m2 18950.7 1 g 16 /min 97 % 97 % 61 /min 128 mm[Hg] 80 mm[Hg] MATTY Coello [facility] 3 11:55:49 Social History Question Answer Notes LastModified by Organizat ion Details LastModified Time Tobacco Smoking Status Current Every Day Smoker MATTY Coello [facility] 02/19/2023 11:46:38 Do You Have An Advance Directive? No [id number] Information not available 11/06/2022 What Is Your Level Of Alcohol Consumption? None [id number] Information not available 11/06/2022 Do You Wear A Helmet When Biking? No [email or web address] Information not available 02/19/2023 What Is Your Level Of Caffeine Consumption? Moderate [id number] Information not available 11/06/2022 In The 14 Days Before Symptom Onset, Have You Had Close Contact With A Laboratory-confir med COVID-19 While That Case Was Ill? No Information not available 02/19/2023 In The 14 Days Before Symptom Onset, Have You Had Close Contact With A Person Who Is Under Investigation For COVID-19 While That Person Was Ill? No [email or web address] Information not available 02/19/2023 Are You Currently Employed? Yes [email or web address] Information not available 02/19/2023 What Type Of Diet Are You Following? SPECIFIC Protien Shake Daily [id number] Information not available 11/06/2022 What Is Your Occupation? [employer] [email or web address] Information not available 02/19/2023 Have There Been Any Changes To Your Family Or Social Situation? No Information no t available 02/19/2023 Are There Any Guns Present In Your Home? No [email or web address] Information not available 02/19/2023 Do You Use Insect Repellent Routinely? Yes [email or web address] Information not available 02/19/2023 Do You Have A Medical Power Of Assembler Handbags? No [email or web address] Information not available 02/19/2023 What Is Your Relationship Status? Single [id number] Information not available 11/06/2022 Do You Use Your Seat Belt Or Car Seat Routinely? Yes [email or web address] Information not available 02/19/2023 Do You Have Smoke And Carbon Monoxide Detectors In Your Home? Yes [email or web address] Information not available 02/19/2023 Are You Passively Exposed To Smoke? No Information no t available 02/19/2023 Are There Any Smokers In Your House? Yes Information not available 02/19/2023 How Much Tobacco Do You Smoke? 0.25 PPD [id number] Information not available 11/06/2022 Do You Feel Stressed (tense, Restless, Nervous, Or Anxious, Or Unable To Sleep At Night)? [id number] Information not available 02/19/2023 Do You Use Any Illicit Or Recreational Drugs? No [email or web address] Information not available 02/19/2023 Do You Use Sunscreen Routinely? Yes [email or web address] Information not available 02/19/2023 Has Tobacco Cessation Counseling Been Provided? No [email or web address] Information not available 02/19/2023 How Many Years Have You Smoked Tobacco? 26 Information not available 02/19/2023 Have You Recently Traveled Abroad? No [email or web address] Information not available 02/19/2023 Do You Have Any Dietary Restrictions? No [email or web address] Information not available 02/19/2023 Do You Or Have You Ever Used Any Other Forms Of Tobacco Or Nicotine? No [email or web address] Information not available 02/19/2023 Sex: Male Functional Status Question Answer Note LastModified by Organizat ion Details LastModified Time What is your exercise level? Moderate [id number] Information not available 11/06/2022 Mental Status None recorded. Family History Relationship Description Onset Age of this Age Resolved Age Notes LastModified by Organization Details LastModified Time Mother Type 2 diabetes mellitus [email or web address] Not available 02/19 11:46:37 Father Heart disease [id number] Not available 11/06/2022 17:44:54 Medical History Condition Response HEADACHES/MIGRAINES Y ANXIETY DISORDER Y DEPRESSION (INCLUDING POST ) Y DIZZINESS Y ASTHMA Y Past Encounters Encounter ID Performer Location Encounter Start Date Encounter Closed Date Diagnosis/Indication Diagnosis SNOMED-CT Code Diagnosis ICD10 Code Diagnosis Note [id number] [facility] [address] [place] [address] 07/03/2021 00:00:00 07/03/2021 13:54:38 [id number] [facility] [address] [place] [address] 01/04/2022 00:00:00 01/04/2022 17:25:27 [id number] [facility] [address] [place] [address] 01/30/2022 00:00:00 01/30/2022 11:59:01 [id number] NELLY Yang [facility] [address] [place] [address] 02/19/2023 11:44:15 02/19/2023 12:28:43 Adult health examination 386035410 Z00.01 well exam completed. Anemia 917556736 D64.9 hx of anemia from PUD> screening iron studies and cbc due Mixed anxi ety and depressive disorder 838115193 F41.[address] for more involved evaluation /managemen t of mental health. History of peptic ulcer 953031575 Z87.11 stable. asymptomat ic of flare up Cholesterol screening 27 1328860 Z13.220 fasting lipids due Diabetes m ellitus screening 346140935 Z13.1 a1c screening due Screening for malignant neoplasm of prostate 015121085 Z12.5 PSA due Screening for malignant neoplasm of colon 918135430 Z12.11 colonoscop y ordered again Thyroid di sorder screening 463413731 Z13.29 screening TFTs due Hypertensive disorder 38 971723 I10 stable on lisinopril 10mg daily Renewal of prescription 739741285 Z76.0 refill meds [id number] Madison Caicedo NP [facility] [address] [address] 03/13/2023 09:23:07 03/13/2023 15:54:27 [id number] Madison Caicedo NP [facility] [address] [address] 04/10/2023 11:22:32 04/10/2023 14:48:26 [id number] Madison Caicedo NP [facility] [address] [address] 05/08/2023 11:06:17 05/08/2023 11:46:32 [id number] Madison Caicedo NP [facility] [address] [address] 06/05/2023 11:24:59 06/05/2023 12:49:23 [id number] Madison Caicedo NP [facility] [address] [place] [address] 07/03/2023 11:59:32 07/03/2023 12:38:30 [id number] Madison Caicedo NP [facility] [address] [place] [address] 08/07/2023 12:14:40 08/07/2023 15:14:48 [id number] Madison Caicedo NP [facility] [address] [place] [address] 09/11/2023 10:51:12 09/11/2023 13:17:31 Health Concerns Section Related Observation LastModified by Organization Detai ls LastModified Time None Recorded Concern Status LastModified by Organization Details LastModified Time None Recorded Advance Directives Directive N: Payers Encounter Date Sequence Insurance Name Policy Number Policy Stephens Covered Member ID Stephens Member ID Guarantor Name 02/19/2023 1 [facility] [id number] Damon Raymundo [id number] Damon Raymundo Notes Date Note Type Note [...] in exercise capacity; no snoring Not Available [facility] 07/03/2021 13:54:38 01/05/20 22 text/htm l Generic [...] that wasn't discussed with him. Not Available [facility] 01/04/2022 17:25:27 01/31/20 22 text/htm l Generic [...] manage him in more depth. Not Available [facility] 01/30/2022 11:59:01 02/20/20 23 text/htm l Anxiety/DepressionReported [...] capacity; no snoring;fatigue Wellness NELLY Yang [address] [facility], [facility] [address], [place], [address], [facility] 03/07/2023 22:23:09
--- OUTSIDE RECORDS SUMMARY | 2024-12-25 13:08 | XMS_ITS | Patient Health Record ---
Author Organization [facility] Address [address] [place], [place] [address] Care Team Providers Care Floral Designer Name Role Phone MISAEL PITTMAN Unavailable [phone] Noelle Ng Unavailable Unavailable Allergies No Known Allergies Reason For Referral No Information Medications Medication SIG (Take, Route, Fr equency, Duration) Notes Start Date End Date Status buPROPion HCl Active Sertraline HCl Activ e Immunizations Vaccine Route Administration Date Status Comme nts Influenza, high dose seasonal Unknown 08/06/2023 Admini stered Plan Of Treatment No Information Insurance Providers Payer Name Payer Address Payer Phone Subscriber Number Group Number Insured Name Patient Relationship to Insured Coverage Start Date Coverage End Date [facility] [address] [address] [place] [address] [id number] Damon Raymundo Self - patient is the insured Medical (General) History Medical History History ICD Code Leg/Feet cramps high blood pressure
--- OUTSIDE RECORDS SUMMARY | 2024-12-25 13:09 | XMS_ITS | Clinical Summary ---
Author Organization [facility] Address [address] [place] [address] Care Team Providers Care Co Op Name Role Phone Unavailable Primary Care Provider [...] Td Vaccines ( 1 - Tdap) 1983 Pneumococcal Vaccine: 50+ Ye ars (1 of 1 - PCV) 2014 Zoster Vaccines (1 of 2) 2014 COVID-19 Vaccine ( - 2023-2 5 season) 2024 RSV Immunization or 60+ Years (1 [...]
--- OUTSIDE RECORDS SUMMARY | 2024-12-25 13:09 | XMS_ITS | Clinical Summary ---
Author Organization [facility] Address [address] [place] [address] Care Team Providers Care Client Renewal Specialist Name Role Phone Beto Rivers DO Primary Care Provider [phone] Source Comments [facility],non-owned Affiliates and Associated Physician Practices is amultiple site organization consisting of ambulatory clinics and hospital sitesin [place], [place], [place] and [place]. This disclosure is being madepursuant to the Care Everywhere program and may not contain all information available regarding this patient. Last updated 18.[facility] Social History Tobacco Use Types Packs/Day Years Used Date Smoking Tobacco: Never Assessed Sex and Gender Information Value Date Recorded Sex Assigned at Not on file Legal Sex Male 5:23 AM [employer] Gender Identity Not on file Sexual Orientation Not on file Last Filed Vital Signs Vital Sign Reading Time Taken Comments Blood Pressure 127/83 10/29/2017 9:01 AM [employer] Pulse 74 10/29/2017 9:01 AM [employer] SERVIC[employer] Temperature 36.7 C (98 F) 10/01/2017 8:44 AM [employer] SERVICER Respiratory Rate - - Oxygen Saturation 97% 10/29/2017 9:01 AM [employer] Inhaled Oxygen Concentration - - Weight 74.8 kg (165 lb) 10/29/2017 9:01 AM [employer] SERVIC[employer] Height 182.9 cm (6') 10/29/2017 9:01 AM [employer] SERVICER Body Mass Index 22.38 10/29/2017 9:01 AM [employer] SERVICER Plan of Treatment Health Maintenance Due Date Last Done Comments GERALDINE (AGES 45-75) - COL ON CA SCREENING [...] VACCINE (1 - 2023-2 5 season) 2024 DEPRESSION SCREENING 09/08/2024 INFLUENZA VACCINE (Season Ended) 2025 Respiratory Syncytial Virus (RSV) Vaccine Pt: or [...] to complete this topic MENINGOCOCCAL (Group B) VACC INE SHARED DECISION-MAKING Aged Out No longer eligibl e based on patient's age to complete this topic MENINGOCOCCAL GROUPS A/C/Y/W VACCINE Aged Out No longer eligible b ased on patient's age to complete this topic Insurance OUTLOOK [employer] Care Teams Client Renewal Specialist Relationship Specialty Start Date End Date Beto Rivers DO [facility] - General 07/22/18
--- OUTSIDE RECORDS SUMMARY | 2024-12-25 13:09 | XMS_ITS | Clinical Summary ---
Author Organization [facility] Address [address] [place] [address] Care Team Providers Care Computing Consultant Name Role Phone Unavailable Primary Care Provider [...]
--- OUTSIDE RECORDS SUMMARY | 2024-12-25 13:09 | XMS_ITS ---
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 He has an area on the ball of the right foot that feels as though he is stepping on a thorn. His toenails are thick and press against his shoes., Patient presents for at-risk foot care . The patient has painful toenails and calluses that are causing difficulty with ambulation and shoegear. The onset is gradual Medications Medication SIG (Take, Route, Fr equency, Duration) Notes Start Date End Date Status buPROPion HCl Active Sertraline HCl Activ e Vital Signs Height 70 in 08/06/2023 Weight 150 lbs 08/06/2023 BMI 21.52 kg/m2 08/06/2023 Height-cm 177.8 cm 08/06/2023 Weight-kg 68.04 kg 08/06/2023 Encounters Encounter Location Date Provider Diagnosis [facility] [address] [facility] [address] [place], [place] [id number] 08/06/2023 MISAEL PITTMAN Tinea unguium B35.1 ; Metatarsalgia of right foot M77.41 ; Acquired keratosis [keratoderma] palmaris et plantaris L85.1 ; Atherosclerosis of [place] arteries of extremities with intermittent claudication, bilateral legs I70.213 ; Other eccrine sweat disorders L74.8 ; Pain in right foot M79.671 and Pain in left foot M79.672 Assessments Encounter Date Diagnosis (ICD Code) Assessment Notes Treatment Notes Treatment Clinical Notes Section Notes 08/06/2023 Tinea unguium (ICD-10 - B35.1) Nails 1-5 Bilateral were debrided extensively with nail nippers and emery board, reducing length and girth to pink healthy tissue with any subungual debris and necrotic tissue removed 08/06/2023 Metatarsalgia of right foot (ICD-10 - M77.41) 08/06/2023 Acquired keratosis [keratoderma] palmaris et plantaris (ICD-10 - L85.1) A total of 1 corns or calluses, as described in the note above, were cut and pared utilizing a #15 blade 08/06/2023 Atherosclerosis of [place] arteries of extremities with intermittent claudication, bilateral legs (ICD-10 - I70.213) 08/06/2023 Other eccrine sweat disorders (ICD-10 - L74.8) 08/06/2023 Pain in right foot (ICD-10 - M79.671) 08/06/2023 Pain in left foot (ICD-10 - M79.672) Plan Of Treatment Treatment Notes Assessment Notes Tinea unguium Nails 1-5 Bilateral were debrided extensively with nail nippers and emery board, reducing length and girth to pink healthy tissue with any subungual debris and necrotic tissue removed Acquired keratosis [keratode rma] palmaris et plantaris A total of 1 corns or calluses, as described in the note above, were cut and pared utilizing a #15 blade Next Appt Details Follow Up: 10 - 12 weeks, Re ason: At-Risk Foot care, sooner if problems develop. Progress Notes * Damon RAYMUNDODOB:1965 (57 yo M)Acc No.[id number]:08/06/2023 Progress Notes Patient: Damon TOM Provider: Aime Pittman DPM :1965 A ge:57 Y S ex:Male Date:08/06/2023 Address:[address], [address] [place], [place] [id number] Subjective: * Chief Complaints: * 1 . 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 He has an area on the ball of the right foot that feels as though he is stepping on a thorn. His toenails are thick and press against his shoes.. 2. Patient presents for at-risk foot care . The patient has painful toenails and calluses that are causing difficulty with ambulation and shoegear. The onset is gradual. * HPI: H PI: New Complaint P pily presents for a new patient consultation. P atient complains of an issue to bilateral ingrown on great toes whole nail causing pain on both R ight 5th toe feels like a needle is in the toe P atient denies any injury., , M A: MJ , . * ROS: G eneral / Constitutional: Patient denies c hills, fever, weight loss. ? M usculoskeletal: Patient denies w eakness, broken foot bone. ? P eripheral Vascular: Patient denies p ain / cramping in legs after exertion, ulceration of feet. S kin: Patient complains of n ail changes, fungal nails, calluses and corns. N eurologic: Patient denies b alance difficulty, confusion, difficulty speaking, dizziness. * Medical History: L eg/Feet cramps, High blood pressure. * Medications: T aking Sertraline HCl , Taking buPROPion HCl * Allergies: N .K.D.A. Objective: * Vitals: S hoe Size: 10, Wt:150lbs, Wt-k.04 kg, Ht: 70 in, Ht-cm: 177.8 cm, BMI:21.52Index, Body Surface Area: 1.83. * Examination: P hysical Examination: General appearance: A lert, pleasant, well-nourished and in no acute distress. D ermatologic: Skin findings: S kin is thin, atrophic and lacking pedal hair.. Hypertrophic / hyperkeratotic lesion: p lantar aspect of the right 5th metatarsal head. Nail pathology: N ails 1-5 bilateral are elongated, thick, discolored, and dystrophic with subungual debris. They are painful to palpation. ? V ascular: Dorsalis pedis pulse: 0 /4, bilateral. Posterior tibial pulse: 1 /4, bilaterally. Capillary refill: g reater than 3 seconds. Edema: N o edema bilateral. N eurologic: Gross sensation G rossly intact to light touch. There is negative Tinel's sign. M usculoskeletal: Muscle Strength M uscle strength is 5/5 in regards to dorsiflexion, plantarflexion, inversion, and eversion in bilateral lower extremities. Pain on palpation p ain on palpation to the 5th metatarsal head of the right foot. Assessment: * Assessment: 1. M etatarsalgia of right foot - M77.41 (Primary) 2 . T inea unguium - B35.1 3 .?Acquired keratosis [keratoderma] palmaris et plantaris - L85.1 4 . A therosclerosis of [place] arteries of extremities with intermittent claudication, bilateral legs - I70.213 5 . O ther eccrine sweat disorders - L74.8 6 . P ain in right foot - M79.671 7 . P ain in left foot - M79.672 Plan: * Treatment: 2. A cquired keratosis [keratoderma] palmaris et plantaris Notes: A total of 1 corns or calluses, as described in the note above, were cut and pared utilizing a #15 blade * Follow Up: 1 0 - 12 weeks (Reason: At-Risk Foot care, sooner if problems develop.) * Billing Information: * Visit Code: 21329 Office Visit, New Pt., Level 3. * Procedure Codes: * SS CONTROL SPECIALIST Sign off status: Completed true * Provider: Aime Pittman DPM Date: 10/06/2022 Generated for Jay monet/Brittany/Neda on: 0 12/25/2024 01:08 PM CDT History and Physical Notes * HPI (History of Present Illness) Category Sub-Category Detail Notes Category Not es HPI New Complaint Patient presents for a new patient consultation. Patient complains of an issue to bilateral ingrown on great toes whole nail causing pain on both Right 5th toe feels like a needle is in the toe Patient denies any injury., , MA: MJ , Examination Category Sub-Category Detail Notes Category Not es Dermatologic Skin findings: Skin is thin, at rophic and lacking pedal hair. Nail pathology: Nails 1-5 bilateral are elongated, thick, discolored, and dystrophic with subungual debris. They are painful to palpation Hypertrophic / hyperkeratotic lesion: pl eliot aspect of the right 5th metatarsal head Neurologic Gross sensation Grossly intact t o light touch. There is negative Tinel's sign Vascular Dorsalis pedis pulse: 0/4, bilateral Edema: No edema bilateral Capillary refill: greater than 3 secon ds Posterior tibial pulse: 1/4, bilaterally Physical Examination General appearance: Alert, pleasant, well-nourished and in no acute distress Musculoskeletal Muscle Strength Muscle strength is 5/5 in regards to dorsiflexion, plantarflexion, inversion, and eversion in bilateral lower extremities Pain on palpation pain on palpation to the 5th metatarsal head of the right foot
--- OUTSIDE RECORDS SUMMARY | 2024-12-25 13:09 | XMS_ITS | Continuity of Care Document ---
Author Organization [facility] Address [address] [place] [address] Phone Care Team Providers Care Netsuite Consultant Name Role Phone Unavailable Unavailable Unavailable Allergies, Adverse Reactions, Alerts Substance Reaction Status Criticality No Known allergies Medications Medication Instructions Dosage Effective Dates (start - stop) Status Comments Bactrim DS 800 mg-160 mg Tab take 1 tablet by oral route every 12 hours 1.00 tablet - Active Procedures Procedure Date OFFICE/OUTPATIENT VISIT, [facility] Advance Directives Directive Yes / No Effective [...] Providers Copied on Encounter OFFICE/OUTPAT IENT VISIT, [facility] , [address], [place], [place], [address], [place] tel:[phone] Tsering Escoto swollen face (chief complaint) Sialoadenitis [...]
[2024-12-25 13:29] VITALS: BP 126/79; PULSE 87; RESP 20; TEMP 36.1; O2SAT 98
--- NOTE | 2024-12-25 14:11 | ED_ITS ---
HPI - Extremity Injury (Lower) General Chief Complaint: Skin/Abscess/Foreign Body Stated Complaint: RT Leg Pain Source: patient Mode of arrival: ambulatory Limitations: no limitations History of Present Illness HPI Narrative: 59-year-old male presents to Express Care with complaints of pain, swelling and warmth to his right calf since yesterday. Patient denies injury to the area. Patient has been taking [id number] ibuprofen with little relief. Patient reports that he stands on his feet up to 13 hours per day for his job. Patient has been taking [id number] ibuprofen with little relief. Patient denies chest pain, shortness of breath, fever, body aches or chills. Patient reports that he has had an intentional weight loss of 15 lb over the past year. Patient is a smoker. Patient denies history of blood clots MD complaint: other (right calf pain, swelling ) Onset (ago): day(s) (2) Relieving factors: rest Exacerbating factors: weight bearing and palpation Other symptoms: none Treatments prior to arrival: NSAIDS Related Data Home Medications ?Medication ?Instructions ?Recorded ?Confirmed ?Last Taken ?Type bupropion HCl 150 mg tablet,12 hr 150 mg PO Q12H 12/31/21 01/25/22 Unknown History sustained-release aripiprazole 2 mg tablet 2 mg PO DAILY 01/25/22 01/25/22 Unknown History omeprazole 40 mg capsule,delayed 40 mg PO DAILY 01/25/22 01/25/22 Unknown History release Allergies Allergy/AdvReac Type Severity Reaction Status Date / Time No Known Allergies Allergy Verified 12/25/24 13:50 Review of Systems Constitutional: Constitutional: Denies chills, Denies fatigue, Denies fever(s) and Denies weakness ENT: Denies vertigo, Denies dizziness, Denies epistaxis and Denies nasal congestion Cardiovascular: Cardiovascular: Denies chest pain Respiratory: Respiratory: Denies cough, Denies dyspnea and Denies wheezing Gastrointestinal: Gastrointestinal: Denies diarrhea, Denies nausea and Denies vomiting Musculoskeletal: Comments: Pain, swelling and warmth to right posterior calf Integumentary/Breasts: Skin/Breast: Denies pruritus and Denies rash Neurologic: Denies dizziness, Denies syncope and Denies headache(s) [facility] Past Medical History Medical History ADHD Essential hypertension Acute renal failure Anemia Herniated disc Surgical History Surgical History History of surgery on lower extremity right lower leg surgery H/O inguinal hernia repair Family History Family History Mother Diabetes mellitus Social History Social History Smoking status: Light tobacco smoker Tobacco type: cigarettes Alcohol intake: never Alcohol use details: quit 27 years ago Substance use: never Substance use type: does not use Living arrangements: alone Gender identity (if verbalized by the patient): Male Spiritual care concerns: No Comments At time of signature, I agree with nursing past medical, surgical, social and family history. There is no relevant family history pertinent to the presenting complaint. Exam Const: General: healthy appearing and no acute distress Nutritional Appearance: well nourished Orientation/consciousness: patient oriented x3 Limitations: no limitations HENMT: Head: normal to inspection Neck: Neck: normal visual inspection Resp: Effort & Inspection: normal respiratory effort Auscultation: clear to auscultation bilaterally, no crackles, no rales, no rhonchi and no wheezes Other: Mild shortness of breath noted upon rest Cardio: Rate: regular rate Rhythm: regular rhythm Heart sounds: no murmurs Skin: General skin exam: normal color Wounds: no wounds Neuro: General: patient oriented x3 and moves all extremities Cranial nerves: Yes Nystagmus not present Speech: normal speech Extrem: Other: Swelling and warmth noted to right posterior calf. There is a small area of bruising noted to right posterior calf. There is no erythema noted. Right calf measures 29 cm versus left calf measuring 27 cm Psych: Affect: normal affect Attitude: cooperative Course Course Level of Care: Express Care Visit Vital Signs Vital signs: Vital Signs Temperature 36.1 C L 12/25/24 13:29 Pulse Rate 87 12/25/24 13:29 Respiratory Rate 20 12/25/24 13:29 Blood Pressure 126/79 12/25/24 13:29 Pulse Oximetry 98 12/25/24 13:29 Oxygen Delivery Room Air 12/25/24 13:29 Temperature 36.1 C L 12/25/24 13:29 Pulse Rate 87 12/25/24 13:29 Respiratory Rate 20 12/25/24 13:29 Blood Pressure 126/79 12/25/24 13:29 Pulse Oximetry 98 12/25/24 13:29 Oxygen Delivery Room Air 12/25/24 13:29 Transfer Transfered to: [facility] Transfer rationale: Right calf pain and swelling, rule out DVT Accepting physician: Angela VILLEGAS Transfer comments: Transfer form completed and signed. Patient refuses ambulance transfer at this time. MDM - Extremity Injury (Lower) MDM Narrative Medical decision making narrative: Due to symptoms, patient will be referred to [facility] emergency room for further evaluation and to rule out DVT. Called ER and report was given to Angela VILLEGAS. transfer form completed and signed. Patient refuses ambulance transfer and will drive himself to the emergency room. Differential Diagnosis Differential diagnosis: Likely other (DVT, muscle strain) Critical Care Time Critical Care Time Critical Care Time: No Discharge Plan Discharge Clinical Impression: Pain of right calf Patient Disposition: Acute Care Hospital Condition: Stable Additional Instructions: Proceed directly to [facility] the ER for further evaluation and higher level of care Patient Language: Portuguese Prescriptions: No Action sucralfate 1 gram tablet 1 g PO DAILY omeprazole 40 mg capsule,delayed release(DR/EC) 40 mg PO DAILY aripiprazole 2 mg tablet 2 mg PO DAILY cephalexin 500 mg capsule 500 mg PO Q8H 7 Days Qty: 21 0RF bupropion HCl 150 mg tablet sustained-release 12 hr 150 mg PO Q12H lisinopril 10 mg tablet 10 mg PO DAILY Qty: 90 0RF Follow-up/Referrals: Hernandez,JENNIFER Drake [Primary Care Provider] - Time of Disposition: 14:21
== END 2024-12-25 14:19 | disposition short-term general hospital (02) ==
PROVIDERS: Emergency Provider Nurse Practitioner Family; PCP Physician Assistant
DX: M79.661 Pain in right lower leg (principal); F17.210 Nicotine dependence, cigarettes, uncomplicated; I10 Essential (primary) hypertension
CPT/HCPCS: 99212; G0463

== ENCOUNTER 2024-12-25 14:47 | Emergency (ER) | payer OTHER, SELFPAY ==
--- NOTE | ~2024-12-25 | US_ITS ---
RIGHT LOWER EXTREMITY VENOUS ULTRASOUND Ordering provider: Angela Alanis PA-C History: . swelling/pain . Comparison: None. FINDINGS: --COMMON FEMORAL: Patent and free of thrombus. Normal compressibility, phasic flow and augmentation. --PROXIMAL SUPERFICIAL FEMORAL: Patent and free of thrombus. Normal compressibility, phasic flow and augmentation. --DISTAL SUPERFICIAL FEMORAL: Patent and free of thrombus. Normal compressibility, phasic flow and au gmentation. --POPLITEAL: Patent and free of thrombus. Normal compressibility, phasic flow and augmentation. --POSTERIOR TIBIAL: Patent and free of thrombus. Normal compressibility, phasic flow and augmentation . IMPRESSION: Negative right lower extremity venous US. No deep vein thrombosis. Reviewed, dictated and finalized at location A.
--- OUTSIDE RECORDS SUMMARY | 2024-12-25 14:49 | XMS_ITS | Clinical Summary ---
Author Organization [facility] Address [address] [place] [address] Care Team Providers Care Swing Frame Grinder Operator Name Role Phone Unavailable Primary Care Provider [...]
--- OUTSIDE RECORDS SUMMARY | 2024-12-25 14:49 | XMS_ITS | Clinical Summary ---
Author Organization [facility] Address [address] [place] [address] Care Team Providers Care Branch Operations Coordinator Name Role Phone Unavailable Primary Care Provider [...]
--- OUTSIDE RECORDS SUMMARY | 2024-12-25 14:50 | XMS_ITS | Clinical Summary ---
Author Organization [facility] Address [address] [facility] [place] [address] Care Team Providers Care Latex Caster Name Role Phone Beto Rivers DO Primary Care Provider [phone] Source Comments [facility],non-owned Affiliates and Associated Physician Practices is amultiple site organization consisting of ambulatory clinics and hospital sitesin [place], [place], [place] and [place]. This disclosure is being madepursuant to the Care Everywhere program and may not contain all information available regarding this patient. Last updated 18.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 TECHNICIAN Gender Identity Not on file Sexual Orientation Not on file Last Filed Vital Signs Vital Sign Reading Time Taken Comments Blood Pressure 127/83 10/29/2017 9:01 AM BURNER TECHNICIAN Pulse 74 10/29/2017 9:01 AM BURNER TECHNICIAN Temperature 36.7 C (98 F) 10/01/2017 8:44 AM BURNER TECHNICIAN Respiratory Rate - - Oxygen Saturation 97% 10/29/2017 9:01 AM BURNER TECHNICIAN Inhaled Oxygen Concentration - - Weight 74.8 kg (165 lb) 10/29/2017 9:01 AM BURNER TECHNICIAN Height 182.9 cm (6') 10/29/2017 9:01 AM BURNER TECHNICIAN Body Mass Index 22.38 10/29/2017 9:01 AM BURNER TECHNICIAN Plan of Treatment Health Maintenance Due Date [...] patient's age to complete this topic Insurance [employer] Care Teams Latex Caster Relationship Specialty Start Date End Date Beto Rivers DO [facility] - General 07/22/18
--- OUTSIDE RECORDS SUMMARY | 2024-12-25 14:50 | XMS_ITS | Continuity of Care Document ---
Author Organization [facility] Address [address] [place] [address] Phone Care Team Providers Care Equalizing Saw Operator Name Role Phone Unavailable Unavailable Unavailable Allergies, Adverse Reactions, Alerts Substance Reaction Status Criticality No Known allergies Medications Medication Instructions Dosage Effective Dates (start - stop) Status Comments Bactrim DS 800 mg-160 mg Tab take 1 tablet by oral route every 12 hours 1.00 tablet - Active Procedures Procedure Date OFFICE/OUTPATIENT VISIT, [facility] Advance Directives Directive Yes / [...] Providers Copied on Encounter OFFICE/OUTPAT IENT VISIT, [facility] , [address], [place], [place], [address], [place] tel:[phone] Tsering Escoto swollen face (chief complaint) Sialoadenitis [...]
[2024-12-25 14:53] VITALS: BP 149/87; PULSE 60; RESP 16; TEMP 36.8; O2SAT 95
--- OUTSIDE RECORDS SUMMARY | 2024-12-25 15:10 | XMS_ITS | Continuity of Care Document ---
Author Organization [facility] Address [address] [place] [address] Phone Care Team Providers Care Diffuser Operator Name Role Phone Unavailable Unavailable Unavailable Allergies, Adverse Reactions, Alerts Substance Reaction Status Criticality No Known allergies Medications Medication Instructions Dosage Effective Dates (start - stop) Status Comments Bactrim DS 800 mg-160 mg Tab take 1 tablet by oral route every 12 hours 1.00 tablet - Active Procedures Procedure Date OFFICE/OUTPATIENT VISIT, [facility] Advance Directives Directive Yes / No Effective [...] Providers Copied on Encounter OFFICE/OUTPAT IENT VISIT, [facility] , [address], [place], [place], [id number], [place] tel:[phone] Tsering Escoto swollen face (chief complaint) Sialoadenitis [...]
--- OUTSIDE RECORDS SUMMARY | 2024-12-25 15:10 | XMS_ITS | Clinical Summary ---
Author Organization [facility] Address [address] [place] [address] Care Team Providers Care Special Services Agent Name Role Phone Unavailable Primary Care Provider [...]
--- OUTSIDE RECORDS SUMMARY | 2024-12-25 15:10 | XMS_ITS | Clinical Summary ---
Author Organization [facility] Address [address] [place] [address] Care Team Providers Care Backhaul Driver Name Role Phone Unavailable Primary Care Provider [...]
--- OUTSIDE RECORDS SUMMARY | 2024-12-25 15:10 | XMS_ITS | Clinical Summary ---
Author Organization [facility] Address [address] [place] [address] Care Team Providers Care Subway Guard Name Role Phone Beto Rivers DO Primary Care Provider [phone] Source Comments [facility],non-owned Affiliates and Associated Physician Practices is amultiple site organization consisting of ambulatory clinics and hospital sitesin [place], [place], [place] and [place]. This disclosure is being madepursuant to the Care Everywhere program and may not contain all information available regarding this patient. Last updated 18.[facility] [employer] Social History Tobacco Use Types Packs/Day Years Used Date Smoking Tobacco: Never Assessed Sex and Gender Information Value Date Recorded Sex Assigned at Not on file Legal Sex Male 5:23 AM CUSTOM FURRIER Gender Identity Not on file Sexual Orientation Not on file Last Filed Vital Signs Vital Sign Reading Time Taken Comments Blood Pressure 127/83 10/29/2017 9:01 AM CUSTOM FURRIER Pulse 74 10/29/2017 9:01 AM CUSTOM FURRIER Temperature 36.7 C (98 F) 10/01/2017 8:44 AM CUSTOM FURRIER Respiratory Rate - - Oxygen Saturation 97% 10/29/2017 9:01 AM CUSTOM FURRIER Inhaled Oxygen Concentration - - Weight 74.8 kg (165 lb) 10/29/2017 9:01 AM CUSTOM FURRIER Height 182.9 cm (6') 10/29/2017 9:01 AM CUSTOM FURRIER Body Mass Index 22.38 10/29/2017 9:01 AM CUSTOM FURRIER Plan of Treatment Health Maintenance Due Date [...] patient's age to complete this topic Insurance [employer] [place] [address] Care Teams Subway Guard Relationship Specialty Start Date End Date Beto Rivers DO [facility] - General 07/22/18
--- NOTE | 2024-12-25 16:04 | ED.GENADULT ---
HPI - General Adult General Chief complaint: Extremity Problem,Nontraumatic Stated complaint: Right calf pain-Sent by r/o DVT Time Seen by Provider: 12/25/24 14:58 History of Present Illness HPI narrative: 59-year-old male presents emergency department for evaluation for intermittent right calf pain. Patient denies any other muscular cramping. Patient denies any falls or injuries. Related Data Home Medications ?Medication ?Instructions ?Recorded ?Confirmed ?Last Taken ?Type bupropion HCl 150 mg tablet,12 hr 150 mg PO Q12H 12/31/21 12/25/24 Unknown History sustained-release aripiprazole 2 mg tablet 2 mg PO DAILY 01/25/22 12/25/24 Unknown History omeprazole 40 mg capsule,delayed 40 mg PO DAILY 01/25/22 12/25/24 Unknown History release Allergies Allergy/AdvReac Type Severity Reaction Status Date / Time No Known Allergies Allergy Verified 12/25/24 14:58 Review of Systems Review of Systems: All systems reviewed & are unremarkable except as noted in HPI and below PMFSH Past Medical History Medical History ADHD Essential hypertension Acute renal failure Anemia Herniated disc Surgical History Surgical History History of surgery on lower extremity right lower leg surgery H/O inguinal hernia repair Family History Family History Mother Diabetes mellitus Social History Social History Smoking status: Light tobacco smoker Tobacco type: cigarettes Alcohol intake: never Alcohol use details: quit 27 years ago Substance use: never Substance use type: does not use Living arrangements: alone Gender identity (if verbalized by the patient): Male Spiritual care concerns: No Exam Narrative: APPEARANCE: Well appearing, no pain, no distress, well-nourished. HEAD: normocephalic, atraumatic. EYES: PERRLA/EOMI, conjunctivae clear. NOSE: Normal no drainage EARS:TMS clear with good light reflex. THROAT: Pharynx clear, no exudate. NECK: Supple. No adenopathy, no masses. RESPIRATORY: Airway patent, respirations nonlabored. Clear to auscultation bilaterally, no rales, rhonchi, wheezing. CARDIOVASCULAR: Regular rate and rhythm without murmurs rubs or gallops. ABDOMINAL: Soft, nontender, nondistended, normal bowel sounds MUSCULOSKELETAL: Moves all extremities. Strength/ROM intact, No edema, No calf tenderness. NEURO: Alert. Cranial nerves II through XII intact. Grossly intact SKIN: Warm, dry. Normal Color Course Vital Signs Vital signs: Vital Signs Temperature 98.2 F 12/25/24 14:53 Pulse Rate 60 12/25/24 14:53 Respiratory Rate 16 12/25/24 14:53 Blood Pressure 149/87 H 12/25/24 14:53 Pulse Oximetry 95 12/25/24 14:53 Temperature 98.2 F 12/25/24 14:53 Pulse Rate 60 12/25/24 14:53 Respiratory Rate 16 12/25/24 14:53 Blood Pressure 149/87 H 12/25/24 14:53 Pulse Oximetry 95 12/25/24 14:53 Medical Decision Making MDM Narrative Medical decision making narrative: 59-year-old male presenting emergency department for evaluation for right calf pain. Patient does have some tenderness to the calf to palpation with no ecchymosis and no significant edema and no evidence of cellulitis. Ultrasound was negative for DVT. Suspect musculoskeletal injury. Differential Diagnosis Differential Diagnosis: Cellulitis, DVT, muscular strain fracture Vital Signs Vital Signs: Vital Signs Temperature 98.2 F 12/25/24 14:53 Pulse Rate 60 12/25/24 14:53 Respiratory Rate 16 12/25/24 14:53 Blood Pressure 149/87 H 12/25/24 14:53 Pulse Oximetry 95 12/25/24 14:53 Temperature 98.2 F 12/25/24 14:53 Pulse Rate 60 12/25/24 14:53 Respiratory Rate 16 12/25/24 14:53 Blood Pressure 149/87 H 12/25/24 14:53 Pulse Oximetry 95 12/25/24 14:53 Imaging Data Radiologist's impression: Impressions Venous Doppler Study 12/25/24 16:03 IMPRESSION: Negative right lower extremity venous US. No deep vein thrombosis. Discharge Plan Discharge Clinical Impression: Pain of right calf Patient Disposition: Home Condition: Stable Instructions: Antibiotic Form, Leg Pain (ED) Additional Instructions: Tylenol and ibuprofen for pain control. Have close follow-up with your primary care physician. If you have any worsening symptoms then please call or return to the emergency department. Patient Language: Spanish Prescriptions: No Action omeprazole 40 mg capsule,delayed release(DR/EC) 40 mg PO DAILY aripiprazole 2 mg tablet 2 mg PO DAILY bupropion HCl 150 mg tablet sustained-release 12 hr 150 mg PO Q12H lisinopril 10 mg tablet 10 mg PO DAILY Qty: 90 0RF Follow-up/Referrals: Hernandez,JENNIFER Drake [Primary Care Provider] - Stand Alone Forms: Work/School Release IP
== END 2024-12-25 16:25 | disposition home or self-care (01) ==
PROVIDERS: Emergency Provider Emergency Medicine; PCP Physician Assistant
DX: M79.661 Pain in right lower leg (principal); F90.9 Attention-deficit hyperactivity disorder, unspecified type; I10 Essential (primary) hypertension
CPT/HCPCS: 93971; 99284